=== PATIENT | female | born 1935 | race Caucasian/White ===

== ENCOUNTER 2016-03-01 13:10 | Emergency (ER) | payer OTHER, MEDICARE ==
[~2016-03-01] VITALS: Ht 157.5 cm; Wt 58.0 kg
[~2016-03-01 13:10] MED LIST: ACET-1311 PO; ALBU0.5N2 NEB; APR25 PO; ATOR10TA88 PO; BENZ100C7 PO; CLOP1TAB15 PO; CRG25 PO; ERGO1CAP35 PO; ISOS20TA15 PO; LEVO50TA6 PO; LIDO1CRE24 TOP; NRV5 PO; NTRGSL/4 UT; OXGN; RBTUDL5 PO; SEVE800T7 PO
[2016-03-01 13:17] VITALS: TEMP 36.9; Ht 157.5 cm; Wt 58.0 kg
[2016-03-01] MEDS ORDERED: LSX80 PO (13:43)
[2016-03-01] MEDS ORDERED: B-COCAP21 PO (13:43)
[2016-03-01] MEDS ORDERED: CRG25 PO (13:43)
[2016-03-01] MEDS ORDERED: APR25 PO (13:43)
[2016-03-01] MEDS ORDERED: HYDR-5688 PO (13:43)
[2016-03-01] MEDS ORDERED: VTMD PO (13:43)
[2016-03-01] MEDS ORDERED: LIDO1CRE16 TOP (13:43)
--- NOTE | 2016-03-01 14:35 | EMERGENCY ROOM VISIT NOTE ---
History Report prepared by Dennsi: Huong Cruz Under the Supervision of: Davi BernalO. First contact with patient: 13:40 Chief Complaint: BLEEDING Stated Complaint: LEG OOZING Nursing Triage Summary: pt to the ED via EMS from dialysis where she was sent for uncontrolled bleeding today pt stated she woke up this am with some bleedin from her fistula and pt went to dialysis and they could not get it to stop when they were finished pt did recieve entire dialysis pt has old fistula in left arm and current cath is in the left thigh, pressure dressing applied by EMS and they stated that the bleeding is not squirting pt has no complaints of pain History of Present Illness The patient is an 80 year old female who presents to the Emergency Room with complaints of persistent bleeding from her fistula on her left thigh. The patient states that the bleeding started around 0700 this morning before she had dialysis. She notes that the bleeding was squirting this morning. The patient states that she received her full dialysis this morning prior to arrival. She denies any pain to the area. The patient notes a previous fistula to her left arm for dialysis, but states that fistula no longer works. Source of History: patient Onset: 0700 this morning Position: other (left thigh) Symptom Intensity: no pain Quality: other (bleeding, squirting) Timing: other (persistent) Review of Systems See HPI for pertinent positives & negatives. A total of 10 systems reviewed and were otherwise negative. Past Medical & Surgical Medical Problems: (1) CAD (coronary artery disease) (2) Cat bite (3) Cellulitis of left upper extremity (4) CHF (congestive heart failure) (5) CHF (congestive heart failure), NYHA class II (6) DM2 (diabetes mellitus, type 2) (7) ESRD (end stage renal disease) on dialysis (8) Head injury due to trauma (9) History of atrial fibrillation (10) History of TIA/CVA (11) HLD (hyperlipidemia) (12) HTN (hypertension) (13) Hypothyroidism (14) Ischemic cardiomyopathy (15) LBBB (left bundle branch block) (16) WANDA (obstructive sleep apnea) (17) Pacemaker Surgical Problems: (1) Reduction of SBO (2) S/P cholecystectomy (3) S/p removal of pelvic structures (4) S/P T&A (status post tonsillectomy and adenoidectomy) Family History Heart disease Social History Smoking Status: Unknown if Ever Smoked Alcohol Use: occasionally Drug Use: none Marital Status: Housing Status: lives alone Occupation Status: retired Current/Historical Medications Scheduled Amlodipine Besylate (Amlodipine Besylate), 2.5 MG PO DAILY Atorvastatin (Lipitor), 10 MG PO HS B-Complex W/ C & Folic Acid (Reymundo Caps), 1 CAP PO QPM Carvedilol (Carvedilol), 25 MG PO BID Clopidogrel (Plavix), 75 MG PO DAILY Ergocalciferol (Vitamin D), 50,000 UNITS PO WK Furosemide (Furosemide), 80 MG PO DAILY Hydralazine Hcl (Apresoline), 25 MG PO TID Hydrocodone/Acetaminophen 5MG/325MG ([place] 5MG/325MG), 1 TAB PO Q4 Isosorbide Dinitrate (Isordil), 20 MG PO TID Levothyroxine Sodium (Levothyroxine Sodium), 50 MCG PO DAILY Oxygen (Oxygen), 2 LITERS NA HS Sevelamer Carbonate (Renvela), 2,400 MG PO TIDM Miscellaneous Medications Lidocaine-Prilocaine (Lidocaine/Prilocaine), 1 APPLN TOP Allergies Coded Allergies: BEE STING (Verified Allergy, Severe, ANAPHYLAXIS, 03/01/16) Baclofen (Verified Allergy, Severe, PSYCHOSIS, 03/01/16) MELLO Inhibitors (Verified Allergy, Unknown, UNKNOWN, 03/01/16) Physical Exam Vital Signs Date Time Temp Pulse Resp B/P Pulse Ox O2 Delivery O2 Flow Rate FiO2 03/01/16 13:22 Nasal Cannula 2.0 03/01/16 13:22 78 18 13:17 36.9 79 20 144/73 93 Nasal Cannula 2.0 Physical Exam CONSTITUTIONAL/VITAL SIGNS: Reviewed / noted above. GENERAL: Non-toxic in appearance. INTEGUMENTARY: Warm, dry, and [place]. HEAD: Normocephalic. EYES: without scleral icterus or trauma. ENT/OROPHARYNX: clear and moist. LYMPHADENOPATHY/NECK: Is supple without lymphadenopathy or meningismus. RESPIRATORY: Lungs clear and equal. CARDIOVASCULAR: Regular rate and rhythm. GI/ABDOMEN: Soft and nontender. No organomegaly or pulsatile mass. No rebound or guarding. Normal bowel sounds. EXTREMITIES: There is a dialysis fistula in the left groin area. No active bleeding at this time. Small 1 cm skin wound overlying the fistula that is currently not bleeding. Warm and well perfused. BACK: No CVA tenderness. NEUROLOGICAL: Intact without focal deficits. PSYCHIATRIC: normal affect. MUSCULOSKELETAL: Normally developed with good muscle tone. Medical Decision & Procedures ED Course 1340: Previous medical records were reviewed. The patient was evaluated in room A11B. A complete history and physical examination was performed. 1413: I discussed the patients case with Dr. Shields, Vascular Surgery [facility]. He would like to see the patient in [facility] emergency department today. 1420: I reevaluated the patient and discussed the treatment plan. Her and her family are trying to find transportation to [place] today. 1430: Per the charge nurse, the patient has found transportation to [facility]. They are all in agreement with the treatment plan. She is ready to go. Medical Decision Differential diagnosis include infection, anemia, dialysis fistula dysfunction. This is a 80 year old female who presents with a bleeding dialysis fistula. He bled this morning and during dialysis. She was sent here after full dialysis and had a pressure dressing by EMS and the bleeding is currently stopped. The patient had a dialysis fistula put in by Dr. Barfield in [place]. The fistula is currently not bleeding. I spoke with Dr. Barfield. He asked that the patient could be sent to the ER in [place] so that he can evaluate this. The family is going to take her. She was discharged. [place] [facility] is aware she is coming and called here to let us know Dr. Barfield will be there to see her. Consults Time Called: 1410 Consulting Physician: Dr. Shields, Vascular Surgery [facility] Returned Call: 1413 I discussed the patients case with Dr. Shields, Vascular Surgery [facility]. He would like to see the patient in [facility] emergency department today. Impression Primary Impression: Hemorrhage of arteriovenous fistula Scribe Attestation The scribe's documentation has been prepared under my direction and personally reviewed by me in its entirety. I confirm that the note above accurately reflects all work, treatment, procedures, and medical decision making performed by me. Departure Information Dispostion Home / Self-Care Referrals Gita Tapia D.O. (PCP) Forms HOME CARE DOCUMENTATION FORM, IMPORTANT VISIT INFORMATION Patient Instructions My [facility] Additional Instructions Go to [facility] to see Dr. Shields. He will evaluate your fistula there.
[2016-03-01 14:45] VITALS: BP 162/89; PULSE 75; O2SAT 86
[2016-03-06] MEDS ORDERED: APR25 PO (18:08)
[2016-06-24] MEDS ORDERED: KFLS250100 PO (11:12)
[2016-06-24] MEDS ORDERED: [UNRECOGNIZED DRUG - CODE] PO ×2 (11:12)
[2016-06-24] MEDS ORDERED: ASPEC81 PO (11:12)
[2016-06-24] MEDS ORDERED: LANS30TA3 PO (11:12)
[2016-06-24] MEDS ORDERED: PANT1TAB48 PO (12:59)
[2016-08-01] MEDS ORDERED: SEVE800T7 PO (11:07)
[2016-08-01] MEDS ORDERED: CLOP1TAB15 PO (11:07)
[2016-08-01] MEDS ORDERED: OXGN (11:11)
[2016-08-01] MEDS ORDERED: IPRASOL4 INH (11:11)
[2016-08-01] MEDS ORDERED: NTRGSL/4 UT (11:12)
[2016-08-01] MEDS ORDERED: BENZ100C84 PO (11:13)
[2016-08-01] MEDS ORDERED: ERGO1CAP41 PO (11:13)
[2016-08-31] MEDS ORDERED: PANT40TA PO (11:04)
[2016-08-31] MEDS ORDERED: CZR25 PO (11:04)
== END 2016-03-01 14:45 | disposition short-term general hospital (02) ==
LOC: EDBD 13:10 → C.EDA 13:11
DX: T82.838A Hemorrhage due to vascular prosthetic devices, implants and grafts, initial encounter (principal); Y83.1 Surgical operation with implant of artificial internal device as the cause of abnormal reaction of the patient, or of later complication, without mention of misadventure at the time of the procedure; I25.10 Atherosclerotic heart disease of native coronary artery without angina pectoris; E11.9 Type 2 diabetes mellitus without complications; I48.91 Unspecified atrial fibrillation; N18.6 End stage renal disease; I12.0 Hypertensive chronic kidney disease with stage 5 chronic kidney disease or end stage renal disease; G47.33 Obstructive sleep apnea (adult) (pediatric); E78.5 Hyperlipidemia, unspecified; I25.5 Ischemic cardiomyopathy; E03.9 Hypothyroidism, unspecified; I50.9 Heart failure, unspecified; Z99.81 Dependence on supplemental oxygen; Z86.73 Personal history of transient ischemic attack (TIA), and cerebral infarction without residual deficits; Z91.030 Bee allergy status; Z82.49 Family history of ischemic heart disease and other diseases of the circulatory system

== ENCOUNTER 2016-03-02 07:27 | Inpatient (IN) | payer OTHER, MEDICARE ==
[~2016-03-02] VITALS: Ht 157.5 cm; Wt 58.1 kg
[~2016-03-02 07:27] MED LIST changes: -ACET-1311 PO; -ALBU0.5N2 NEB; +B-COCAP21 PO; -BENZ100C7 PO; -ERGO1CAP35 PO; +HYDR-5688 PO; +LIDO1CRE16 TOP; -LIDO1CRE24 TOP; +LSX80 PO; -NTRGSL/4 UT; -RBTUDL5 PO; +VTMD PO
[2016-03-02] MEDS ORDERED: HYDROmorphone INJ 1 MG/ML SYR IV STA (07:46)
[2016-03-02] MEDS ORDERED: KETOROLAC TROMETHAMINE 30 MG/ML VIAL IV STA (07:46)
[2016-03-02] MEDS ORDERED: ONDANSETRON INJ 2 MG/ML 2 ML VIAL IV STA (07:46)
--- NOTE | 2016-03-02 08:01 | EMERGENCY ROOM VISIT NOTE ---
History Report prepared by Dennis: Alexa Lowry Under the Supervision of: Dr. Noelle Yanes D.O. First contact with patient: 07:42 Chief Complaint: REFERRED BY DOCTOR Stated Complaint: NEEDS BLOOD History of Present Illness The patient is a 80 year old female who presents to the Emergency Room with complaints of worsened weakness this morning. The patient was in the emergency room yesterday for evaluation of a bleeding fistula on her left groin. Dr. Shields of Vascular Surgery in [place] requested that she be discharged from [facility] ED to be seen in [place]. Per patient's family, she had 5 stitches at the fistula site in [place]. She did not have lab work at [facility] or [place]. This morning, the patient was hardly able to sit up on her own due to feeling very weak. She admits that she has not eaten anything since yesterday because "nothing looks good." Her grandson spoke with dialysis this morning who referred her to the ER for possible transfusion. The patient currently denies any pain. She has been drinking water. The patient has type 2 diabetes but does not check her sugar. She is due tomorrow for dialysis. Source of History: patient, family Onset: this morning Position: other (Global) Quality: other (weakness) Timing: worsening Note: Other symptoms: decreased appetite Review of Systems See HPI for pertinent positives & negatives. A total of 10 systems reviewed and were otherwise negative. Past Medical & Surgical Medical Problems: (1) CAD (coronary artery disease) (2) CHF (congestive heart failure), NYHA class II (3) DM2 (diabetes mellitus, type 2) (4) ESRD (end stage renal disease) on dialysis (5) Generalized weakness (6) Head injury due to trauma (7) History of atrial fibrillation (8) History of TIA/CVA (9) HLD (hyperlipidemia) (10) HTN (hypertension) (11) Hypothyroidism (12) Hypoxia (13) Ischemic cardiomyopathy (14) LBBB (left bundle branch block) (15) WANDA (obstructive sleep apnea) (16) Pacemaker Surgical Problems: (1) Reduction of SBO (2) S/P cholecystectomy (3) S/p removal of pelvic structures (4) S/P T&A (status post tonsillectomy and adenoidectomy) Family History Heart disease Social History Smoking Status: Former Smoker Alcohol Use: occasionally Drug Use: none Marital Status: Housing Status: lives alone Occupation Status: retired Current/Historical Medications Scheduled Amlodipine Besylate (Amlodipine Besylate), 2.5 MG PO DAILY Atorvastatin (Lipitor), 10 MG PO HS B-Complex W/ C & Folic Acid (Reymundo Caps), 1 CAP PO QPM Carvedilol (Carvedilol), 25 MG PO BID Clopidogrel (Plavix), 75 MG PO DAILY Ergocalciferol (Vitamin D), 50,000 UNITS PO WK Furosemide (Furosemide), 80 MG PO DAILY Hydralazine Hcl (Apresoline), 25 MG PO TID Isosorbide Dinitrate (Isordil), 20 MG PO TID Levothyroxine Sodium (Levothyroxine Sodium), 50 MCG PO DAILY Oxygen (Oxygen), 2 LITERS NA HS Sevelamer Carbonate (Renvela), 2,400 MG PO TIDM Scheduled PRN Hydrocodone/Acetaminophen 5MG/325MG ([place] 5MG/325MG), 1 TAB PO Q4 PRN for Pain Miscellaneous Medications Lidocaine-Prilocaine (Lidocaine/Prilocaine), 1 APPLN TOP Allergies Coded Allergies: BEE STING (Verified Allergy, Severe, ANAPHYLAXIS, 03/02/16) MELLO Inhibitors (Verified Allergy, Unknown, UNKNOWN, 03/02/16) Baclofen (Verified Adverse Reaction, Severe, PSYCHOSIS, 03/02/16) Physical Exam Vital Signs Date Time Temp Pulse Resp B/P Pulse Ox O2 Delivery O2 Flow Rate FiO2 03/02/16 11:46 99 Nasal Cannula 4.0 03/02/16 10:29 75 16 110/65 03/02/16 08:39 99 Nasal Cannula 4.0 03/02/16 08:38 70 16 115/57 87 Room Air 03/02/16 07:32 37.8 95 18 84/56 87 Room Air Physical Exam HEENT: Head - normocephalic and atraumatic Pupils are equal, round, and reactive to light. Extraocular eye muscles are intact, and sclera are anicteric. Nose - moist nasal mucosa without discharge. Mouth - moist buccal mucosa. Oropharynx is nonerythematous and there is no tonsillar exudate or edema noted. Neck: Supple; no JVD, nuchal rigidity, cervical lymphadenopathy. Heart: Regular rate and rhythm. 4/6 systolic murmur, no clicks or gallops appreciated. Lungs: Clear to auscultation bilaterally with no wheezes, rales, or rhonchi. Abdomen: Soft, completely nontender, nondistended, with good bowel sounds. There are no palpable pulsatile masses or hepatosplenomegaly. There is no guarding, rigidity, or rebound noted. Extremities: No evidence of cyanosis, clubbing, or edema. There are easily palpable peripheral pulses. The fistula site is still covered with the pressure dressings applied by the vascular surgeon yesterday. They are dry. They are to be removed tomorrow at dialysis. Skin: Extremely pale, warm and dry with poor turgor and no rashes. Medical Decision & Procedures Laboratory Results Test 03/02/16 08:11 Immature Granulocyte % (Auto) 0.3 % White Blood Count 7.86 K/uL (4.8-10.8) Red Blood Count 2.94 M/uL (4.2-5.4) Hemoglobin 9.7 g/dL (12.0-16.0) Hematocrit 31.0 % (37-47) Mean Corpuscular Volume 105.4 fL (80-100) Mean Corpuscular Hemoglobin 33.0 pg (25-34) Mean Corpuscular Hemoglobin Concent 31.3 g/dl (32-36) Platelet Count 69 K/uL (130-400) Mean Platelet Volume 9.7 fL (7.4-10.4) Neutrophils (%) (Auto) 90.1 % Lymphocytes (%) (Auto) 4.7 % Monocytes (%) (Auto) 4.7 % Eosinophils (%) (Auto) 0.1 % Basophils (%) (Auto) 0.1 % Neutrophils # (Auto) 7.08 K/uL (1.4-6.5) Lymphocytes # (Auto) 0.37 K/uL (1.2-3.4) Monocytes # (Auto) 0.37 K/uL (0.11-0.59) Eosinophils # (Auto) 0.01 K/uL (0-0.5) Basophils # (Auto) 0.01 K/uL (0-0.2) Immature Granulocyte # (Auto) 0.02 K/uL (0.00-0.02) Platelet Estimate DECREASED Polychromasia 1+ Macrocytosis PRESENT Ovalocytes 1+ Erythrocyte Sedimentation Rate 5 mm/hr (0-21) Prothrombin Time 12.2 SECONDS (9.0-12.0) Prothromb Time International Ratio 1.1 (0.9-1.1) Activated Partial Thromboplast Time 29.4 SECONDS (21.0-31.0) Partial Thromboplastin Ratio 1.1 Total Bilirubin 0.7 mg/dl (0.2-1) Aspartate Amino Transf (AST/SGOT) 22 U/L (15-37) Alanine Aminotransferase (ALT/SGPT) 23 U/L (12-78) Alkaline Phosphatase 126 U/L (45-117) Total Protein 6.0 gm/dl (6.4-8.2) Albumin 3.0 gm/dl (3.4-5.0) Globulin 3.0 gm/dl (2.5-4.0) Albumin/Globulin Ratio 1.0 (0.9-2) Thyroid Stimulating Hormone (TSH) 1.670 uIu/ml (0.300-4.500) Laboratory results per my review. Medications Administered Medications (Trade) Dose Ordered Sig/Claudette Route Start Time Stop Time Status Last Admin Dose Admin Sodium Chloride (Nss 500ml) 500 ml @ 999 mls/hr Q31M STAT IV 03/02/16 08:48 03/02/16 09:18 DC 03/02/16 09:05 999 MLS/HR Procedure Medications: NSS 500 ml @ 999 mls/hr IV ED Course 0748: The patient was evaluated in room B5. A complete history and physical examination were performed. Nursing notes and previous electronic medical records were reviewed. IV lock was established and labs were drawn as above. 0848: Ordered NSS 500 ml @ 999 mls/hr IV. 0903: I reassessed the patient and updated her and her family on results so far. The patient will eat breakfast and get fluids here but she does not want to be hospitalized. I asked the family if they felt that the patient could go home safely and they said that they live close to her and will stay with her. 1050: I reassessed the patient. At this time, the patient's family thinks that she is too weak to go home, but the patient does not want to stay. Nursing staff will walk her. 1055: Per nursing staff, the patient seemed to be walking okay with a walker. 1125: I reassessed the patient. Her family was insistent that she be hospitalized. I offered the option of [facility] to the patient but she declined, as she had a bad experience there in the past. She has had a good experience at [facility], but does not feel that she needs to go there. 1131: I discussed the case with JORGE Spence [facility]. The patient will be evaluated for further management. Medical Decision The patient is a 80 year old female who presents to the ED with weakness. Differential diagnosis includes dehydration, blood loss anemia, hypoglycemia. Labs: No leukocytosis, hemoglobin 9.7, hematocrit 31, platelet count 69, BUN 33 , creatinine 4.6, magnesium 2.6, glucose of 100, LFTs are normal except for mildly elevated alk phos at 126, coagulation studies normal. This is an 80-year-old female patient to is a dialysis patient. She had bleeding from her fistula yesterday. She was seen here and then taken to [facility] where she saw her vascular surgeon. Vascular surgeon placed 5 sutures at that time. The bleeding. Upon awakening this morning, the patient had moderate weakness in the family was concerned that she appeared more pale than usual and may have lost too much blood yesterday. The patient's H&H was stable today. Vital signs were stable. However, the patient does seem weak exam families concern for her safety with ambulation. I discussed the case with the [facility] and they will evaluate for further management. Consults Time Called: 1125 Consulting Physician: JORGE Spence [facility] Returned Call: 1131 I discussed the case with her. The patient will be evaluated for further management. Impression Primary Impression: Generalized weakness Scribe Attestation The scribe's documentation has been prepared under my direction and personally reviewed by me in its entirety. I confirm that the note above accurately reflects all work, treatment, procedures, and medical decision making performed by me. Departure Information Dispostion Being Evaluated By Hospitalist Referrals Gita Tapia D.O. (PCP) Patient Instructions My [facility]
[2016-03-02 08:31] LABS: INR 1.1 (0.9-1.1); PARTIAL THROMBOPLASTIN RATIO 1.1; PROTHROMBIN TIME (PATIENT) 12.2 SECONDS (9.0-12.0)
[2016-03-02 08:35] LABS: MEAN CELL VOLUME 105.4 fL (80-100); MEAN CORPUSCULAR HGB CONC 31.3 g/dl (32-36); RED BLOOD COUNT 2.94 M/uL (4.2-5.4); WHITE BLOOD COUNT 7.86 K/uL (4.8-10.8)
[2016-03-02 08:42] LABS: BASO % 0.1 %; BASO ABS # 0.01 K/uL (0-0.2); COMPLETE YES; EOS % 0.1 %; IG% 0.3 %; LYMPH % 4.7 %; LYMPH ABS # 0.37 K/uL (1.2-3.4); MEAN PLATELET VOLUME 9.7 fL (7.4-10.4); MONO % 4.7 %; NEUT % 90.1 %; OVALOCYTES 1+; PLATELET COUNT 69 K/uL (130-400); PLT ESTIMATE DECREASED; POLYCHROMASIA 1+
[2016-03-02] MEDS ORDERED: SODIUM CHLORIDE 0.9% 500ML 500 ML IV STA (08:48)
[2016-03-02 08:58] LABS: ALKALINE PHOSPHATASE 126 U/L (45-117); ALT/SGPT 23 U/L (12-78); AST/SGOT 22 U/L (15-37); BLOOD UREA NITROGEN 33 mg/dl (7-18); BUN/CREATININE RATIO 7.2 (10-20); CALCIUM 8.6 mg/dl (8.5-10.1); CARBON DIOXIDE 23 mmol/L (21-32); CHLORIDE 103 mmol/L (98-107); GLUCOSE 100 mg/dl (70-99); MAGNESIUM 2.6 mg/dl (1.8-2.4); POTASSIUM 5.1 mmol/L (3.5-5.1); SODIUM 136 mmol/L (136-145)
[2016-03-02 11:46] VITALS: O2SAT 99; Ht 157.5 cm; Wt 58.1 kg
--- NOTE | 2016-03-02 12:27 | DIAGNOSTIC IMAGING REPORT ---
CHEST ONE VIEW PORTABLE CLINICAL HISTORY: hypoxia COMPARISON STUDY: 10/20/2015 FINDINGS: The heart remains enlarged. There is a left subclavian implantable defibrillator present. There is a left-sided central venous catheter. There is a vascular stent present on the left. There is a calcified granuloma within the right upper lung zone. There is mild pulmonary vascular congestion unchanged the prior study. There is no lobar consolidation.[ IMPRESSION: Cardiomegaly and persistent mild pulmonary vascular congestion. No evidence of lobar consolidation Electronically signed by: Clifton Mosher M.D. 03/02/2016 12:25 PM Dictated Date/Time: 03/02/2016 12:24 PM
[2016-03-02] MEDS ORDERED: ACETAMINOPHEN 325 MG TAB PO PRN (12:30)
[2016-03-02] MEDS ORDERED: ONDANSETRON INJ 2 MG/ML 2 ML VIAL IV PRN (12:30)
--- NOTE | 2016-03-02 13:09 | History and Physical ---
History & Physical Date & Time of Service: Mar 02, 2016 at 12:41 Chief Complaint: Needs Blood Primary Care Physician: Gita Tapia D.O. History of Present Illness Source: patient, family, clinic records, hospital records Patient seen and examined. 80 year old female with PMHx of ESRD on dialysis, HTN , nocturnal hypoxia, CAD, DM2, H/o CVA and other problems listed below presents to the ED complaining of generalized weakness x 1 day. Family reports yesterday the patient came to the ED because she was bleeding from her fistula site, bleeding was stopped and , she was discharged from this ED after speaking to her vascular surgeon at [facility] who requested she go to [place]. In [place] 5 sutures were placed around the fistula site and patient was discharged home. Patient lives alone and apparently this morning she felt too weak to get a glass of water and she called her family. Family states that she was too weak to walk without assistance, and hadn't ate anything this morning. They called her dialysis center who thought the patient may have lost blood yesterday and referred her to the ED for workup. The patient reports she is always cold and her family said she "felt warm"" this morning. She denies URI symptoms, chest pain, SOB, nausea, vomiting, diarrhea, calf pain and edema. She does not urinate at baseline. In the ED patient is hypoxic on RA, she has low grade fever 100.04, CXR is negative, CBC, PRP are baseline. She walked the halls with nursing staff and apparently did well. She ate breakfast. Family does not feel she is safe to go home and are requesting admission. Past Medical/Surgical History Medical Problems: (1) CAD (coronary artery disease) Status: Chronic (2) CHF (congestive heart failure), NYHA class II Status: Chronic (3) DM2 (diabetes mellitus, type 2) Status: Chronic (4) ESRD (end stage renal disease) on dialysis Status: Chronic (5) History of atrial fibrillation Status: Chronic (6) History of TIA/CVA Permanent Comment: per records. no residual deficit. Status: Chronic (7) HLD (hyperlipidemia) Status: Chronic (8) HTN (hypertension) Status: Chronic (9) Hypothyroidism Status: Chronic (10) Ischemic cardiomyopathy Status: Chronic (11) LBBB (left bundle branch block) Status: Chronic (12) WANDA (obstructive sleep apnea) Permanent Comment: on nocturnal oxygen Status: Chronic (13) Pacemaker Status: Chronic Surgical Problems: (1) Reduction of SBO Status: Chronic (2) S/P cholecystectomy Status: Chronic (3) S/p removal of pelvic structures Status: Chronic (4) S/P T&A (status post tonsillectomy and adenoidectomy) Status: Chronic Family History Heart disease Social History Smoking Status: Former Smoker Alcohol Use: none Drug Use: none Marital Status: Housing status: lives alone Occupational Status: retired Immunizations History of Influenza Vaccine: No Influenza Vaccine Date: Dec 10, 2008 History of Tetanus Vaccine?: Yes History of Pneumococcal: No Pneumococcal Date: Jul 22, 1999 History of Hepatitis B Vaccine: Yes Multi-Drug Resistant Organisms History of MDRO: No Allergies Coded Allergies: BEE STING (Verified Allergy, Severe, ANAPHYLAXIS, 03/02/16) MELLO Inhibitors (Verified Allergy, Unknown, UNKNOWN, 03/02/16) Baclofen (Verified Adverse Reaction, Severe, PSYCHOSIS, 03/02/16) Home Medications Scheduled Amlodipine Besylate (Amlodipine Besylate), 2.5 MG PO DAILY Atorvastatin (Lipitor), 10 MG PO HS B-Complex W/ C & Folic Acid (Reymundo Caps), 1 CAP PO QPM Carvedilol (Carvedilol), 25 MG PO BID Clopidogrel (Plavix), 75 MG PO DAILY Ergocalciferol (Vitamin D), 50,000 UNITS PO WK Furosemide (Furosemide), 80 MG PO DAILY Hydralazine Hcl (Apresoline), 25 MG PO TID Hydrocodone/Acetaminophen 5MG/325MG ([place] 5MG/325MG), 1 TAB PO Q4 Isosorbide Dinitrate (Isordil), 20 MG PO TID Levothyroxine Sodium (Levothyroxine Sodium), 50 MCG PO DAILY Oxygen (Oxygen), 2 LITERS NA HS Sevelamer Carbonate (Renvela), 2,400 MG PO TIDM Miscellaneous Medications Lidocaine-Prilocaine (Lidocaine/Prilocaine), 1 APPLN TOP Review of Systems See above for pertinent positives & negatives. A total of 10 systems reviewed and were otherwise negative. Physical Exam Vital Signs Date Time Temp Pulse Resp B/P Pulse Ox O2 Delivery O2 Flow Rate FiO2 03/02/16 11:46 99 Nasal Cannula 4.0 1/19/17 10:29 75 16 110/65 03/02/16 08:39 99 Nasal Cannula 4.0 03/02/16 08:38 70 16 115/57 87 Room Air 03/02/16 07:32 37.8 95 18 84/56 87 Room Air General Appearance: no apparent distress, + pertinent finding (Frail elderly 80 year old female lying in bed in NAD with family at bedside ) Head: normocephalic, atraumatic Eyes: PERRL, EOMI, sclerae normal ENT: normal ENT inspection, pharynx normal Neck: supple, no JVD, trachea midline Respiratory/Chest: chest non-tender, lungs clear, normal breath sounds, no respiratory distress, no accessory muscle use Cardiovascular: regular rate, rhythm, no edema, no gallop, no JVD, normal peripheral pulses, + systolic murmur Abdomen/GI: normal bowel sounds, non tender, soft Back: normal inspection, no muscle spasm Extremities/Musculoskelatal: no calf tenderness, normal capillary refill, no pedal edema, + pertinent finding (strength 4/5, equal in all extremities ) Neurologic/Psych: alert, oriented x 3, + pertinent finding (no focal deficits ) Skin: normal color, warm/dry, no rash, + pertinent finding (frail skin, area on right groin surrounding fistula without signs of infection dressing to fistula site I/C/D ) Lymphatic: no adenopathy Diagnostics Laboratory Results Results Past 24 Hours Test 03/02/16 08:07 03/02/16 08:11 Range/Units Bedside Glucose 97 70-90 mg/dl White Blood Count 7.86 4.8-10.8 K/uL Red Blood Count 2.94 4.2-5.4 M/uL Hemoglobin 9.7 12.0-16.0 g/dL Hematocrit 31.0 37-47 % Mean Corpuscular Volume 105.4 80-100 fL Mean Corpuscular Hemoglobin 33.0 25-34 pg Mean Corpuscular Hemoglobin Concent 31.3 32-36 g/dl Platelet Count 69 130-400 K/uL Mean Platelet Volume 9.7 7.4-10.4 fL Neutrophils (%) (Auto) 90.1 % Lymphocytes (%) (Auto) 4.7 % Monocytes (%) (Auto) 4.7 % Eosinophils (%) (Auto) 0.1 % Basophils (%) (Auto) 0.1 % Neutrophils # (Auto) 7.08 1.4-6.5 K/uL Lymphocytes # (Auto) 0.37 1.2-3.4 K/uL Monocytes # (Auto) 0.37 0.11-0.59 K/uL Eosinophils # (Auto) 0.01 0-0.5 K/uL Basophils # (Auto) 0.01 0-0.2 K/uL RDW Standard Deviation 66.3 36.4-46.3 fL RDW Coefficient of Variation 17.3 11.5-14.5 % Immature Granulocyte % (Auto) 0.3 % Immature Granulocyte # (Auto) 0.02 0.00-0.02 K/uL Platelet Estimate DECREASED Polychromasia 1+ Macrocytosis PRESENT Ovalocytes 1+ Prothrombin Time 12.2 9.0-12.0 SECONDS Prothromb Time International Ratio 1.1 0.9-1.1 Activated Partial Thromboplast Time 29.4 21.0-31.0 SECONDS Partial Thromboplastin Ratio 1.1 Sodium Level 136 136-145 mmol/L Potassium Level 5.1 3.5-5.1 mmol/L Chloride Level 103 98-107 mmol/L Carbon Dioxide Level 23 21-32 mmol/L Anion Gap 10.0 3-11 mmol/L Blood Urea Nitrogen 33 7-18 mg/dl Creatinine 4.60 0.60-1.20 mg/dl Estimated GFR () 9.6 Estimated GFR (Non- 8.3 BUN/Creatinine Ratio 7.2 10-20 Random Glucose 100 70-99 mg/dl Calcium Level 8.6 8.5-10.1 mg/dl Magnesium Level 2.6 1.8-2.4 mg/dl Total Bilirubin 0.7 0.2-1 mg/dl Aspartate Amino Transf (AST/SGOT) 22 15-37 U/L Alanine Aminotransferase (ALT/SGPT) 23 12-78 U/L Alkaline Phosphatase 126 45-117 U/L Total Protein 6.0 6.4-8.2 gm/dl Albumin 3.0 3.4-5.0 gm/dl Globulin 3.0 2.5-4.0 gm/dl Albumin/Globulin Ratio 1.0 0.9-2 Microbiology Results 03/02/16 Blood Culture, Bertrand Batch Pending 03/02/16 Blood Culture, Bertrand Batch Pending Diagnostic Radiology CXR Per radiologist read: IMPRESSION: Cardiomegaly and persistent mild pulmonary vascular congestion. No evidence of lobar consolidation Impression Assessment and Plan 80 year old female presents to the ED complaining of generalized weakness was here yesterday and treated for bleeding fistula site at [facility] with suturing. She was discharged home. Returns today with generalized weakness GENERALIZED WEAKNESS -Admit to med/surg -? cause workup reveals low grade fevers, stable, Hgb, CXR without pneumonia -differential diagnosed to include, influenza, bacteremia, deconditioned state, anemia and other causes -Check flu PCR -obtain blood cultures -ESR pending -TSH pending -B12 pending -Empirically treat with Vancomycin for now - pharmacy consulted for dosing -PT/OT eval -CBC, PRP, Mg in AM LOW GRADE FEVER -Had sutures placed to fistula site yesterday,skin looks okay -no leukocytosis -obtain blood cultures -check ESR -empirically cover with vancomycin for now EPISODIC HYPOXIA -patient uses nocturnal oxygen, ? if patient was drowsy/sleeping when readings were acquired -was not hypoxic on RA when speaking with me -CXR: stable -continuous pulse ox ordered -may need 2 step prior to discharge THROMBOCYTOPENIA -platelet count 66 today -no signs of active bleeding -continue Plavix for now -repeat in AM ESRD ON DIALYSIS -Has dialysis MWF -follows with Dr. Estrella -nephrology consulted placed for dialysis -lytes stable SYSTOLIC CHF -Last echo with EF of 40-45% -appears euvolemic -states she does not urinate but is on Lasix, will continue -is on dialysis nephrology consulted ANEMIA OF CHRONIC DISEASE -hg stable -monitor HTN - was low on arrival, has improved -continue BB, Hydralazine, Amlodipine, nitrate, Lasix, with hold parameters -monitor closely NOCTURNAL HYPOXIA -continue Supplemental oxygen -continuous pulse ox ordered, may need continuous supplemental oxygen as outpatient DM2 -diet controlled -consistent carb diet HYPOTHYROIDISM -check TSH -continue Synthroid CAD -stable -continue Plavix, BB, Imdur, Statin HLD -continue Statin H/O CVA -continue aspirin, statin DVT PROPHYLAXIS: SCDs RE: thrombocytopenia CODE STATUS: FULL CODE DISPO:In my clinical judgment this beneficiary meets acute admission criteria, established by [facility], that includes being hospitalized through two midnights. discharge planning eval Patient seen in collaboration with Dr. Campuzano Attending Note: Patient is an 80 Yr old female with PMH of ESRD on HD, HTN, oxygen dependency, CAD, DM II and H/o CVA presents with history of severe generalized weakness, difficulty with ambulation as a result. Has low grade fever. Patient had bleeding from her fistula site yesterday which was sutured yesterday. She denies any history of SOB, chest pain, abd pain, change in bowel/bladder habits. Family concerned and requested to get admitted as they feel her to be unsafe to go home. Physical Exam: Vital signs as noted above General: No distress, moderately built and nourished, very fragile HEENT: NC/AT, EOMI, PERRLA CVS: S1, S2, + systolic murmur Resp: Normal breath sounds, CTA, no accessory muscle use Abd: Soft, non tender, BS present PULP OPERATOR: No focal deficits Ext: No cyanosis, clubbing, edema Skin:Fistula on LE non erythematous, tender, in dressing, no discharge Assessment and Plan: Generalized Weakness: Likely deconditioned secondary to comorbidities Low grade fever, R/O Bacteremia Fistula site sutured yesterday Check blood cultures, TSH, B 12, PCR for flu Empirically start IV Vanco CXR: wnl PT/OT Chronic Oxygen Dependency: Denies any respiratory symptoms On Nocturnal oxygen at baseline May need 2 step eval prior to discharge Agree with assessment and plan of Carole Bhatti PA-C as above Advanced Directives Existing Advance Directive: Yes Existing Living Will: Yes Existing Power of Herbarium Curator: Yes VTE Prophylaxis VTE Risk Assessment Done? Y/N: Yes Risk Level: Moderate
[2016-03-02] MEDS ORDERED: VANCOMYCIN CONSULT ACTIVE PRN (13:45)
[2016-03-02] MEDS ORDERED: VANCOMYCIN INJ 1,250 MG in SODIUM CHLORIDE 0.9% 250ML 250 ML IV SCH (14:00)
[2016-03-02 14:46] VITALS: BP 143/68; PULSE 77; TEMP 37.6; O2SAT 87; O2SAT 93
--- NOTE | 2016-03-02 15:59 | Pharmacy Progress Note ---
Pharmacy Antibiotic Consult Date of Service: Mar 02, 2016. Pharmacy Dosing Scope Pharmacy is consulted to initiate vancomycin IV dosing therapy, order appropriate labs and adjust drug dose/frequency. Subjective The patient is a 80 year old female admitted on Mar 02, 2016 at 12:36 with generalized weakness. Objective Height (Feet): 5 Height (Inches): 2.00 Weight (Kilograms): 62.000 Lab Results (24hrs): Laboratory Tests Test 03/02/16 08:11 BUN/Creatinine Ratio 7.2 Blood Urea Nitrogen 33 mg/dl Creatinine 4.60 mg/dl White Blood Count 7.86 K/uL Red Blood Count 2.94 M/uL Hemoglobin 9.7 g/dL Hematocrit 31.0 % Mean Corpuscular Volume 105.4 fL Mean Corpuscular Hemoglobin 33.0 pg Mean Corpuscular Hemoglobin Concent 31.3 g/dl Platelet Count 69 K/uL Mean Platelet Volume 9.7 fL Neutrophils (%) (Auto) 90.1 % Lymphocytes (%) (Auto) 4.7 % Monocytes (%) (Auto) 4.7 % Eosinophils (%) (Auto) 0.1 % Basophils (%) (Auto) 0.1 % Neutrophils # (Auto) 7.08 K/uL Lymphocytes # (Auto) 0.37 K/uL Monocytes # (Auto) 0.37 K/uL Eosinophils # (Auto) 0.01 K/uL Basophils # (Auto) 0.01 K/uL Micro Results: Item Value Date Time Blood Culture Received 03/02/16 1325 Blood Pending Blood Culture Received 03/02/16 1325 Blood Pending Recent Pertinent Medications n/a Assessment & Plan Assessment: * 80 y/o with ESRD on HD who c/o generalized weakness * usually dialyzes on MWF * Febrile on admission - starting vancomycin empirically * Flu PCR and blood cultures pending Plan: * Continue empiric vancomycin * Loading dose: 1250 mg IV (~20mg/kg) X 1 dose * Random level on 03/03 with AM labs * re-dose according to random level and HD schedule * When able, determine site of infection and update length of therapy Pharmacy will continue to follow and will adjust dose/frequency as necessary. Thank you
[2016-03-02 16:00] VITALS: O2SAT 93
[2016-03-02] MEDS ORDERED: HYDROCODONE/ACETAMOPHEN 5/325MG TAB PO PRN (16:00)
[2016-03-02] MEDS: SEVELAMER HYDROCH 800 MG TAB PO SCH (17:15)
[2016-03-02] MEDS: ISOSORBIDE DINITRATE 20 MG TAB PO SCH (17:15)
--- NOTE | 2016-03-02 18:30 | NEPHROLOGY CONSULTATION ---
DATE OF CONSULTATION: 03/02/2016 ATTENDING OF RECORD: Dr. Mosher. REASON FOR CONSULTATION: ESRD. HISTORY OF PRESENT ILLNESS: This 80-year-old female with significant history of end-stage renal disease who dialyzes at the [facility] on Mondays, Wednesdays, and Fridays. The patient during Sunday's treatment had significant bleeding. Also prior to coming in to dialysis had significant bleeding from access. Dr. Shields of [place] who has worked on her left femoral graft sutured parts of it, to stop the bleeding. The patient was sent home the following day, patient was quite tired and fatigued and patient was admitted to the hospital for generalized weakness. Upon palpating the fistula, there is no bruit or thrill noted, appears access has been clotted. The patient is comfortable. Her main complaint is fatigue. ROS: no chest pain, +tender legs, +sob with exertion, +fatigue, +anorexia, no n/ v, no fevers or chills, no rash, no dysphagia, no blurry vision. no significant weight loss or weight gain. all other review of systems otherwise negative. PAST MEDICAL HISTORY: Coronary artery disease, congestive heart failure, type 2 diabetes, end-stage renal disease on dialysis, atrial fibrillation, history of stroke, hyperlipidemia, hypertension, hypothyroidism, obstructive sleep apnea on oxygen. PAST SURGICAL HISTORY: Of a pacemaker, multiple fistula and tunneled lines, cholecystectomy, small-bowel obstruction surgery and tonsillectomy. FAMILY HISTORY: Significant for heart disease. SOCIAL HISTORY: Former smoker, no alcohol, no drugs. He is and lives alone. CURRENT MEDICATIONS: Norvasc 2.5 mg daily, Plavix 75 mg daily, Lasix 80 mg daily, Procrit for tomorrow on dialysis, Synthroid 50 mcg daily, Lipitor 10 mg at night, Nephrocaps daily, Coreg 25 mg p.o. b.i.d., hydralazine 25 mg p.o. t.i.d., Isordil 20 mg p.o. t.i.d., Renagel 2400 mg p.o. t.i.d. with meals, IV vancomycin. PHYSICAL EXAMINATION: VITAL SIGNS: Temperature 37.6, pulse 77, respiratory rate 18, blood pressure 143/68; satting 87% on room air, 93% with 2 liters. GENERAL: Awake, alert, oriented x3. EYES: No scleral icterus. ENT: Moist mucous membranes. NECK: Supple. PULMONARY: Clear to auscultation. CARDIAC: Positive systolic murmur. ABDOMEN: Bowel sounds positive, soft, nontender, nondistended. EXTREMITIES: No clubbing, cyanosis or edema. NEUROLOGICALLY: Just generalized weakness, otherwise nonfocal. ACCESS: Left groin access with no bruit or thrill. LABORATORIES: White count 7.8, H\T\H 9.7 and 31, platelet count 69. Sed rate is 5. Sodium level is 136, potassium is 5.1, chloride is 103, bicarb is 23, BUN is 33, creatinine is 4.6, glucose is 100. Calcium is 8.6, mag is 2.6, albumin is 3, TSH 1.67. Vitamin B12 682. INR is 1.1. Blood cultures are pending. IMAGING DATA: Chest x-ray shows cardiomegaly and persistent mild pulmonary vascular congestion, no evidence of consolidation. IMPRESSION: 1. End-stage renal disease: The patient had a significant bleeding from her left femoral graft placement and has clotted off. The patient is followed by Dr. Shields for her graft. There are tentative plans to do a declotting of the graft next week as an outpatient. I called and spoke to Dr. Shields's office for recommendations. For now, the patient has agreed to allow Dr. Jacobsen to place a tunneled dialysis catheter. Upper arms and neck are unable to have a tunneled dialysis catheter placed successfully, likely will need a femoral tunneled dialysis catheter. 2. Anemia of renal failure. Hemoglobin levels are below 10 and will go ahead and redose Procrit. 3. Chronic thrombocytopenia. The patient does have an element of chronic thrombocytopenia of unclear etiology, however, chronic and stable. We will monitor levels and defer to primary hospitalist for further evaluation if needed. Overall, the patient is quite fatigued; however, has had an exhaustive 2 days with losing a significant amount of blood and her symptoms of fatigue are appropriate for the clinical history. For now, need a tunneled dialysis catheter for good access and then will arrange for dialysis afterwards. [facility]
[2016-03-02 20:55] VITALS: BP 147/71; PULSE 71
[2016-03-02] MEDS: ATORVASTATIN 10 MG TAB PO SCH (20:56)
[2016-03-02] MEDS: NEPHROCAPS PO SCH (20:56)
[2016-03-02] MEDS: CARVEDILOL 25 MG TAB PO SCH (20:57)
[2016-03-02 22:48] VITALS: BP 131/67; PULSE 81; TEMP 37.4; O2SAT 98
[2016-03-03] VITALS (19 sets, daily range): BP systolic 100–131; BP diastolic 50–74; PULSE 58–80; TEMP 36–37.1; O2SAT 90–100
[2016-03-03] MEDS: LEVOTHYROXINE 50 MCG TAB PO SCH (06:06)
[2016-03-03 06:48] LABS: HEMATOCRIT 30.3 % (37-47); MEAN CELL VOLUME 104.5 fL (80-100); MEAN CORPUSCULAR HEMOGLOBIN 32.8 pg (25-34); MEAN CORPUSCULAR HGB CONC 31.4 g/dl (32-36); WHITE BLOOD COUNT 4.04 K/uL (4.8-10.8)
[2016-03-03 06:49] LABS: MEAN PLATELET VOLUME 9.5 fL (7.4-10.4); PLATELET COUNT 60 K/uL (130-400)
[2016-03-03] MEDS: ISOSORBIDE DINITRATE 20 MG TAB PO SCH ×3 (06:49→17:09)
[2016-03-03 07:35] LABS: BUN/CREATININE RATIO 8.4 (10-20); CALCIUM 8.4 mg/dl (8.5-10.1); CREATININE 6.1 mg/dl (0.60-1.20); MAGNESIUM 2.6 mg/dl (1.8-2.4); POTASSIUM 5.6 mmol/L (3.5-5.1)
[2016-03-03] MEDS ORDERED: EPOETIN ALFA 10,000 UNITS/ML VIAL IV. SCH (08:00)
[2016-03-03] MEDS: SEVELAMER HYDROCH 800 MG TAB PO SCH ×3 (08:17→17:08)
[2016-03-03] MEDS: FUROSEMIDE 80 MG TAB PO SCH (08:18)
[2016-03-03] MEDS: CARVEDILOL 25 MG TAB PO SCH ×2 (08:19→21:37)
--- NOTE | 2016-03-03 08:57 | Progress Note ---
Progress Note Patient for a permcath insertion today. May be femoral. I have discussed the risks options and benefits of the procedure with the patient. The patient understands the risks options and benefits and agrees to the procedure. I have examined the patient, reviewed the History & Physical and in the interval since the performance of the History & Physical I have noted the following changes of clinical significance: No changes noted
--- NOTE | 2016-03-03 08:57 | Procedure Note ---
Pre-Mod Sedation Assessment General Date of Moderate Sedation: Mar 03, 2016. Vital Signs: Vital Signs Past 12 Hours Date Time Temp Pulse Resp B/P Pulse Ox O2 Delivery O2 Flow Rate FiO2 03/03/16 07:59 37.1 64 18 127/67 97 Room Air 03/03/16 07:07 37.1 64 18 127/67 97 Room Air 03/03/16 00:00 Nasal Cannula 2.0 03/02/16 22:48 37.4 81 18 131/67 98 Nasal Cannula 2.0 Pre-Sedation Airway Assessment Oral Cavity: Dentures Short Thick Neck: No Hx of Sleep Apnea: No Smoking Status: Former Smoker Mallampati Classification: Class I ASA Classification: Class II Notes The planned sedation has been discussed with the patient and consent obtained. I have identified the patient, determined the appropriateness of sedation and have assessed the patient immediately prior to the procedure. All medicine(s) and interventions are by my order.
[2016-03-03] MEDS ORDERED: CLOPIDOGREL BISULFATE 75 MG TAB PO SCH (09:00)
[2016-03-03] MEDS ORDERED: AMLODIPINE BESYLATE 5 MG TAB PO SCH (09:00)
--- NOTE | 2016-03-03 09:32 | Surgery Consultation ---
Consultation Date of Service Mar 03, 2016. Chief Complaint thrombosed AV graft LLE History of Present Illness The patient is a 80 year old female with multiple medical problems, including ESRD on HD, seen today d/t thrombosed L thigh AV graft. Pt apparently had uncontrolled bleeding of her graft after HD 2 days ago and had a few stitches placed to stop bleeding. Then noted no thrill or bruit in L thigh graft yesterday and came to [facility]. Pt denies MARTINEZ, fever, chills, chest pain, SOB, abd pain, N/V, rest pain, claudication, other complaints. Vitals Vital Signs Past 12 Hours Date Time Temp Pulse Resp B/P Pulse Ox O2 Delivery O2 Flow Rate FiO2 03/03/16 07:59 37.1 64 18 127/67 97 Room Air 03/03/16 07:07 37.1 64 18 127/67 97 Room Air 03/03/16 00:00 Nasal Cannula 2.0 03/02/16 22:48 37.4 81 18 131/67 98 Nasal Cannula 2.0 Allergies Coded Allergies: BEE STING (Verified Allergy, Severe, ANAPHYLAXIS, 03/02/16) MELLO Inhibitors (Verified Allergy, Unknown, UNKNOWN, 03/02/16) Baclofen (Verified Adverse Reaction, Severe, PSYCHOSIS, 03/02/16) Home Medications Scheduled Amlodipine Besylate (Amlodipine Besylate), 2.5 MG PO DAILY Atorvastatin (Lipitor), 10 MG PO HS B-Complex W/ C & Folic Acid (Reymundo Caps), 1 CAP PO QPM Carvedilol (Carvedilol), 25 MG PO BID Clopidogrel (Plavix), 75 MG PO DAILY Ergocalciferol (Vitamin D), 50,000 UNITS PO WK Furosemide (Furosemide), 80 MG PO DAILY Hydralazine Hcl (Apresoline), 25 MG PO TID Isosorbide Dinitrate (Isordil), 20 MG PO TID Levothyroxine Sodium (Levothyroxine Sodium), 50 MCG PO DAILY Oxygen (Oxygen), 2 LITERS NA HS Sevelamer Carbonate (Renvela), 2,400 MG PO TIDM Scheduled PRN Hydrocodone/Acetaminophen 5MG/325MG ([place] 5MG/325MG), 1 TAB PO Q4 PRN for Pain Miscellaneous Medications Lidocaine-Prilocaine (Lidocaine/Prilocaine), 1 APPLN TOP Problem List Medical Problems: (1) CAD (coronary artery disease) (2) CHF (congestive heart failure), NYHA class II (3) DM2 (diabetes mellitus, type 2) (4) ESRD (end stage renal disease) on dialysis (5) Generalized weakness (6) Head injury due to trauma (7) History of atrial fibrillation (8) History of TIA/CVA (9) HLD (hyperlipidemia) (10) HTN (hypertension) (11) Hypothyroidism (12) Hypoxia (13) Ischemic cardiomyopathy (14) LBBB (left bundle branch block) (15) WANDA (obstructive sleep apnea) (16) Pacemaker Surgical Problems: (1) Reduction of SBO (2) S/P cholecystectomy (3) S/p removal of pelvic structures (4) S/P T&A (status post tonsillectomy and adenoidectomy) Surgical / Medical History Hx Cardiac Surgery: Yes (PACER-DEFIB ) Hx Abdominal Surgery: No Hx Cancer Surgery: No Hx Thoracic Surgery: No Hx Orthopedic: Yes (hip replacement) Hx Urinary Tract Surgery: No HX Other Surgery: Yes Past Medical/Surgical History: Diabetes, Heart Disease, Hypertension, Kidney Disease Family History Heart disease Social History Smoking Status: Former Smoker Hx Tobacco Use In Past Year?: No Hx Alcohol Use - Type & Amnt: No Hx Substance Use -Type & Amnt: No Review of Systems Constitutional: No chills, No fever, No malaise Skin: No change in color Eyes: No visual changes ENMT: No sore throat Respiratory: No cough, No short of breath Cardiovascular: No chest pain, No chest tightness, No edema, No intermittent claudication, No palpitations, No syncope Gastrointestinal: No abdominal pain, No nausea, No vomiting Genitourinary - Female: No dysuria, No hematuria Neurologic: No dizziness, No headache, No lethargy, No numbness Physical Exam Constitutional: General Apperance: well-nourished, well-developed Level of Distress: NAD, chronically ill Psychiatric: Mental Status: active & alert, normal mood, normal affect Orientation: oriented except where noted, to time, to place, to person Memory: recent memory normal, remote memory normal Head: normocephalic, atraumatic Eyes: EOM: EOMI ENMT: normal ENT inspection, hearing grossly normal Neck: supple, trachea midline Lungs: Respiratory effort: no dyspnea Auscultation: no rales/crackles, no rhonchi, decreased breath sounds Cardiovascular: Apical Impulse: not displaced Heart Auscultation: RRR, no rubs, no gallops Peripheral Pulses: Pulses: full and equal, in all extremities except if noted Bruits: none appreciated Carotid Pulse: normal on the left, normal on the right Brachial Pulses: normal on the left, normal on the right Radial Pulse: normal on the left, normal on the right Femoral Pulse: normal on the left, normal on the right, pertinent finding ( L thigh graft no thrill/bruit) Posterior Tibialis Pulse: pertinent finding (nonpalpable) Dorsalis Pedis Pulse: pertinent finding (nonpalpable) Abdomen: Inspection & Palpation: soft, non-distended, no tenderness, guarding & rebound Musculoskeletal: normal strength (5/5 throughout), normal tone Extremities: Upper Right: no cyanosis, no edema, no varicosities Upper Left: no cyanosis, no edema, no varicosities Lower Right: no cyanosis, no edema, no varicosities Lower Left: no cyanosis, no edema, no varicosities Neurologic: Cranial Nerves: grossly intact Sensation: grossly intact Assessment and Plan ASSESSMENT and PLAN: Thrombosed AV graft ESRD on HD Pt for permcath insertion later today. Procedure, risks, benefits, and alternatives discussed with pt, she expresses understanding and agreement. Did attempt to discuss with pt's son, Esa, by phone, but no answer.
--- NOTE | 2016-03-03 10:09 | Progress Note ---
Medicine Progress Note Date & Time of Visit: Mar 03, 2016 at 09:52. (Carole Christian PA-C) Subjective Patient seen and examined in presences of son. Feeling much better this morning. Able to sit up in bed without assistance. States she still feels tired and does not have much of an appetite. Denies any more fevers, chills, Denies URI symptoms, chest pain, SOB, nausea, vomiting, diarrhea, calf pain and edema. Planned for permcath placement today and dialysis. (Carole Christian PA-C) Objective Last 8 Hrs Date Time Temp Pulse Resp B/P Pulse Ox O2 Delivery O2 Flow Rate FiO2 03/03/16 07:59 37.1 64 18 127/67 97 Room Air 03/03/16 07:07 37.1 64 18 127/67 97 Room Air Physical Exam: General-Very pleasant WD/WN elderly 80 year old female lying in bed in NAD with son at bedside Eyes-PERRLA, EOMI, sclera normal ENT-mucosa moist, hearing grossly normal Neck-supple no JVD Lungs-trace crackles BL bases otherwise CTA BL, no accessory muscle use Heart-RRR, +systolic murmur Abdomen-normoactive, soft, NT Extremities-pulses intact, no edema, no calf pain, strength improved +5/5 in all extremities BL Neuro-A&Ox3, no focal deficits Laboratory Results: Last 24 Hours Test 03/02/16 13:25 03/03/16 06:25 03/03/16 07:16 Vitamin B12 Level 682 pg/mL White Blood Count 4.04 K/uL Red Blood Count 2.90 M/uL Hemoglobin 9.5 g/dL Hematocrit 30.3 % Mean Corpuscular Volume 104.5 fL Mean Corpuscular Hemoglobin 32.8 pg Mean Corpuscular Hemoglobin Concent 31.4 g/dl RDW Standard Deviation 65.6 fL RDW Coefficient of Variation 17.1 % Platelet Count 60 K/uL Mean Platelet Volume 9.5 fL Sodium Level 136 mmol/L Potassium Level 5.6 mmol/L Chloride Level 103 mmol/L Carbon Dioxide Level 21 mmol/L Anion Gap 12.0 mmol/L Blood Urea Nitrogen 52 mg/dl Creatinine 6.10 mg/dl Est Creatinine Clear Calc Drug Dose 6.2 ml/min Estimated GFR () 6.8 Estimated GFR (Non- 5.9 BUN/Creatinine Ratio 8.4 Random Glucose 75 mg/dl Calcium Level 8.4 mg/dl Magnesium Level 2.6 mg/dl Random Vancomycin Level 17.2 mcg/ml Bedside Glucose 78 mg/dl Date/Time Source Procedure Growth Status 03/02/16 13:25 Blood Blood Culture Pending Received 03/02/16 13:25 Blood Blood Culture Pending Received (Carole Christian, PAGold) Assessment & Plan GENERALIZED WEAKNESS -Admit to med/surg -symptoms have improved greatly since yesterday -Flu PCR pending -blood cultures pending -ESR, TSH, B12 WNL -Empirically treat with Vancomycin for now - pharmacy consulted for dosing --Awaiting PT/OT eval -CBC, PRP, Mg in AM MALFUNCTIONING DIALYSIS CATH -Dr. Jacobsen consulted -plan for permcath placement today LOW GRADE FEVER -afebrile now -Had sutures placed to fistula site recently,skin looks okay -CXR without consolidation -no leukocytosis -blood cultures pending -ESR WNL -empirically cover with vancomycin for now EPISODIC HYPOXIA -patient uses nocturnal oxygen, ? if patient was drowsy/sleeping when readings were acquired -was not hypoxic on RA when speaking with me -CXR: stable -continuous pulse ox ordered -may need 2 step prior to discharge -oxygen levels stable on RA while inpatient -incentive spirometry ordered THROMBOCYTOPENIA -platelet count 60 today, ? viral illness -no signs of active bleeding -hold Plavix -repeat in AM ESRD ON DIALYSIS -Has dialysis MWF -follows with Dr. Estrella -nephrology consulted placed for dialysis HYPERKALEMIA -5.6 -do for dialysis today -nephrology on board SYSTOLIC CHF -Last echo with EF of 40-45% -appears euvolemic -states she does not urinate but is on Lasix, will continue -is on dialysis nephrology consulted ANEMIA OF CHRONIC DISEASE -hg stable -monitor HTN -stable -continue BB, Hydralazine, Amlodipine, nitrate, Lasix, with hold parameters -monitor closely NOCTURNAL HYPOXIA -continue Supplemental oxygen -continuous pulse ox ordered, - has been stable during daytime on RA DM2 -diet controlled -consistent carb diet HYPOTHYROIDISM -TSH normal -continue Synthroid CAD -stable -continue, BB, Imdur, Statin -hold Plavix for thrombocytopenia HLD -continue Statin H/O CVA -continue statin -hold plavix for thrombocytopenia DVT PROPHYLAXIS: SCDs RE: thrombocytopenia CODE STATUS: FULL CODE DISPO: pending, social contact worker consult placed Patient seen in collaboration with Dr. Mosher Current Inpatient Medications: Current Inpatient Medications Medications (Trade) Dose Ordered Sig/Claudette Route Start Time Stop Time Status Last Admin Dose Admin Acetaminophen (Tylenol Tab) 650 mg Q4H PRN PO 03/02/16 12:30 04/01/16 12:29 Ondansetron HCl (Zofran Inj) 4 mg Q6H PRN IV 03/02/16 12:30 04/01/16 12:29 Vancomycin HCl (Consult) 1 ea UD PRN N/A 03/02/16 13:45 04/01/16 13:44 Amlodipine Besylate (Norvasc Tab) 2.5 mg DAILY PO 03/03/16 09:00 04/02/16 08:59 03/03/16 08:19 2.5 MG Atorvastatin Calcium (Lipitor Tab) 10 mg HS PO 03/02/16 21:00 04/01/16 20:59 03/02/16 20:56 10 MG Vitamin B Complex/ Vit C/Folic Acid (Nephrocaps) 1 cap QPM PO 03/02/16 21:00 04/01/16 20:59 03/02/16 20:56 1 CAP Carvedilol (Coreg Tab) 25 mg BID PO 03/02/16 21:00 04/01/16 20:59 03/03/16 08:19 25 MG Clopidogrel Bisulfate (plAVix TAB) 75 mg DAILY PO 03/03/16 09:00 04/02/16 08:59 Furosemide (Lasix Tab) 80 mg DAILY PO 03/03/16 09:00 04/02/16 08:59 03/03/16 08:18 80 MG Hydralazine HCl (Apresoline Tab) 25 mg TID PO 03/02/16 21:00 04/01/16 20:59 03/03/16 08:18 25 MG Acetaminophen/ Hydrocodone Bitart ([place]ren[place] 5/325 Tab) 1 tab Q4 PRN PO 03/02/16 16:00 03/16/16 15:59 Isosorbide Dinitrate (Isordil Tab) 20 mg TID@0700,1200,1700 PO 03/02/16 17:00 04/01/16 16:59 03/03/16 06:49 20 MG Levothyroxine Sodium (Synthroid Tab) 50 mcg DAILYBB PO 03/03/16 06:30 04/02/16 06:59 03/03/16 06:06 50 MCG Sevelamer HCl (Renagel Tab) 2,400 mg TIDM PO 03/02/16 17:00 04/01/16 17:59 03/02/16 17:15 2,400 MG Epoetin Tevin (Procrit Inj) 10,000 units TODAY@0800 IV. 03/03/16 08:00 03/03/16 18:00 (Carole Christian, JORGE) ATTENDING ADDENDUM care coordinated with DIONNE Christian please refer to her notes for full details, I agree with her notes patient seen and examined, records reviewed by myself as well on exam, patient seen sitting up in bed, conversing with visitors states she feels better today no cough, sputum, abdominal pain ,nausea, diarrhea, fever chills s/p permcath insertion: denies pain no other symptoms VS noted and reviewed orientedx 3 , not in distress, speaks in sentences with no effort nor accessory muscle use normal rate, regular rhythm, (+) grade 3/6murmur clear breath sounds bilaterally Permcath site: no swelling, hematoma non distended, soft, nontender no bipedal edema, erythema, warmth no neuro deficits WBC 4.4 Plt 60 ASSESSMENT/PLAN> WEAKNESS r/o Infection - ff up blood cultures - empiric Vanco - BP marginal, hold Hydralazine and Amlodipine for now monitor THROMBOCYTOPENIA - from consumption secondary to clotting fistula sites? - baseline 80s hold plavix monitor other diagnoses and plan of care as per DIONNE christian's notes Adolfo Mosher MD (Adolfo Mosher MD)
--- NOTE | 2016-03-03 10:41 | Nephrology Progress Note ---
Nephrology Progress Note Date of Service: Mar 03, 2016. Subjective This 80-year-old female with ESRD who presented to ED after significant bleeding from femoral graft that was previously sutured by Dr. Shields of [place] but then developed fatigue and weakness. Today patient is NPO for upcoming procedure to place permcath. Patient states that she feels more energized today but is not eager to have another catheter due to failed accesses in the past. denies any SOB, chest pain, nausea, vomiting, or cramping. Objective Date Time Temp Pulse Resp B/P Pulse Ox O2 Delivery O2 Flow Rate FiO2 03/03/16 08:00 Room Air 03/03/16 07:59 37.1 64 18 127/67 97 Room Air 03/03/16 07:07 37.1 64 18 127/67 97 Room Air 03/03/16 00:00 Nasal Cannula 2.0 03/02/16 22:48 37.4 81 18 131/67 98 Nasal Cannula 2.0 03/02/16 20:55 71 147/71 03/02/16 16:00 93 Nasal Cannula 2.0 03/02/16 14:46 93 Nasal Cannula 2.0 03/02/16 14:46 37.6 77 18 143/68 87 Room Air 03/02/16 12:55 75 16 140/64 94 Room Air 03/02/16 11:46 99 Nasal Cannula 4.0 Physical Exam: GENERAL: Awake, alert, oriented x3. EYES: No scleral icterus. ENT: Moist mucous membranes. NECK: Supple. PULMONARY: Clear to auscultation. CARDIAC: +SM, RRR ABDOMEN: Bowel sounds positive, soft, nontender, nondistended. EXTREMITIES: No clubbing, cyanosis or edema. +sutures and dressing from femoral graft c/d/i NEUROLOGICALLY: Just generalized weakness, otherwise nonfocal. Current Inpatient Medications Medications (Trade) Dose Ordered Sig/Claudette Route Start Time Stop Time Status Last Admin Dose Admin Acetaminophen (Tylenol Tab) 650 mg Q4H PRN PO 03/02/16 12:30 04/01/16 12:29 Ondansetron HCl (Zofran Inj) 4 mg Q6H PRN IV 03/02/16 12:30 04/01/16 12:29 Vancomycin HCl (Consult) 1 ea UD PRN N/A 03/02/16 13:45 04/01/16 13:44 Amlodipine Besylate (Norvasc Tab) 2.5 mg DAILY PO 03/03/16 09:00 04/02/16 08:59 03/03/16 08:19 2.5 MG Atorvastatin Calcium (Lipitor Tab) 10 mg HS PO 03/02/16 21:00 04/01/16 20:59 03/02/16 20:56 10 MG Vitamin B Complex/ Vit C/Folic Acid (Nephrocaps) 1 cap QPM PO 03/02/16 21:00 04/01/16 20:59 03/02/16 20:56 1 CAP Carvedilol (Coreg Tab) 25 mg BID PO 03/02/16 21:00 04/01/16 20:59 03/03/16 08:19 25 MG Furosemide (Lasix Tab) 80 mg DAILY PO 03/03/16 09:00 04/02/16 08:59 03/03/16 08:18 80 MG Hydralazine HCl (Apresoline Tab) 25 mg TID PO 03/02/16 21:00 04/01/16 20:59 03/03/16 08:18 25 MG Acetaminophen/ Hydrocodone Bitart (Rule 5/325 Tab) 1 tab Q4 PRN PO 03/02/16 16:00 03/16/16 15:59 Isosorbide Dinitrate (Isordil Tab) 20 mg TID@0700,1200,1700 PO 03/02/16 17:00 04/01/16 16:59 03/03/16 06:49 20 MG Levothyroxine Sodium (Synthroid Tab) 50 mcg DAILYBB PO 03/03/16 06:30 04/02/16 06:59 03/03/16 06:06 50 MCG Sevelamer HCl (Renagel Tab) 2,400 mg TIDM PO 03/02/16 17:00 04/01/16 17:59 03/02/16 17:15 2,400 MG Epoetin Tevin (Procrit Inj) 10,000 units TODAY@0800 IV. 03/03/16 08:00 03/03/16 18:00 Last 24 Hours Test 03/02/16 13:25 03/03/16 06:25 03/03/16 07:16 Vitamin B12 Level 682 pg/mL White Blood Count 4.04 K/uL Red Blood Count 2.90 M/uL Hemoglobin 9.5 g/dL Hematocrit 30.3 % Mean Corpuscular Volume 104.5 fL Mean Corpuscular Hemoglobin 32.8 pg Mean Corpuscular Hemoglobin Concent 31.4 g/dl RDW Standard Deviation 65.6 fL RDW Coefficient of Variation 17.1 % Platelet Count 60 K/uL Mean Platelet Volume 9.5 fL Sodium Level 136 mmol/L Potassium Level 5.6 mmol/L Chloride Level 103 mmol/L Carbon Dioxide Level 21 mmol/L Anion Gap 12.0 mmol/L Blood Urea Nitrogen 52 mg/dl Creatinine 6.10 mg/dl Est Creatinine Clear Calc Drug Dose 6.2 ml/min Estimated GFR () 6.8 Estimated GFR (Non- 5.9 BUN/Creatinine Ratio 8.4 Random Glucose 75 mg/dl Calcium Level 8.4 mg/dl Magnesium Level 2.6 mg/dl Random Vancomycin Level 17.2 mcg/ml Bedside Glucose 78 mg/dl Date/Time Source Procedure Growth Status 03/02/16 13:25 Blood Blood Culture Pending Received 03/02/16 13:25 Blood Blood Culture Pending Received Other Studies: 03/01/16 03/02/16 03/03/16 07:59 07:59 07:59 Intake Total 360 ml Balance 360 ml Assessment & Plan ESRD: with significant bleeding from left femoral graft placement and has clotted off. The patient is followed by Dr. Shields for her graft. Plan is for placement of Permcath today and dialysis immediately following and then outpt declotting of graft next week by Alyson. Potassium 5.6. will continue to follow M/W/F dialysis schedule or as clinical condition dictates. Anemia of renal failure. Hgb is 9.5 and will administer procrit today with dialysis and prn to keep hgb between 10-12. Chronic thrombocytopenia. The patient does have an element of chronic thrombocytopenia of unclear etiology, however, chronic and stable. We will monitor levels and defer to primary hospitalist for further evaluation if needed. This patient was seen and treated with direct collaboration with Dr. Estrella. Thank you for the opportunity to participate in this patient's care. Appreciate the Consult. ATTENDING NOTE: I performed a history and physical examination of the patient, including specifically on history- pt feels better and has lots of family visiting, on physical exam-cta, and my impression and plan are ESRD-had line placed today but attempted dialysis and not working. trying activase to see if successful. may need new line in groin-will be declotted next week by alyson. I have discussed the patient's management with Sultana Alvarado PA-C, Please refer to above note for the documented findings and plan of care. Lety Oncalejandra DO
[2016-03-03] MEDS ORDERED: CEFAZOLIN SOD 1000MG/55 ML D5W IV ONE (11:01)
[2016-03-03] MEDS ORDERED: MIDAZOLAM HCL 1 MG/ML 2ML VIAL ONE (11:03)
[2016-03-03] MEDS ORDERED: FENTANYL CITRATE INJ 50 MCG/1 ML 2 ML VIAL ONE (11:03)
[2016-03-03] MEDS ORDERED: HEPARIN SOD (PORCINE) 5000 UNIT/ML 1 ML VIAL ONE (11:03)
[2016-03-03] MEDS ORDERED: FENTANYL CITRATE INJ 50 MCG/1 ML 2 ML VIAL IV ONE (11:47)
[2016-03-03] MEDS ORDERED: HEPARIN SOD (PORCINE) 5000 UNIT/ML 1 ML VIAL IV ONE (11:47)
[2016-03-03] MEDS ORDERED: LIDOCAINE HCL 1% 20 ML VIAL INFIL ONE (11:47)
[2016-03-03] MEDS ORDERED: MIDAZOLAM HCL 1 MG/ML 2ML VIAL IV ONE (11:47)
--- NOTE | 2016-03-03 12:09 | [facility] Post Operative Brief Note ---
Immediate Operative Summary Operative Date Mar 03, 2016. Pre-Operative Diagnosis Thrombosed AV graft ESRD on HD Post-Operative Diagnosis Same Procedure(s) Performed Insertion of Perm Catheter, Right internal Jugular Approach Ultrasound Localization of RIght INternal Jugular Vein Flouroscopy for Postioning Modererate Conscious Sedation: [id number]) Surgeon Delmar Brick Burner Surgeon(s) None Estimated Blood Loss 50 Findings tip in distal SVC Specimens None Anesthesia Local with moderate conscious sedation Complication(s) None Disposition
--- NOTE | 2016-03-03 12:17 | Procedure Note ---
Post-Moderate Sedation Plan General Date of Moderate Sedation Mar 03, 2016. Vital Signs: Vital Signs Past 12 Hours Date Time Temp Pulse Resp B/P Pulse Ox O2 Delivery O2 Flow Rate FiO2 03/03/16 08:00 Room Air 03/03/16 07:59 37.1 64 18 127/67 97 Room Air 03/03/16 07:07 37.1 64 18 127/67 97 Room Air Review - Discharge Plan Post Moderate Sedation Plan: On clinical assessment, the patient appears to have tolerated the conscious sedation without complications. Patient is recovering as anticipated. Patient will continue to be monitored by nursing and may be discharged when conscious sedation discharge criteria are met.
--- NOTE | 2016-03-03 13:26 | DIAGNOSTIC IMAGING REPORT ---
DATE OF PROCEDURE: 03/03/2016 PREOPERATIVE DIAGNOSIS: End-stage renal disease, occluded left femoral graft. POSTOPERATIVE DIAGNOSIS: Same. PROCEDURES: Insertion of right internal jugular vein PermCath, ultrasound localization of right internal jugular vein and fluoroscopic imaging for positioning. Moderate conscious sedation. SURGEON: Dr. Jacobsen. ANESTHETIC: Local with moderate conscious sedation. PROCEDURE INDICATIONS: The patient is an 80-year-old female with a clotted left femoral access. She is in need of dialysis. We will try a right internal jugular vein PermCath. The right internal jugular vein was imaged and found to have an occlusion at this junction with the subclavian innominate, however there was a slight channel present. We are hoping to get a wire through that and dilate it up. If this could not be done, then a femoral approach would be used. She understood the risks, options and benefits and agreed to have this procedure. PROCEDURE IN DETAIL: The patient was taken to the angio suite and placed in supine position. After right side of the neck and chest wall were prepped and draped in a sterile manner, local anesthetic was administered. Ultrasound was used to locate the internal jugular vein. It was patent except the proximal portion which appeared to be nearly totally occluded with a small channel going through it. Under direct vision, the distal portion of the internal jugular vein was cannulated. The wire was passed centrally. We had to use an 0.035 Glidewire, which passed on into the inferior vena cava. At that point, a stab wound was made in the chest wall and 19 cm PermCath was inserted from the stab wound in the chest wall and brought out through the puncture site in the neck. We tried to dilate the channel with a small dilator. This dilator was able to be passed through; however, it was fairly difficult over the softer wire. Once dilator was in, we exchanged the wire to an 0.035 stiffened Glidewire. We then dilated the puncture site up to the 14.5 Croatian. The catheter was then inserted through the peel away sheath and the peel away sheath removed. The catheter tip was in the distal superior vena cava. I did not think she would have good runs, so we decided to switch it out to a 23 cm catheter. The stiffened Glidewire was then reinserted and again it was passed down into the inferior vena cava. The 19 cm PermCath was removed and the 20 cm straight PermCath was inserted over the wire and passed to the central position. It sat much better in the distal superior vena cava with a nice curve at the neck. The catheter was sutured to the chest wall. Both ports aspirated and flushed very easily. They were instilled with heparin. The puncture site was then closed with 4-0 subcuticular Vicryl suture. Bernardino was put in the wound prior to tying the suture. Pressure was applied. Adequate hemostasis was obtained. The patient left the angio suite in good condition and tolerated the procedure well.
[2016-03-03 15:03] LABS: INFLUENZA A PCR Neg for Influ A (NEG); INFLUENZA B PCR Neg for Influ B (NEG)
--- NOTE | 2016-03-03 16:00 | Pharmacy Progress Note ---
Pharmacy Antibiotic Prog Note Date of Service: Mar 03, 2016. Subjective: The patient received vancomycin 1250mg IV x 1 dose. The patient is currently on day #2 of vancomycin IV therapy. Objective: Height (Feet): 5 Height (Inches): 2.00 Weight (Kilograms): 62.000 Levels: Item Value Date Time Random Vancomycin Level 17.2 mcg/ml 03/03/16 0625 Lab Results (24hrs): Laboratory Tests Test 03/03/16 06:25 BUN/Creatinine Ratio 8.4 Blood Urea Nitrogen 52 mg/dl Creatinine 6.10 mg/dl White Blood Count 4.04 K/uL Micro Results: Item Value Date Time Blood Culture Received 03/02/16 1325 Blood Pending Blood Culture Received 03/02/16 1325 Blood Pending Assessment & Plan: ASSESSMENT: * Patient is an 80 year-old female admitted with a fever/hypoxia. * Patient had a recent hospital stay and has CKD/receives HD on MWF. * Patient has clinically been doing much better. Will see if patient will continue on vancomycin through the weekend by inquiring with the provider tomorrow. * Pharmacy was consulted to dose the vancomycin IV therapy. * BCx2 and flu PCR are pending in the computer. PLAN: VANCOMYCIN: * Random level before HD today came back at 17.2mcg/ml. * Will make dose 500mg x 1 dose this evening. * Will get a random level tomorrow morning. Pharmacy will continue to follow and will adjust dose/frequency as necessary. Thank you
[2016-03-03] MEDS ORDERED: ALTEPLASE, RECOMBINANT 1 MG/ML 2 ML VIAL IV ONE (19:30)
[2016-03-03] MEDS ORDERED: NURSING VERBAL MED ORDER ONE ×2 (19:30→19:40)
[2016-03-03] MEDS: ALTEPLASE, RECOMBINANT 1 MG/ML 2 ML VIAL IV SCH (20:03)
[2016-03-03] MEDS ORDERED: VANCOMYCIN INJ 500 MG in SODIUM CHLORIDE 0.9% 250ML 250 ML IV ONE (21:00)
[2016-03-03] MEDS ORDERED: SODIUM POLYST. SULF SUSP 15G/60ML PO ONE (21:15)
[2016-03-03] MEDS: ATORVASTATIN 10 MG TAB PO SCH (21:37)
[2016-03-03] MEDS: NEPHROCAPS PO SCH (21:37)
[2016-03-04] VITALS (19 sets, daily range): BP systolic 110–172; BP diastolic 18–80; PULSE 64–80; TEMP 36.3–36.9; O2SAT 90–98
[2016-03-04] MEDS ORDERED: LORAZEPAM 0.5 MG TAB PO ONE
[2016-03-04] MEDS: ISOSORBIDE DINITRATE 20 MG TAB PO SCH ×3 (06:06→17:00)
[2016-03-04] MEDS: LEVOTHYROXINE 50 MCG TAB PO SCH (06:06)
[2016-03-04] MEDS ORDERED: ALTEPLASE, RECOMBINANT 1 MG/ML 2 ML VIAL IV SCH (07:30)
[2016-03-04 07:36] LABS: HEMATOCRIT 25.5 % (37-47); MEAN CELL VOLUME 101.2 fL (80-100); MEAN CORPUSCULAR HEMOGLOBIN 32.1 pg (25-34); MEAN CORPUSCULAR HGB CONC 31.8 g/dl (32-36); RED BLOOD COUNT 2.52 M/uL (4.2-5.4); WHITE BLOOD COUNT 3.34 K/uL (4.8-10.8)
[2016-03-04 07:39] LABS: MEAN PLATELET VOLUME 10.9 fL (7.4-10.4); PLATELET COUNT 61 K/uL (130-400)
[2016-03-04] MEDS: SEVELAMER HYDROCH 800 MG TAB PO SCH ×3 (08:00→17:01)
[2016-03-04 08:12] LABS: BUN/CREATININE RATIO 10.5 (10-20); CALCIUM 7.8 mg/dl (8.5-10.1); MAGNESIUM 2.7 mg/dl (1.8-2.4)
[2016-03-04 08:13] LABS: CREATININE 7.3 mg/dl (0.60-1.20); POTASSIUM 4.7 mmol/L (3.5-5.1)
[2016-03-04] MEDS: FUROSEMIDE 80 MG TAB PO SCH (08:53)
[2016-03-04] MEDS: CARVEDILOL 25 MG TAB PO SCH ×2 (08:54→21:16)
[2016-03-04] MEDS ORDERED: EPOETIN ALFA 10,000 UNITS/ML VIAL IV. SCH (09:00)
--- NOTE | 2016-03-04 10:12 | Progress Note ---
Progress Note Right internal jugular permcath examined. Red port aspirates and flushes easily. Blue port slightly sluggish but does aspirate and flush. May have to run her at a lower flow rate. Ports packed with heparin flush.
--- NOTE | 2016-03-04 17:50 | Progress Note ---
Medicine Progress Note Date & Time of Visit: Mar 04, 2016 at 17:41. Subjective seen sitting up in bed just had dinner alert, in good spirits states she feels improved less weak [facility] no dyspnea, chest pain, abdominal pain, nausea, cough no other symptoms Objective Last 8 Hrs Date Time Temp Pulse Resp B/P Pulse Ox O2 Delivery O2 Flow Rate FiO2 03/04/16 15:45 Nasal Cannula 2.0 03/04/16 15:25 36.3 77 20 171/68 90 Room Air 03/04/16 12:30 69 150/72 03/04/16 12:15 69 147/65 03/04/16 12:00 73 123/65 03/04/16 11:45 71 122/57 03/04/16 11:35 74 152/75 03/04/16 11:28 36.8 75 143/69 03/04/16 11:05 74 152/75 Physical Exam: General- oriented x 3, not in distress, speaks in sentences with no effort Eyes- EOMI, anicteric ENT- oropharynx clear Neck- supple, no JVD, no adenopathy Lungs- clear to auscultation b/l Chest- [facility] site: mild surrounding edema and tenderness, no bleeding Heart- regular rhythm; grade 2-3/6 murmur Abdomen- normal bowel sounds, soft, nontender Extremities- no pretibial edema, no calf tenderness; peripheral pulses intact left arm: fistula- clotted left upper thigh: dressing in place, no hematoma, swelling Neuro- alert, oriented x 3; no gross focal deficits Skin- warm & dry Laboratory Results: Last 24 Hours Test 03/03/16 21:35 03/04/16 07:05 03/04/16 07:35 03/04/16 16:41 Bedside Glucose 85 mg/dl 80 mg/dl 149 mg/dl White Blood Count 3.34 K/uL Red Blood Count 2.52 M/uL Hemoglobin 8.1 g/dL Hematocrit 25.5 % Mean Corpuscular Volume 101.2 fL Mean Corpuscular Hemoglobin 32.1 pg Mean Corpuscular Hemoglobin Concent 31.8 g/dl RDW Standard Deviation 61.5 fL RDW Coefficient of Variation 16.7 % Platelet Count 61 K/uL Mean Platelet Volume 10.9 fL Sodium Level 140 mmol/L Potassium Level 4.7 mmol/L Chloride Level 106 mmol/L Carbon Dioxide Level 19 mmol/L Anion Gap 15.0 mmol/L Blood Urea Nitrogen 78 mg/dl Creatinine 7.30 mg/dl Est Creatinine Clear Calc Drug Dose 5.1 ml/min Estimated GFR () 5.5 Estimated GFR (Non- 4.7 BUN/Creatinine Ratio 10.5 Random Glucose 81 mg/dl Calcium Level 7.8 mg/dl Magnesium Level 2.7 mg/dl Assessment & Plan GENERALIZED WEAKNESS -Flu PCR negative -blood cultures negative so far -ESR, TSH, B12 WNL - d/c Vanco --Awaiting PT/OT eval LOW GRADE FEVER - resolved - no signs of infection -CXR without consolidation -no leukocytosis -blood cultures negative -ESR WNL MALFUNCTIONING DIALYSIS CATH - s/p Permcath placement EPISODIC HYPOXIA - patient uses nocturnal oxygen, ? if patient was drowsy/sleeping when readings were acquired - CXR: stable - may need 2 step prior to discharge - resolved THROMBOCYTOPENIA -platelet count 60 today, viral illness vs. consumption from clotting fistula? -no signs of active bleeding -hold Plavix monitor ANEMIA OF CHRONIC DISEASE Hg 8.1 re-check tomorrow ESRD ON DIALYSIS -Has dialysis MWF -follows with Dr. Estrella -nephrology consulted placed for dialysis SYSTOLIC CHF -Last echo with EF of 40-45% -appears euvolemic -states she does not urinate but is on Lasix, will continue -is on dialysis nephrology consulted HTN - BP marginal yesterday -continue BB, Hydralazine decreased, Amlodipine on hold, continue nitrate, Lasix , with hold parameters -monitor closely NOCTURNAL HYPOXIA -continue Supplemental oxygen DM2 -diet controlled -consistent carb diet HYPOTHYROIDISM -TSH normal -continue Synthroid CAD -stable -continue, BB, Imdur, Statin -hold Plavix for thrombocytopenia HLD -continue Statin H/O CVA -continue statin -hold plavix for thrombocytopenia DVT PROPHYLAXIS: SCDs RE: thrombocytopenia CODE STATUS: FULL CODE DISPOSITION pending Current Inpatient Medications: Current Inpatient Medications Medications (Trade) Dose Ordered Sig/Claudette Route Start Time Stop Time Status Last Admin Dose Admin Acetaminophen (Tylenol Tab) 650 mg Q4H PRN PO 03/02/16 12:30 04/01/16 12:29 Ondansetron HCl (Zofran Inj) 4 mg Q6H PRN IV 03/02/16 12:30 04/01/16 12:29 Vancomycin HCl (Consult) 1 ea UD PRN N/A 03/02/16 13:45 04/01/16 13:44 Atorvastatin Calcium (Lipitor Tab) 10 mg HS PO 03/02/16 21:00 04/01/16 20:59 03/03/16 21:37 10 MG Vitamin B Complex/ Vit C/Folic Acid (Nephrocaps) 1 cap QPM PO 03/02/16 21:00 04/01/16 20:59 03/03/16 21:37 1 CAP Carvedilol (Coreg Tab) 25 mg BID PO 03/02/16 21:00 04/01/16 20:59 03/04/16 08:54 25 MG Furosemide (Lasix Tab) 80 mg DAILY PO 03/03/16 09:00 04/02/16 08:59 03/04/16 08:53 80 MG Acetaminophen/ Hydrocodone Bitart ([place] 5/325 Tab) 1 tab Q4 PRN PO 03/02/16 16:00 03/16/16 15:59 Isosorbide Dinitrate (Isordil Tab) 20 mg TID@0700,1200,1700 PO 03/02/16 17:00 04/01/16 16:59 03/04/16 17:00 20 MG Levothyroxine Sodium (Synthroid Tab) 50 mcg DAILYBB PO 03/03/16 06:30 04/02/16 06:59 03/03/16 06:06 50 MCG Sevelamer HCl (Renagel Tab) 2,400 mg TIDM PO 03/02/16 17:00 04/01/16 17:59 03/04/16 17:01 2,400 MG Alteplase, Recombinant (Activase Cathflo) 4 mg TODAY@1940 IV 03/03/16 19:40 03/04/16 19:41 03/03/16 20:03 4 MG Epoetin Tevin (Procrit Inj) 10,000 units TODAY@0900 IV. 03/04/16 09:00 03/04/16 18:00
[2016-03-04] MEDS: ALTEPLASE, RECOMBINANT 1 MG/ML 2 ML VIAL IV SCH (18:43)
[2016-03-04] MEDS: ATORVASTATIN 10 MG TAB PO SCH (21:15)
[2016-03-04] MEDS: NEPHROCAPS PO SCH (21:15)
[2016-03-05] MEDS ORDERED: LORAZEPAM 0.5 MG TAB ONE (00:39)
[2016-03-05] MEDS: LEVOTHYROXINE 50 MCG TAB PO SCH (06:38)
[2016-03-05] MEDS: ISOSORBIDE DINITRATE 20 MG TAB PO SCH ×3 (06:39→17:09)
[2016-03-05 07:27] VITALS: BP 148/63; PULSE 80; TEMP 36.9; O2SAT 92
[2016-03-05 08:03] LABS: CREATININE 5.2 mg/dl (0.60-1.20)
[2016-03-05] MEDS: SEVELAMER HYDROCH 800 MG TAB PO SCH ×3 (08:13→17:10)
[2016-03-05] MEDS: CARVEDILOL 25 MG TAB PO SCH ×2 (09:19→21:43)
[2016-03-05] MEDS: FUROSEMIDE 80 MG TAB PO SCH (09:19)
[2016-03-05 15:40] VITALS: BP 150/69; PULSE 76; TEMP 36.7; O2SAT 96
--- NOTE | 2016-03-05 15:43 | PROGRESS NOTE ---
DATE: 03/05/2016 HISTORY OF PRESENT ILLNESS: The patient is an 80-year-old female with end-stage renal disease who presented to the Emergency Department after significant bleeding from the femoral graft that was previously sutured by Dr. Shields of [place]. She developed fatigue and weakness. She had attempted dialysis on Sunday with the newly placed catheter did not work even after alteplase. She was seen by Dr. Jacobsen yesterday. After some minor intervention with the catheter, it did work partially. She had dialysis for 3 hours yesterday. The maximum blood flow we got was about 200. At this time, she appears comfortable. Denies any nausea, vomiting, chest pain, shortness of breath. She does not have edema. PHYSICAL EXAMINATION: VITAL SIGNS: Blood pressure is 148/63, 92% on room air, temperature 36.9, pulse rate 80 per minute. HEENT: Mucous membrane is moist. NECK: Supple. No jugular venous distention. CHEST: Decreased breath sounds, poor inspiratory effort. CARDIOVASCULAR: Positive systolic murmur 2/6. Regular rate and rhythm. ABDOMEN: Soft, nontender. EXTREMITIES: Shows no edema. LABORATORY TESTS: From this morning shows hemoglobin of 8.1, hemoglobin has been dropping for the last few days. BUN this morning was for some reason pending. Creatinine was 5.2. ASSESSMENT AND PLAN: End-stage renal disease. She has significant bleeding from femoral graft. The patient is followed by Dr. Shields for the graft. We will plan to do another session of dialysis tomorrow through her tunneled catheter. If there is issue, Dr. Jacobsen has instructed to transfer the patient to [facility] so that she can be managed by Dr. Shields. Anemia of renal failure, hemoglobin is dropping and she will get Procrit with dialysis to keep the hemoglobin at 10+.
--- NOTE | 2016-03-05 18:13 | Progress Note ---
Medicine Progress Note Date & Time of Visit: Mar 05, 2016 at 18:06. Subjective states she feels better overall denies chest pain, dyspnea, dizziness ambulated in the halls today with no problems pain on the permcath site about the same in good spirits denies other symptoms Objective Last 8 Hrs Date Time Temp Pulse Resp B/P Pulse Ox O2 Delivery O2 Flow Rate FiO2 03/05/16 15:45 Room Air 03/05/16 15:40 36.7 76 16 150/69 96 Room Air Physical Exam: General- oriented x 3, not in distress, speaks in sentences with no effort Eyes- anicteric Neck- no JVD Lungs- no rales/wheeze, clear breath sounds bilaterally Chest- permcath site: mild surrounding edema and tenderness, no bleeding Heart- regular rhythm; grade 2-3/6 murmur, normal rate Abdomen- normal bowel sounds, soft, nontender Extremities- no pretibial edema, no calf tenderness; peripheral pulses intact left arm: fistula- clotted left upper thigh: dressing in place, no hematoma, swelling Neuro- alert, oriented x 3; no gross focal deficits Skin- warm & dry Laboratory Results: Last 24 Hours Test 03/04/16 19:54 03/05/16 06:57 03/05/16 07:37 03/05/16 11:32 Bedside Glucose 87 mg/dl 82 mg/dl 91 mg/dl Creatinine 5.20 mg/dl Est Creatinine Clear Calc Drug Dose 6.6 ml/min Estimated GFR () 8.3 Estimated GFR (Non- 7.1 Random Vancomycin Level 17.2 mcg/ml Test 03/05/16 16:30 Bedside Glucose 74 mg/dl Assessment & Plan GENERALIZED WEAKNESS -Flu PCR negative -blood cultures negative so far -ESR, TSH, B12 WNL - d/c Vanco --PT/OT eval LOW GRADE FEVER - resolved - no signs of infection -CXR without consolidation -no leukocytosis -blood cultures negative -ESR WNL - d/c Vanco MALFUNCTIONING DIALYSIS CATH - s/p Permcath placement EPISODIC HYPOXIA - patient uses nocturnal oxygen, ? if patient was drowsy/sleeping when readings were acquired - CXR: stable - may need 2 step prior to discharge - resolved THROMBOCYTOPENIA -platelet count 60, viral illness vs. consumption from clotting fistula? -no signs of active bleeding -hold Plavix monitor ANEMIA OF CHRONIC DISEASE Hg 8.1 monitor on Procrit ESRD ON DIALYSIS -Has dialysis MWF -follows with [facility] -nephrology consulted placed for dialysis SYSTOLIC CHF -Last echo with EF of 40-45% - compensated Lasix HTN - BP marginal yesterday -continue BB, Hydralazine decreased, Amlodipine on hold, continue nitrate, Lasix , with hold parameters improved NOCTURNAL HYPOXIA -continue Supplemental oxygen DM2 -diet controlled -consistent carb diet HYPOTHYROIDISM -TSH normal -continue Synthroid CAD -stable -continue, BB, Imdur, Statin -hold Plavix for thrombocytopenia HLD -continue Statin H/O CVA -continue statin -hold plavix for thrombocytopenia DVT PROPHYLAXIS: SCDs RE: thrombocytopenia CODE STATUS: FULL CODE DISPOSITION pending Current Inpatient Medications: Current Inpatient Medications Medications (Trade) Dose Ordered Sig/Claudette Route Start Time Stop Time Status Last Admin Dose Admin Acetaminophen (Tylenol Tab) 650 mg Q4H PRN PO 03/02/16 12:30 04/01/16 12:29 Ondansetron HCl (Zofran Inj) 4 mg Q6H PRN IV 03/02/16 12:30 04/01/16 12:29 Atorvastatin Calcium (Lipitor Tab) 10 mg HS PO 03/02/16 21:00 04/01/16 20:59 03/04/16 21:15 10 MG Vitamin B Complex/ Vit C/Folic Acid (Nephrocaps) 1 cap QPM PO 03/02/16 21:00 04/01/16 20:59 03/04/16 21:15 1 CAP Carvedilol (Coreg Tab) 25 mg BID PO 03/02/16 21:00 04/01/16 20:59 03/05/16 09:19 25 MG Furosemide (Lasix Tab) 80 mg DAILY PO 03/03/16 09:00 04/02/16 08:59 03/05/16 09:19 80 MG Acetaminophen/ Hydrocodone Bitart ([place] 5/325 Tab) 1 tab Q4 PRN PO 03/02/16 16:00 03/16/16 15:59 Isosorbide Dinitrate (Isordil Tab) 20 mg TID@0700,1200,1700 PO 03/02/16 17:00 04/01/16 16:59 03/05/16 17:09 20 MG Levothyroxine Sodium (Synthroid Tab) 50 mcg DAILYBB PO 03/03/16 06:30 04/02/16 06:59 03/05/16 06:38 50 MCG Sevelamer HCl (Renagel Tab) 2,400 mg TIDM PO 03/02/16 17:00 04/01/16 17:59 03/05/16 17:10 2,400 MG Hydralazine HCl (Apresoline Tab) 25 mg BID PO 03/04/16 21:00 04/03/16 20:59 03/05/16 09:19 25 MG
[2016-03-05] MEDS: NEPHROCAPS PO SCH (21:43)
[2016-03-05] MEDS: ATORVASTATIN 10 MG TAB PO SCH (21:43)
[2016-03-05 21:45] VITALS: BP 177/83; PULSE 76
[2016-03-06] VITALS (10 sets, daily range): BP systolic 139–171; BP diastolic 64–81; PULSE 76–84; TEMP 36.5–37; O2SAT 93–99
[2016-03-06] MEDS ORDERED: LORAZEPAM 0.5 MG TAB PO ONE (02:45)
[2016-03-06] MEDS: LEVOTHYROXINE 50 MCG TAB PO SCH (06:24)
[2016-03-06] MEDS: ISOSORBIDE DINITRATE 20 MG TAB PO SCH ×3 (06:24→17:01)
[2016-03-06 07:12] LABS: HEMATOCRIT 24.9 % (37-47); MEAN CELL VOLUME 98.8 fL (80-100); MEAN CORPUSCULAR HGB CONC 31.3 g/dl (32-36); MEAN PLATELET VOLUME 10.5 fL (7.4-10.4); PLATELET COUNT 75 K/uL (130-400); RED BLOOD COUNT 2.52 M/uL (4.2-5.4); WHITE BLOOD COUNT 3.79 K/uL (4.8-10.8)
[2016-03-06 07:46] LABS: BASO % 0.3 %; BASO ABS # 0.01 K/uL (0-0.2); COMPLETE YES; EOS % 5.3 %; IG% 0.3 %; LYMPH % 26.6 %; LYMPH ABS # 1.01 K/uL (1.2-3.4); MONO % 13.7 %; NEUT % 53.8 %; OVALOCYTES 1+
[2016-03-06 07:50] LABS: CREATININE 6.8 mg/dl (0.60-1.20)
[2016-03-06] MEDS: SEVELAMER HYDROCH 800 MG TAB PO SCH ×3 (07:56→17:02)
[2016-03-06] MEDS ORDERED: EPOETIN ALFA 10,000 UNITS/ML VIAL IV SCH (08:00)
[2016-03-06] MEDS: FUROSEMIDE 80 MG TAB PO SCH (15:22)
[2016-03-06] MEDS: CARVEDILOL 25 MG TAB PO SCH ×2 (15:22→21:10)
--- NOTE | 2016-03-06 15:57 | Dialysis Progress Note ---
Nephrology Dialysis Note Date of Service: Mar 06, 2016. Subjective 80 yo female with esrd who has a clotted femoral graft placed by Dr. Shields of [place] with recent procedure done on it last sunday secondary to bleeding by Dr. Shields. pt presented with fatigue and found to have clotted access. tunneled line was placed right subclavian on sunday, however poor blood flows. attempted activase without benefit. repositioned without relief. attempting dialysis now and low blood flow rates. Objective Date Time Temp Pulse Resp B/P Pulse Ox O2 Delivery O2 Flow Rate FiO2 03/06/16 14:36 36.9 81 20 165/77 93 03/06/16 07:45 Nasal Cannula 2.0 03/06/16 07:06 36.6 76 20 139/64 99 Nasal Cannula 2.0 03/06/16 00:23 36.9 76 18 157/69 94 2.0 03/06/16 00:00 Room Air Nasal Cannula 03/05/16 21:45 76 177/83 03/05/16 20:00 Room Air Nasal Cannula 03/05/16 20:00 Room Air Nasal Cannula Physical Exam: General-[id number] Eyes-no scleral icterus ENT-mmm Neck-supple Lungs-basilar rales Heart-rrr Abdomen-bs+ s/nt/nd Extremities-tender legs, no edema Neuro-nonfocal Current Inpatient Medications Medications (Trade) Dose Ordered Sig/Claudette Route Start Time Stop Time Status Last Admin Dose Admin Acetaminophen (Tylenol Tab) 650 mg Q4H PRN PO 03/02/16 12:30 04/01/16 12:29 Ondansetron HCl (Zofran Inj) 4 mg Q6H PRN IV 03/02/16 12:30 04/01/16 12:29 Atorvastatin Calcium (Lipitor Tab) 10 mg HS PO 03/02/16 21:00 04/01/16 20:59 03/05/16 21:43 10 MG Vitamin B Complex/ Vit C/Folic Acid (Nephrocaps) 1 cap QPM PO 03/02/16 21:00 04/01/16 20:59 03/05/16 21:43 1 CAP Carvedilol (Coreg Tab) 25 mg BID PO 03/02/16 21:00 04/01/16 20:59 03/05/16 21:43 25 MG Furosemide (Lasix Tab) 80 mg DAILY PO 03/03/16 09:00 04/02/16 08:59 03/05/16 09:19 80 MG Acetaminophen/ Hydrocodone Bitart ([place] 5/325 Tab) 1 tab Q4 PRN PO 03/02/16 16:00 03/16/16 15:59 Isosorbide Dinitrate (Isordil Tab) 20 mg TID@0700,1200,1700 PO 03/02/16 17:00 04/01/16 16:59 03/06/16 06:24 20 MG Levothyroxine Sodium (Synthroid Tab) 50 mcg DAILYBB PO 03/03/16 06:30 04/02/16 06:59 03/06/16 06:24 50 MCG Sevelamer HCl (Renagel Tab) 2,400 mg TIDM PO 03/02/16 17:00 04/01/16 17:59 03/06/16 12:15 2,400 MG Hydralazine HCl (Apresoline Tab) 25 mg BID PO 03/04/16 21:00 04/03/16 20:59 03/05/16 21:41 25 MG Epoetin Tevin (Procrit Inj) 10,000 units TODAY@0800 IV 03/06/16 08:00 03/06/16 18:00 Last 24 Hours Test 03/05/16 16:30 03/05/16 20:07 03/06/16 06:17 03/06/16 07:30 Bedside Glucose 74 mg/dl 92 mg/dl 82 mg/dl White Blood Count 3.79 K/uL Red Blood Count 2.52 M/uL Hemoglobin 7.8 g/dL Hematocrit 24.9 % Mean Corpuscular Volume 98.8 fL Mean Corpuscular Hemoglobin 31.0 pg Mean Corpuscular Hemoglobin Concent 31.3 g/dl Platelet Count 75 K/uL Mean Platelet Volume 10.5 fL Neutrophils (%) (Auto) 53.8 % Lymphocytes (%) (Auto) 26.6 % Monocytes (%) (Auto) 13.7 % Eosinophils (%) (Auto) 5.3 % Basophils (%) (Auto) 0.3 % Neutrophils # (Auto) 2.04 K/uL Lymphocytes # (Auto) 1.01 K/uL Monocytes # (Auto) 0.52 K/uL Eosinophils # (Auto) 0.20 K/uL Basophils # (Auto) 0.01 K/uL RDW Standard Deviation 58.8 fL RDW Coefficient of Variation 16.2 % Immature Granulocyte % (Auto) 0.3 % Immature Granulocyte # (Auto) 0.01 K/uL Ovalocytes 1+ Creatinine 6.80 mg/dl Est Creatinine Clear Calc Drug Dose 5.0 ml/min Estimated GFR () 6.0 Estimated GFR (Non- 5.2 Test 03/06/16 11:21 Bedside Glucose 99 mg/dl Assessment & Plan ESRD: seen on dialysis today. low blood flow rates of 125cc/hr which is not sufficient for dialysis and likely to clot. stopped dialysis early today. had about 30 minutes at the low blood flows. given kayexalate to help control potassium levels. Anemia of renal failure-hg under 8, attempting to give procrit on dialysis. was unable to do so. will switch to sq to try to help raise the blood counts. STEVE-will continue patients phosphate binders. \ With overall poor dialysis flows with current tunneled line, recommend transfer to [place] for Dr. Shields to attempt declot of femoral graft vs reposition of tunneled line. spoke to primary hospitalist who is in agreement.
[2016-03-06] MEDS ORDERED: EPOETIN ALFA 10,000 UNITS/ML VIAL SQ SCH (16:00)
--- NOTE | 2016-03-06 16:34 | Discharge Summary ---
Discharge Summary Admission Date: Mar 02, 2016 at 12:36 Discharge Date: Mar 06, 2016 Discharge Disposition: Acute care facility Principal Diagnosis: MALFUNCTIONING DIALYSIS FEMORAL FISTULA Secondary Diagnoses/Problems: PLEASE REFER TO HOSPITAL COURSE BELOW. Procedures: 03/03/16: Insertion of Perm Catheter, Right internal Jugular Approach Ultrasound Localization of RIght INternal Jugular Vein Flouroscopy for Positioning Modererate Conscious Sedation: ([id number]) Consultations: [facility] Molder Dr. Estrella, Vascular Surgeon Dr. Jacobsen Pending Studies/Follow-Up: Please refer to hospital course below. Medication Reconciliation New Medications: Hydralazine Hcl (Apresoline) 25 Mg Tab 25 MG PO BID for 10 Days, #20 TAB Continued Medications: Atorvastatin (Lipitor) 10 Mg Tab 10 MG PO HS, TAB B-Complex W/ C & Folic Acid ([place] Caps) 1 Cap Cap 1 CAP PO QPM, #30 Carvedilol (Carvedilol) 25 Mg Tab 25 MG PO BID, #60 Ergocalciferol (Vitamin D) 50,000 Interunit Cap 58662 UNITS PO WK, #1 Furosemide (Furosemide) 80 Mg Tab 80 MG PO DAILY, #30 Hydrocodone/Acetaminophen 5MG/325MG ([place] 5MG/325MG) Tab 1 TAB PO Q4 PRN for Pain, #90 Isosorbide Dinitrate (Isordil) 20 Mg Tab 20 MG PO TID Levothyroxine Sodium (Levothyroxine Sodium) 50 Mcg Tab 50 MCG PO DAILY Lidocaine-Prilocaine (Lidocaine/Prilocaine) 1 Cre Cre 1 APPLN TOP, #30 Oxygen (Oxygen) Gas 2 LITERS NA HS Sevelamer Carbonate (Renvela) 800 Mg Tab 2400 MG PO TIDM 800 mg tablet. Take 3 tablets (2,400 mg) by mouth with every meal. Discontinued Medications: Amlodipine Besylate (Amlodipine Besylate) 5 Mg Tab 2.5 MG PO DAILY, TAB Clopidogrel (Plavix) 75 Mg Tab 75 MG PO DAILY, TAB Hydralazine Hcl (Apresoline) 25 Mg Tab 25 MG PO TID, #90 Admission Information HPI (per Admitting provider): Patient seen and examined. 80 year old female with PMHx of ESRD on dialysis, HTN , nocturnal hypoxia, CAD, DM2, H/o CVA and other problems listed below presents to the ED complaining of generalized weakness x 1 day. Family reports yesterday the patient came to the ED because she was bleeding from her fistula site, bleeding was stopped and , she was discharged from this ED after speaking to her vascular surgeon at [facility] who requested she go to [place]. In [place] 5 sutures were placed around the fistula site and patient was discharged home. Patient lives alone and apparently this morning she felt too weak to get a glass of water and she called her family. Family states that she was too weak to walk without assistance, and hadn't ate anything this morning. They called her dialysis center who thought the patient may have lost blood yesterday and referred her to the ED for workup. The patient reports she is always cold and her family said she "felt warm"" this morning. She denies URI symptoms, chest pain, SOB, nausea, vomiting, diarrhea, calf pain and edema. She does not urinate at baseline. In the ED patient is hypoxic on RA, she has low grade fever 100.04, CXR is negative, CBC, PRP are baseline. She walked the halls with nursing staff and apparently did well. She ate breakfast. Family does not feel she is safe to go home and are requesting admission. Physical Exam (per Admitting): General Appearance: no apparent distress, + pertinent finding (Frail elderly 80 year old female lying in bed in NAD with family at bedside ) Head: normocephalic, atraumatic Eyes: PERRL, EOMI, sclerae normal ENT: normal ENT inspection, pharynx normal Neck: supple, no JVD, trachea midline Respiratory/Chest: chest non-tender, lungs clear, normal breath sounds, no respiratory distress, no accessory muscle use Cardiovascular: regular rate, rhythm, no edema, no gallop, no JVD, normal peripheral pulses, + systolic murmur Abdomen/GI: normal bowel sounds, non tender, soft Back: normal inspection, no muscle spasm Extremities/Musculoskelatal: no calf tenderness, normal capillary refill, no pedal edema, + pertinent finding (strength 4/5, equal in all extremities ) Neurologic/Psych: alert, oriented x 3, + pertinent finding (no focal deficits ) Skin: normal color, warm/dry, no rash, + pertinent finding (frail skin, area on right groin surrounding fistula without signs of infection dressing to fistula site I/C/D ) Lymphatic: no adenopathy Hospital Course MALFUNCTIONING DIALYSIS FEMORAL GRAFT - clotted femoral graft placed by Dr. Shields of [facility] with recent procedure done on it last Sunday secondary to bleeding by Dr. Shields. - patient presented to [facility] last 03/02/16 for fatigue - s/p Permcath placement Right IJ, 03/03/16 had HD 03/04/16 - at HD today 03/06/16, permcath had poor blood flow activase and repositioning attempted without success K 3.9 - discussed with Dr. Estrella- [facility] patient prefers to be transferred to [facility] - discussed with Dr. Jones- associate of Dr. Shields who kindly accepted the patient as consult plan for possible temporary dialysis cath placement tonight- keep patient NPO - discussed case with Dr. Chavez- Hospitalist- who kindly accepted the patient as well GENERALIZED WEAKNESS, Resolved -Flu PCR negative -blood cultures negative -ESR, TSH, B12 WNL - Vancomycin discontinued LOW GRADE FEVER, Resolved - no signs of infection -CXR without consolidation -no leukocytosis -blood cultures negative -ESR WNL EPISODIC HYPOXIA, Resolved - patient uses nocturnal oxygen, ? if patient was drowsy/sleeping when readings were acquired - CXR: stable THROMBOCYTOPENIA - viral illness vs. consumption from clotting fistula? - Plt 61--> 75 -no signs of active bleeding -hold Plavix monitor ANEMIA OF CHRONIC DISEASE Hg 7.8 today on Procrit monitor ESRD ON DIALYSIS -Has dialysis MWF -follows with Dr. Estrella -nephrology consulted placed for dialysis - last dialysis 03/04/16 SYSTOLIC CHF -Last echo with EF of 40-45% - no signs of overt volume overload on Lasix HYPERTENSION - BP marginal initially - Hydralazine decreased to BID from TID Amlodipine held - continued BB and Imdur - monitor BP NOCTURNAL HYPOXIA -continue Supplemental oxygen DM2 -diet controlled -consistent carb diet HYPOTHYROIDISM -TSH normal -continue Synthroid CAD -stable -continue, BB, Imdur, Statin -hold Plavix for thrombocytopenia HLD -continue Statin H/O CVA -continue statin -hold plavix for thrombocytopenia DVT PROPHYLAXIS: SCDs RE: thrombocytopenia CODE STATUS: FULL CODE Total time spent on discharge = 75 minutes This includes examination of the patient, discharge planning, medication reconciliation, and communication with other providers. Discharge Instructions Discharge Instructions Admission Reason for Admission: Generalized Weakness,Hypoxia Discharge Discharge Diagnosis / Problem: MALFUNCTIONING FEMORAL FISTULA Discharge Goals Goal(s): Diagnostic testing, Therapeutic intervention Activity Recommendations Activity Level: Assistance Required Therapies: Physical Therapy, Occupational Therapy FALL, ASPIRATION PRECAUTIONS . Additional Information Patient informed of condition: Yes Advance Directives: No (UNKNOWN) DNR: No (PATIENT IS FULL CODE) Level of Care: Other ([facility]) Communicable Disease: No Prognosis: Stable Oxygen at (LPM): AT HS Giraldo Catheter: No Instructions / Follow-Up Instructions / Follow-Up PLEASE KEEP NPO IN ANTICIPATION OF POSSIBLE DIALYSIS CATH PLACEMENT TONIGHT 03/06. MONITOR HG AND PLT (RE: ANEMIA, THROMBOCYTOPENIA). PLEASE REFER TO ACCOMPANYING DISCHARGE SUMMARY FOR FURTHER DETAILS. Current Hospital Diet Patient's current hospital diet: AHA Diet (Heart Healthy), Diabetes Type 2 Diet , Renal Diet Discharge Diet Recommended Diet: N/A (NPO ) Procedures Procedures Performed: : Insertion of Perm Catheter, Right internal Jugular Approach Ultrasound Localization of RIght INternal Jugular Vein Flouroscopy for Postioning Modererate Conscious Sedation: ([id number]) Pending Studies Studies pending at discharge: yes List of pending studies: PLEASE REFER TO ACCOMPANYING DISCHARGE SUMMARY. Physician Orders On Transfer Special Precautions: PLEASE KEEP NPO IN ANTICIPATION OF POSSIBLE DIALYSIS CATH PLACEMENT TONIGHT 03/06. MONITOR HG AND PLT (RE: ANEMIA, THROMBOCYTOPENIA). PLEASE REFER TO ACCOMPANYING DISCHARGE SUMMARY FOR FURTHER DETAILS. Medical Emergencies . Who to Call and When: Medical Emergencies: If at any time you feel your situation is an emergency, please call 911 immediately. . Non-Emergent Contact Non-Emergency issues call your: Primary Care Provider . Past History Medical & Surgical History: (1) Pacemaker (2) Ischemic cardiomyopathy (3) HTN (hypertension) (4) ESRD (end stage renal disease) on dialysis (5) CHF (congestive heart failure), NYHA class II (6) DM2 (diabetes mellitus, type 2) (7) WANDA (obstructive sleep apnea) (8) LBBB (left bundle branch block) (9) Hypothyroidism (10) HLD (hyperlipidemia) (11) CAD (coronary artery disease) (12) History of TIA/CVA (13) History of atrial fibrillation (14) Hypoxia (15) Head injury due to trauma (16) Generalized weakness (17) S/P cholecystectomy (18) S/P T&A (status post tonsillectomy and adenoidectomy) (19) S/p removal of pelvic structures (20) Reduction of SBO . "Provider Documentation" section prepared by Adolfo Mosher. Core Measure Problem Core Measures: None
--- NOTE | 2016-03-06 17:06 | Progress Note ---
Medicine Progress Note Date & Time of Visit: Mar 06, 2016 at 16:52. Subjective patient states she feels fine overall denies chest pain, dyspnea, palpitations, dizziness, headache, nausea, abdominal pain mild-mod tenderness on the permcath site no other symptoms Objective Last 8 Hrs Date Time Temp Pulse Resp B/P Pulse Ox O2 Delivery O2 Flow Rate FiO2 03/06/16 14:36 36.9 81 20 165/77 93 Physical Exam: General- oriented x 3, not in distress, speaks in sentences with no effort Eyes- anicteric Neck- no JVD Lungs- clear breath sounds bilaterally, no crackles/wheeze Chest- permcath site: mild surrounding edema and tenderness, no bleeding Heart- regular rhythm; grade 2-3/6 murmur, normal rate Abdomen- normal bowel sounds, soft, nontender Extremities- no pretibial edema, no calf tenderness; peripheral pulses intact left arm: fistula- clotted left upper thigh: dressing in place, no hematoma, swelling Neuro- alert, oriented x 3; no gross focal deficits Skin- warm & dry Laboratory Results: Last 24 Hours Test 03/05/16 20:07 03/06/16 06:17 03/06/16 07:30 03/06/16 11:21 Bedside Glucose 92 mg/dl 82 mg/dl 99 mg/dl White Blood Count 3.79 K/uL Red Blood Count 2.52 M/uL Hemoglobin 7.8 g/dL Hematocrit 24.9 % Mean Corpuscular Volume 98.8 fL Mean Corpuscular Hemoglobin 31.0 pg Mean Corpuscular Hemoglobin Concent 31.3 g/dl Platelet Count 75 K/uL Mean Platelet Volume 10.5 fL Neutrophils (%) (Auto) 53.8 % Lymphocytes (%) (Auto) 26.6 % Monocytes (%) (Auto) 13.7 % Eosinophils (%) (Auto) 5.3 % Basophils (%) (Auto) 0.3 % Neutrophils # (Auto) 2.04 K/uL Lymphocytes # (Auto) 1.01 K/uL Monocytes # (Auto) 0.52 K/uL Eosinophils # (Auto) 0.20 K/uL Basophils # (Auto) 0.01 K/uL RDW Standard Deviation 58.8 fL RDW Coefficient of Variation 16.2 % Immature Granulocyte % (Auto) 0.3 % Immature Granulocyte # (Auto) 0.01 K/uL Ovalocytes 1+ Creatinine 6.80 mg/dl Est Creatinine Clear Calc Drug Dose 5.0 ml/min Estimated GFR () 6.0 Estimated GFR (Non- 5.2 Assessment & Plan 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 Estrella patient prefers to be transferred to [facility] awaiting call back from [facility] transfer service GENERALIZED WEAKNESS -Flu PCR negative -blood cultures negative so far -ESR, TSH, B12 WNL - d/c Vanco LOW GRADE FEVER - resolved - no signs of infection -CXR without consolidation -no leukocytosis -blood cultures negative -ESR WNL - d/c Vanco EPISODIC HYPOXIA - patient uses nocturnal oxygen, ? if patient was drowsy/sleeping when readings were acquired - CXR: stable - resolved THROMBOCYTOPENIA - viral illness vs. consumption from clotting fistula? - Plt 61--> 75 -no signs of active bleeding -hold Plavix monitor ANEMIA OF CHRONIC DISEASE Hg 7.8 today monitor on Procrit ESRD ON DIALYSIS -Has dialysis MWF -follows with Dr. Estrella -nephrology consulted placed for dialysis - last dialysis 03/04/16 SYSTOLIC CHF -Last echo with EF of 40-45% - compensated Lasix HTN - BP marginal initially - continue BB, Hydralazine decreased, Amlodipine on hold, continue nitrate, Lasix, with hold parameters improved NOCTURNAL HYPOXIA -continue Supplemental oxygen DM2 -diet controlled -consistent carb diet HYPOTHYROIDISM -TSH normal -continue Synthroid CAD -stable -continue, BB, Imdur, Statin -hold Plavix for thrombocytopenia HLD -continue Statin H/O CVA -continue statin -hold plavix for thrombocytopenia DVT PROPHYLAXIS: SCDs RE: thrombocytopenia CODE STATUS: FULL CODE DISPOSITION pending Current Inpatient Medications: Current Inpatient Medications Medications (Trade) Dose Ordered Sig/Claudette Route Start Time Stop Time Status Last Admin Dose Admin Acetaminophen (Tylenol Tab) 650 mg Q4H PRN PO 03/02/16 12:30 04/01/16 12:29 Ondansetron HCl (Zofran Inj) 4 mg Q6H PRN IV 03/02/16 12:30 04/01/16 12:29 Atorvastatin Calcium (Lipitor Tab) 10 mg HS PO 03/02/16 21:00 04/01/16 20:59 1/22/17 21:43 10 MG Vitamin B Complex/ Vit C/Folic Acid (Nephrocaps) 1 cap QPM PO 03/02/16 21:00 04/01/16 20:59 03/05/16 21:43 1 CAP Carvedilol (Coreg Tab) 25 mg BID PO 03/02/16 21:00 04/01/16 20:59 03/05/16 21:43 25 MG Furosemide (Lasix Tab) 80 mg DAILY PO 03/03/16 09:00 04/02/16 08:59 03/05/16 09:19 80 MG Acetaminophen/ Hydrocodone Bitart ([place] 5/325 Tab) 1 tab Q4 PRN PO 03/02/16 16:00 03/16/16 15:59 Isosorbide Dinitrate (Isordil Tab) 20 mg TID@0700,1200,1700 PO 03/02/16 17:00 04/01/16 16:59 03/06/16 06:24 20 MG Levothyroxine Sodium (Synthroid Tab) 50 mcg DAILYBB PO 03/03/16 06:30 04/02/16 06:59 03/06/16 06:24 50 MCG Sevelamer HCl (Renagel Tab) 2,400 mg TIDM PO 03/02/16 17:00 04/01/16 17:59 03/06/16 12:15 2,400 MG Hydralazine HCl (Apresoline Tab) 25 mg BID PO 03/04/16 21:00 04/03/16 20:59 03/05/16 21:41 25 MG Epoetin Tevin (Procrit Inj) 10,000 units TODAY@1600 SQ 03/06/16 16:00 03/06/16 19:00
[2016-03-06] MEDS ORDERED: APR25 PO (18:08)
--- NOTE | 2016-03-06 18:13 | Discharge Instructions ---
Discharge Instructions Admission Reason for Admission: Generalized Weakness,Hypoxia Discharge Discharge Diagnosis / Problem: MALFUNCTIONING FEMORAL FISTULA Discharge Goals Goal(s): Diagnostic testing, Therapeutic intervention Activity Recommendations Activity Level: Assistance Required Therapies: Physical Therapy, Occupational Therapy FALL, ASPIRATION PRECAUTIONS . Additional Information Patient informed of condition: Yes Advance Directives: No (UNKNOWN) DNR: No (PATIENT IS FULL CODE) Level of Care: Other ([facility]) Communicable Disease: No Prognosis: Stable Oxygen at (LPM): AT HS Giraldo Catheter: No Instructions / Follow-Up Instructions / Follow-Up PLEASE KEEP NPO IN ANTICIPATION OF POSSIBLE DIALYSIS CATH PLACEMENT TONIGHT 03/06. MONITOR HG AND PLT (RE: ANEMIA, THROMBOCYTOPENIA). PLEASE REFER TO ACCOMPANYING DISCHARGE SUMMARY FOR FURTHER DETAILS. Current Hospital Diet Patient's current hospital diet: AHA Diet (Heart Healthy), Diabetes Type 2 Diet , Renal Diet Discharge Diet Recommended Diet: N/A (NPO ) Procedures Procedures Performed: : Insertion of Perm Catheter, Right internal Jugular Approach Ultrasound Localization of RIght INternal Jugular Vein Flouroscopy for Postioning Modererate Conscious Sedation: ([id number]) Pending Studies Studies pending at discharge: yes List of pending studies: PLEASE REFER TO ACCOMPANYING DISCHARGE SUMMARY. Physician Orders On Transfer Special Precautions: PLEASE KEEP NPO IN ANTICIPATION OF POSSIBLE DIALYSIS CATH PLACEMENT TONIGHT 03/06. MONITOR HG AND PLT (RE: ANEMIA, THROMBOCYTOPENIA). PLEASE REFER TO ACCOMPANYING DISCHARGE SUMMARY FOR FURTHER DETAILS. Medical Emergencies . Who to Call and When: Medical Emergencies: If at any time you feel your situation is an emergency, please call 911 immediately. . Non-Emergent Contact Non-Emergency issues call your: Primary Care Provider . Past History Medical & Surgical History: (1) Pacemaker (2) Ischemic cardiomyopathy (3) HTN (hypertension) (4) ESRD (end stage renal disease) on dialysis (5) CHF (congestive heart failure), NYHA class II (6) DM2 (diabetes mellitus, type 2) (7) WANDA (obstructive sleep apnea) (8) LBBB (left bundle branch block) (9) Hypothyroidism (10) HLD (hyperlipidemia) (11) CAD (coronary artery disease) (12) History of TIA/CVA (13) History of atrial fibrillation (14) Hypoxia (15) Head injury due to trauma (16) Generalized weakness (17) S/P cholecystectomy (18) S/P T&A (status post tonsillectomy and adenoidectomy) (19) S/p removal of pelvic structures (20) Reduction of SBO . "Provider Documentation" section prepared by Adolfo Mosher. Core Measure Problem Core Measures: None
[2016-03-06 18:35] LABS: BUN/CREATININE RATIO 8.3 (10-20); CREATININE 6.9 mg/dl (0.60-1.20); POTASSIUM 3.9 mmol/L (3.5-5.1)
[2016-03-06] MEDS: NEPHROCAPS PO SCH (21:09)
[2016-03-06] MEDS: ATORVASTATIN 10 MG TAB PO SCH (21:09)
[2016-08-01] MEDS ORDERED: CLOP1TAB15 PO (11:07)
[2016-08-01] MEDS ORDERED: SEVE800T7 PO (11:07)
[2016-08-01] MEDS ORDERED: IPRASOL4 INH (11:11)
[2016-08-01] MEDS ORDERED: OXGN (11:11)
[2016-08-01] MEDS ORDERED: NTRGSL/4 UT (11:12)
[2016-08-01] MEDS ORDERED: ERGO1CAP41 PO (11:13)
[2016-08-01] MEDS ORDERED: BENZ100C84 PO (11:13)
[2016-08-31] MEDS ORDERED: PANT40TA PO (11:04)
[2016-08-31] MEDS ORDERED: CZR25 PO (11:04)
== END 2016-03-07 00:05 | disposition short-term general hospital (02) | DRG 314 ==
LOC: ENRESERVDT → ENRESERVTM → C.EDB 07:28 → C.MS2W 12:36
PROVIDERS: ADMIT Internal Medicine; ATTEND Internal Medicine
PROC: 02HV33Z Insertion of Infusion Device into Superior Vena Cava, Percutaneous Approach (ICD-10-PCS; principal; 2016-03-03 14:00)
DX: T82.868A Thrombosis due to vascular prosthetic devices, implants and grafts, initial encounter (principal); N18.6 End stage renal disease; I12.0 Hypertensive chronic kidney disease with stage 5 chronic kidney disease or end stage renal disease; I50.20 Unspecified systolic (congestive) heart failure; E11.21 Type 2 diabetes mellitus with diabetic nephropathy; E78.5 Hyperlipidemia, unspecified; E03.9 Hypothyroidism, unspecified; I25.5 Ischemic cardiomyopathy; G47.33 Obstructive sleep apnea (adult) (pediatric); Z95.0 Presence of cardiac pacemaker; D69.6 Thrombocytopenia, unspecified; Z99.81 Dependence on supplemental oxygen; Y83.2 Surgical operation with anastomosis, bypass or graft as the cause of abnormal reaction of the patient, or of later complication, without mention of misadventure at the time of the procedure; Y92.009 Unspecified place in unspecified non-institutional (private) residence as the place of occurrence of the external cause; R09.02 Hypoxemia; D63.8 Anemia in other chronic diseases classified elsewhere; E87.5 Hyperkalemia; I48.2 Chronic atrial fibrillation; I25.10 Atherosclerotic heart disease of native coronary artery without angina pectoris; Z86.73 Personal history of transient ischemic attack (TIA), and cerebral infarction without residual deficits; T82.838A Hemorrhage due to vascular prosthetic devices, implants and grafts, initial encounter; Y83.1 Surgical operation with implant of artificial internal device as the cause of abnormal reaction of the patient, or of later complication, without mention of misadventure at the time of the procedure; E11.9 Type 2 diabetes mellitus without complications; I48.91 Unspecified atrial fibrillation; I50.9 Heart failure, unspecified; Z91.030 Bee allergy status; Z82.49 Family history of ischemic heart disease and other diseases of the circulatory system

== ENCOUNTER 2016-06-19 16:59 | Inpatient (IN) | payer OTHER, MEDICARE ==
[~2016-06-19] VITALS: Ht 157.5 cm; Wt 55.2 kg
[~2016-06-19 16:59] MED LIST changes: +ATOR10TA82 PO; -ATOR10TA88 PO
[2016-06-19] MEDS ORDERED: NITROGLYCERIN 0.4 MG SL PER TAB CHARGE SL STA (17:35)
[2016-06-19] MEDS ORDERED: LORAZEPAM 2 MG/ML 1 ML VIAL IV STA (17:35)
[2016-06-19] MEDS ORDERED: SEVE800T7 PO (17:37)
[2016-06-19] MEDS ORDERED: LISI-461 PO (17:37)
[2016-06-19] MEDS ORDERED: CRG625 PO (17:37)
[2016-06-19] MEDS ORDERED: CZR25 PO (17:37)
[2016-06-19] MEDS ORDERED: ISR10 PO (17:37)
[2016-06-19] MEDS ORDERED: HYDR-5688 PO (17:37)
--- NOTE | 2016-06-19 17:54 | DIAGNOSTIC IMAGING REPORT ---
CHEST ONE VIEW PORTABLE CLINICAL HISTORY: sob dyspnea COMPARISON STUDY: 03/02/2016 FINDINGS: Moderate stable primary megaly. Tortuous thoracic aorta. Left-sided axillary subclavian stent in position. Interval removal of the patient's cardiac pacemaker. Moderate prominence of pulmonary vasculature. Unchanging calcified granuloma right upper lobe. IMPRESSION: Mild congestive heart failure. Electronically signed by: Bharathi Anderson M.D. 06/19/2016 5:53 PM Dictated Date/Time: 06/19/2016 5:52 PM
--- NOTE | 2016-06-19 19:19 | EMERGENCY ROOM VISIT NOTE ---
History Report prepared by Dennis: Tory Yang Under the Supervision of: Dr. Uzair Ferreira M.D. First contact with patient: 17:30 Chief Complaint: FOOD BOLUS Stated Complaint: FOOD STUCK IN THROAT,VOMITING Nursing Triage Summary: see note. piece of ham stuck since 10 am while in dialysis History of Present Illness The patient is a 81 year old female who presents to the Emergency Room with complaints of persistent food bolus starting about 8 hours ago. She believes a piece of ham is stuck in her throat. She is unable to swallow saliva. She has a history of food bolus occurring in 2012 followed by an endoscopy. The patient denies any changes in her breathing. She wears 2 L oxygen at home. She has a history of dialysis, myocardial infarction, and diabetes. She had sepsis occurring about 3-4 months ago. The patient denies fevers, chills, chest pain, abdominal pain, or any other complaints. Source of History: patient Onset: about 8 hours ago Position: other (global) Quality: other (food bolus) Timing: other (persistent) Associated Symptoms: No abdominal pain, No chest pain, No chills, No fevers Review of Systems See HPI for pertinent positives & negatives. A total of 10 systems reviewed and were otherwise negative. Past Medical & Surgical Medical Problems: (1) CAD (coronary artery disease) (2) CHF (congestive heart failure), NYHA class II (3) DM2 (diabetes mellitus, type 2) (4) ESRD (end stage renal disease) on dialysis (5) Generalized weakness (6) Head injury due to trauma (7) History of atrial fibrillation (8) History of TIA/CVA (9) HLD (hyperlipidemia) (10) HTN (hypertension) (11) Hypothyroidism (12) Hypoxia (13) Ischemic cardiomyopathy (14) LBBB (left bundle branch block) (15) WANDA (obstructive sleep apnea) (16) Pacemaker Surgical Problems: (1) Reduction of SBO (2) S/P cholecystectomy (3) S/p removal of pelvic structures (4) S/P T&A (status post tonsillectomy and adenoidectomy) Family History Heart disease Social History Smoking Status: Never Smoker Alcohol Use: occasionally Drug Use: none Marital Status: Housing Status: lives alone Occupation Status: retired Current/Historical Medications Scheduled Amlodipine Besylate (Amlodipine Besylate), 2.5 MG PO DAILY Atorvastatin (Lipitor), 10 MG PO HS B-Complex W/ C & Folic Acid ([place] Caps), 1 CAP PO QPM Carvedilol (Carvedilol), 6.25 MG PO BID Furosemide (Furosemide), 80 MG PO DAILY Hydralazine Hcl (Apresoline), 25 MG PO TID Isosorbide Dinitrate (Isosorbide Dinitrate), 20 MG PO TID Levothyroxine Sodium (Levothyroxine Sodium), 50 MCG PO DAILY Lisinopril (Lisinopril), 10 MG PO BID Losartan Potassium (Losartan Potassium), 25 MG PO DAILY Sevelamer Carbonate (Renvela), 2,400 MG PO TIDM Scheduled PRN Hydrocodone/Acetaminophen 5MG/325MG ([place] 5MG/325MG), 1 TAB PO Q4H PRN for Pain Allergies Coded Allergies: BEE STING (Verified Allergy, Severe, ANAPHYLAXIS, 03/02/16) MELLO Inhibitors (Verified Allergy, Unknown, UNKNOWN, 03/02/16) Baclofen (Verified Adverse Reaction, Severe, PSYCHOSIS, 03/02/16) Physical Exam Vital Signs Date Time Temp Pulse Resp B/P Pulse Ox O2 Delivery O2 Flow Rate FiO2 06/19/16 19:42 94 19 140/77 98 06/19/16 18:59 94 19 140/77 98 Nasal Cannula 2.0 06/19/16 18:35 89 Room Air 06/19/16 18:34 95 Nasal Cannula 2.0 06/19/16 18:29 93 23 98 Nasal Cannula 2.0 06/19/16 18:29 87 Room Air 06/19/16 17:59 93 25 06/19/16 17:52 96 06/19/16 17:23 98 Room Air 06/19/16 17:09 89 18 141/69 95 Room Air Physical Exam GENERAL: Patient is in no acute distress. Spitting up her saliva. HEENT: No acute trauma, normocephalic atraumatic, mucous membranes moist, no nasal congestion, no scleral icterus. NECK: No stridor, no adenopathy, no meningismus, trachea is midline. LUNGS: Crackles at the bases especially at the right. No wheezing. HEART: 2/6 systolic murmur with a regular rate and rhythm. ABDOMEN: Soft, nontender, bowel sounds positive, no hernias, no peritonitis. EXTREMITIES: No cyanosis or edema, full range of motion of all the joints without pain or difficulty, no signs for acute trauma. NEUROLOGIC: Oriented x 3, no acute motor or sensory deficits, no focal weakness. SKIN: No rash, no jaundice, no diaphoresis. Medical Decision & Procedures ER Provider Diagnostic Interpretation: X-ray results as stated below per interpretation by me and the radiologist: CHEST ONE VIEW PORTABLE CLINICAL HISTORY: sob dyspnea COMPARISON STUDY: 03/02/2016 FINDINGS: Moderate stable primary megaly. Tortuous thoracic aorta. Left-sided axillary subclavian stent in position. Interval removal of the patient's cardiac pacemaker. Moderate prominence of pulmonary vasculature. Unchanging calcified granuloma right upper lobe. IMPRESSION: Mild congestive heart failure. Electronically signed by: Bharathi Andreson M.D. 06/19/2016 5:53 PM Dictated Date/Time: 06/19/2016 5:52 PM Laboratory Results Test 06/19/16 19:57 Medications Administered Medications (Trade) Dose Ordered Sig/Claudette Route Start Time Stop Time Status Last Admin Dose Admin Lorazepam (Ativan Inj) 0.5 mg NOW STAT IV 06/19/16 17:35 06/19/16 17:37 DC 06/19/16 17:45 0.5 MG Nitroglycerin (Nitrostat Tab) 0.4 mg 1735 STAT SL 06/19/16 17:35 06/19/16 17:37 DC 06/19/16 17:46 0.4 MG ED Course 1730: The patient was evaluated in room B07. A complete history and physical exam was performed. 1735: Nitrostat Tab 0.4 mg SL, Ativan Inj 0.5 mg IV 1817: I reevaluated the patient. She did not have any change in her symptoms. 1823: I discussed the patient's case with Dr. Wang, mental health tech with [facility]. He will evaluate the patient in the Emergency Room. 0: Upon reexamination the patient is resting comfortably. I discussed results and treatment plan with the patient. She verbalizes agreement and understanding. The patient will be evaluated for further management. Medical Decision Differential diagnosis includes but is not limited to esophageal food bolus, aspiration, esophageal stricture, esophageal narrowing. The patient presents with an esophageal food bolus. She has had a similar issue years ago. She is spitting out all of her saliva. There has been no difficulty breathing. Chest x-ray does show some chronic CHF, there was no pneumothorax or pneumonia. The patient did receive IV Ativan and some sublingual nitroglycerin, she did not have any relief and continued to have the obstruction. I spoke to Dr. Wang of GI. The patient is going to be taken to the endoscopy suite for extraction of the esophageal obstruction. Consults Time Called: 1819 Consulting Physician: Dr. Wang, mental health tech with [facility] Returned Call: 1823 I discussed the patient's case with Dr. Wang, mental health tech with [facility]. He will evaluate the patient in the Emergency Room. Impression Primary Impression: Esophageal obstruction due to food impaction Scribe Attestation The scribe's documentation has been prepared under my direction and personally reviewed by me in its entirety. I confirm that the note above accurately reflects all work, treatment, procedures, and medical decision making performed by me. Departure Information Dispostion Being Evaluated By Surgeon Gita Perry D.O. (PCP) Patient Instructions My [facility]
--- NOTE | 2016-06-19 19:29 | Endo History and Physical ---
History & Physical Date of Service: June 19, 2016. Chief Complaint: Ham stuck in throat Referring Physician: Ivana History of Present Illness 81 yo ill female with a pmhx of CKD on HD, CAD, Chronic O2 requiring oxygen who presented to the ER this irvin with c/o of food stuck in bottom of esophagus. She denies any chronic dysphagia, although she presented to the ER in 2012 and had an EGD for similar complaints, at that time, no food was identified. This morning around 930-10Am she was eating a ham sandwich, after one of the bites she stated she could not get it all the way down and it since has been stuck. C/O intense burning at the bottom of her esophagus but no pain. No dyspnea, no emesis. She is having a tough time controlling her secretions. Recent hx is significant for recent infected pacer with sepsis removed and not replaced in [place]. Past Medical & Surgical Medical Problems: (1) CAD (coronary artery disease) (2) CHF (congestive heart failure), NYHA class II (3) DM2 (diabetes mellitus, type 2) (4) ESRD (end stage renal disease) on dialysis (5) Generalized weakness (6) Head injury due to trauma (7) History of atrial fibrillation (8) History of TIA/CVA (9) HLD (hyperlipidemia) (10) HTN (hypertension) (11) Hypothyroidism (12) Hypoxia (13) Ischemic cardiomyopathy (14) LBBB (left bundle branch block) (15) WANDA (obstructive sleep apnea) (16) Pacemaker Surgical Problems: (1) Reduction of SBO (2) S/P cholecystectomy (3) S/p removal of pelvic structures (4) S/P T&A (status post tonsillectomy and adenoidectomy) Family History Heart disease Social History Smoking Status: Never Smoker Alcohol Use: occasionally Drug Use: none Marital Status: Housing Status: lives alone Occupation Status: retired Current/Historical Medications Scheduled Amlodipine Besylate (Amlodipine Besylate), 2.5 MG PO DAILY Atorvastatin (Lipitor), 10 MG PO HS B-Complex W/ C & Folic Acid ([place] Caps), 1 CAP PO QPM Carvedilol (Carvedilol), 6.25 MG PO BID Furosemide (Furosemide), 80 MG PO DAILY Hydralazine Hcl (Apresoline), 25 MG PO TID Isosorbide Dinitrate (Isosorbide Dinitrate), 20 MG PO TID Levothyroxine Sodium (Levothyroxine Sodium), 50 MCG PO DAILY Lisinopril (Lisinopril), 10 MG PO BID Losartan Potassium (Losartan Potassium), 25 MG PO DAILY Sevelamer Carbonate (Renvela), 2,400 MG PO TIDM Scheduled PRN Hydrocodone/Acetaminophen 5MG/325MG ([place] 5MG/325MG), 1 TAB PO Q4H PRN for Pain Allergies Coded Allergies: BEE STING (Verified Allergy, Severe, ANAPHYLAXIS, 03/02/16) MELLO Inhibitors (Verified Allergy, Unknown, UNKNOWN, 03/02/16) Baclofen (Verified Adverse Reaction, Severe, PSYCHOSIS, 03/02/16) Past Medical History Diabetes, Arthritis, Pacemaker, Reflux, High Cholesterol, Heart Disease, CHF, Hypertension, Implantable Defibrillator, Kidney Disease, [place] Past Surgical History Hx Cardiac Surgery: Yes (PACER-DEFIB ) Hx Internal Defibrillator: Yes Hx Pacemaker: Yes Hx Abdominal Surgery: No Hx Post-Op Nausea and Vomiting: No Hx Cancer Surgery: No Hx Thoracic Surgery: No Hx Orthopedic: Yes (hip replacement) Hx Urinary Tract Surgery: No Social History Smoking Status: Never Smoker Hx Substance Use: No Hx Alcohol Use: No Allergies Coded Allergies: BEE STING (Verified Allergy, Severe, ANAPHYLAXIS, 03/02/16) MELLO Inhibitors (Verified Allergy, Unknown, UNKNOWN, 03/02/16) Baclofen (Verified Adverse Reaction, Severe, PSYCHOSIS, 03/02/16) Current Medications Reported Home Medications Medications Dose Route/Sig Max Daily Dose Days Date Category [place] 5MG/325MG (Acetaminophen/Hydrocodone Bitart) Tab 1 Tab PO Q4H PRN 06/19/16 Reported Lisinopril 10 Mg Tab 10 Mg PO BID 06/19/16 Reported Renvela (Sevelamer Carbonate) 800 Mg Tab 2,400 Mg PO TIDM 90 06/19/16 Reported Losartan Potassium 25 Mg Tab 25 Mg PO DAILY 06/19/16 Reported Isosorbide Dinitrate 10 Mg Tab 20 Mg PO TID 06/19/16 Reported Carvedilol 6.25 Mg Tab 6.25 Mg PO BID 06/19/16 Reported [place] Caps (B-Complex W/ C & Folic Acid) 1 Cap Cap 1 Cap PO QPM 03/01/16 Reported Apresoline (Hydralazine Hcl) 25 Mg Tab 25 Mg PO TID 03/01/16 Reported Furosemide 80 Mg Tab 80 Mg PO DAILY 03/01/16 Reported Amlodipine Besylate 5 Mg Tab 2.5 Mg PO DAILY 10/17/15 Reported Lipitor (Atorvastatin Calcium) 10 Mg Tab 10 Mg PO HS 08/08/13 Reported Levothyroxine Sodium 50 Mcg Tab 50 Mcg PO DAILY 09/02/12 Reported Vital Signs Height (Feet): 5 Height (Inches): 2.00 Date Time Temp Pulse Resp B/P Pulse Ox O2 Delivery O2 Flow Rate FiO2 06/19/16 18:59 94 19 140/77 98 Nasal Cannula 2.0 06/19/16 18:35 89 Room Air 06/19/16 18:34 95 Nasal Cannula 2.0 06/19/16 18:29 93 23 98 Nasal Cannula 2.0 06/19/16 18:29 87 Room Air 06/19/16 17:59 93 25 06/19/16 17:52 96 06/19/16 17:23 98 Room Air 06/19/16 17:09 89 18 141/69 95 Room Air Physical Exam General Appearance: no apparent distress, + thin Respiratory/Chest: Auscultation: deminished air movement, decreased breath sounds Cardiovascular: Heart Auscultation: RRR, normal S1, normal S2 Abdomen: Bowel Sounds: normal Inspection & Palpation: soft, non-distended Assessment and Plan 81 yo with apparent esophageal food bolus presenting for evaluation. I have discussed with Ms. Noonan and family that she is very high anesthesia risk but should have bolus removed if possible. Will require anesthesia-not sure if anesthesia plan will be to use GETA vs non- intubated MAC. Plan for EGD Family and patient understood the risks including aspiration, perforation, as well as bleeding.
[2016-06-19 20:06] LABS: BASO % 0.2 %; BASO ABS # 0.01 K/uL (0-0.2); COMPLETE YES; EOS % 2.9 %; HEMATOCRIT 42.8 % (37-47); IG% 0.2 %; LYMPH % 7.4 %; LYMPH ABS # 0.49 K/uL (1.2-3.4); MEAN CORPUSCULAR HEMOGLOBIN 30.4 pg (25-34); MEAN CORPUSCULAR HGB CONC 30.4 g/dl (32-36); MEAN PLATELET VOLUME 10.8 fL (7.4-10.4); MONO % 7.9 %; NEUT % 81.4 %; PLATELET COUNT 179 K/uL (130-400); RED BLOOD COUNT 4.28 M/uL (4.2-5.4); WHITE BLOOD COUNT 6.61 K/uL (4.8-10.8)
[2016-06-19 20:13] LABS: BLOOD UREA NITROGEN 26 mg/dl (7-18); BUN/CREATININE RATIO 7.6 (10-20); CALCIUM 8.7 mg/dl (8.5-10.1); CARBON DIOXIDE 27 mmol/L (21-32); CHLORIDE 104 mmol/L (98-107); GLUCOSE 102 mg/dl (70-99); POTASSIUM 4.2 mmol/L (3.5-5.1); SODIUM 138 mmol/L (136-145)
[2016-06-19] MEDS ORDERED: FENTANYL CITRATE INJ 50 MCG/1 ML 2 ML VIAL ONE (20:44)
[2016-06-19] MEDS ORDERED: PROPOFOL IV EMULSION 10 MG/ML 20 ML VIAL IV ONE (21:19)
[2016-06-19] MEDS ORDERED: LIDOCAINE HCL 2% 2 ML VIAL (20MG/ML) ONE (21:19)
[2016-06-19] MEDS ORDERED: METOPROLOL TARTRATE 1 MG/ML VIAL ONE ×2 (21:19→21:59)
[2016-06-19] MEDS ORDERED: ONDANSETRON INJ 2 MG/ML 2 ML VIAL ONE (21:46)
--- NOTE | 2016-06-19 21:55 | GI REPORT ---
Procedure Date: 06/19/2016 7:23 PM Procedure: Upper GI endoscopy Indications: Foreign body in the esophagus Medicines: General Anesthesia Complications: No immediate complications. Estimated blood loss: None. Estimated Blood Loss: Estimated blood loss: none. Procedure: Pre-Anesthesia Assessment: - Pre-Anesthesia Assessment: - Prior to the procedure, a History and Physical was performed, and patient medications, allergies and sensitivities were reviewed. The patient's tolerance of previous anesthesia was reviewed. Please see [employer] for complete details. - The risks and benefits of the procedure and the sedation options and risks were discussed with the patient. All questions were answered and informed consent was obtained. - Patient identification and proposed procedure were verified prior to the procedure by the physician and the nurse. The procedure was verified in the pre-procedure area in the procedure room. After obtaining informed consent, the endoscope was passed carefully and meticuously under direct vision and only advanced when the lumen was clearly identified, C02 insuflation was utilized throughout the entirity of the procedure. Throughout the procedure, the patient's blood pressure, pulse, and oxygen saturations were monitored continuously. After obtaining informed consent, the endoscope was passed under direct vision. Throughout the procedure, the patient's blood pressure, pulse, and oxygen saturations were monitored continuously. The Scope was introduced through the mouth, and advanced to the duodenal bulb. The upper GI endoscopy was accomplished without difficulty. The patient tolerated the procedure well. Findings: Food was identified in the oropharynx immediately upon entry. Food was found in the upper third of the esophagus, in the middle third of the esophagus and in the lower third of the esophagus. Removal of food was accomplished with the villagomez net. LA Grade C (one or more mucosal breaks continuous between tops of 2 or more mucosal folds, less than 75% circumference) esophagitis with no bleeding was found. A severe stenosis measuring 9 mm (inner diameter) was found and was traversed only with the GIF XP 190 scope (outer diameter of 5.9 mm). Severe inflammation was found in the gastric antrum. Localized inflammation was found in the duodenal bulb. Esophagus and oraopharynx was completely cleared prior to cessation of the procedure. Impression: - Food in the upper third of the esophagus, in the middle third of the esophagus and in the lower third of the esophagus. Removal was successful. - LA Grade C reflux esophagitis. - Esophageal stenosis. - Gastritis. - Duodenitis. Recommendation: - Discharge patient to home (with escort). - Full liquid diet for 2 weeks. No meat, no vegetables. Only pureed and foods that can be eaten with a spoon. - Use Prilosec (omeprazole) 40 mg PO BID. - Repeat procedure in 3-4 weeks for dilation, full inspection to eliminate possibility of mass that was masked by food particles and inflammation. Shreyas Wang MD 06/19/2016 9:54:37 PM This report has been signed electronically. Note Initiated On: 06/19/2016 7:23 PM I attest to the content of the Intraoperative Record and orders documented therein, exceptions below
--- NOTE | 2016-06-19 22:10 | Progress Note ---
Progress Note Date of Service June 19, 2016. Progress Note Full EGD note in chart In brief Esophagus was full of food Case nearly 1 hr in duration with general anesthesia Food bolus entirely removed Benign appearing, but tight stricture Recs: -observation on tele -liquid only this irvin -BID PPI -Nutrition consult for full liquid diet teaching -Repeat EGD in 3-4 weeks
[2016-06-19] MEDS ORDERED: PANTOprazole SOD 40 MG TAB PO ONE ×2 (22:11→23:45)
[2016-06-19] MEDS ORDERED: IV FLUIDS COMPLETED PRN (22:45)
[2016-06-19] MEDS ORDERED: ONDANSETRON INJ 2 MG/ML 2 ML VIAL IV PRN ×2 (22:45→23:15)
[2016-06-19] MEDS ORDERED: EpHEDrine SULFATE INJ 50 MG/ML AMP IV PRN (22:45)
[2016-06-19] MEDS ORDERED: ATROPINE SULFATE 0.1 MG/ML 5ML SYR IV PRN (22:45)
[2016-06-19] MEDS ORDERED: FENTANYL CITRATE INJ 50 MCG/1 ML 2 ML VIAL IV PRN (22:45)
[2016-06-19 22:55] LABS: INR 1.1 (0.9-1.1); PROTHROMBIN TIME (PATIENT) 11.6 SECONDS (9.0-12.0)
[2016-06-19 23:02] LABS: ALKALINE PHOSPHATASE 157 U/L (45-117); ALT/SGPT 18 U/L (12-78); AST/SGOT 17 U/L (15-37); MAGNESIUM 2.6 mg/dl (1.8-2.4)
[2016-06-19] MEDS ORDERED: GLUCOSE 40% GEL 15 GM TUBE PO PRN (23:15)
[2016-06-19] MEDS ORDERED: GLUCAGON FOR INJ 1 MG VIAL SQ PRN (23:15)
[2016-06-19] MEDS ORDERED: HYDROmorphone INJ 1 MG/ML SYR IV PRN (23:15)
[2016-06-19] MEDS ORDERED: DEXTROSE 50% 50 ML SYR IV PRN (23:15)
[2016-06-19] MEDS ORDERED: NITROGLYCERIN 0.4 MG SL PER TAB CHARGE SL PRN (23:15)
[2016-06-19] MEDS ORDERED: LEVALBUTEROL/IPRATROPIUM NEB INH PRN (23:15)
[2016-06-19] MEDS ORDERED: ACETAMINOPHEN 325 MG TAB PO PRN (23:15)
[2016-06-19] MEDS ORDERED: GLUCOSE 10 TABS/TUBE PO PRN (23:15)
[2016-06-19 23:20] VITALS: BP 118/68; PULSE 88; TEMP 36.9; O2SAT 94; O2SAT 97; Ht 157.5 cm; Wt 55.2 kg
--- NOTE | 2016-06-19 23:29 | Anesthesiology Progress Note ---
Anesthesia Post Op Note Date & Time June 19, 2016 at 23:30 Vital Signs Pain Intensity: 0 Vital Signs Past 12 Hours Date Time Temp Pulse Resp B/P Pulse Ox O2 Delivery O2 Flow Rate FiO2 06/19/16 23:00 85 14 122/61 99 Nasal Cannula 2 06/19/16 22:45 36.7 83 18 119/56 97 Nasal Cannula 2 06/19/16 22:35 84 19 126/60 97 Nasal Cannula 2 06/19/16 22:25 86 12 135/61 100 Mask 6 06/19/16 22:15 88 23 138/67 97 Mask 6 06/19/16 22:09 36.4 88 20 142/67 97 Mask 8 06/19/16 19:42 94 19 140/77 98 06/19/16 18:59 94 19 140/77 98 Nasal Cannula 2.0 06/19/16 18:35 89 Room Air 06/19/16 18:34 95 Nasal Cannula 2.0 06/19/16 18:29 93 23 98 Nasal Cannula 2.0 06/19/16 18:29 87 Room Air 06/19/16 17:59 93 25 06/19/16 17:52 96 06/19/16 17:23 98 Room Air 06/19/16 17:09 89 18 141/69 95 Room Air Notes Mental Status: alert / awake / arousable, participated in evaluation Pt Amnestic to Procedure: Yes Nausea / Vomiting: adequately controlled Pain: adequately controlled Airway Patency, RR, SpO2: stable & adequate BP & HR: stable & adequate Hydration State: stable & adequate Anesthetic Complications: no major complications apparent
[2016-06-19 23:45] VITALS: BP 120/72; PULSE 83; O2SAT 97
[2016-06-19] MEDS ORDERED: IPRATROPIUM BROMIDE NEB SOLN 0.02% 2.5 ML VIAL INH PRN (23:45)
[2016-06-19] MEDS ORDERED: CARVEDILOL 6.25 MG TAB PO ONE (23:45)
[2016-06-19] MEDS ORDERED: LEVALBUTEROL 1.25MG/0.5ML NEB INH PRN (23:45)
[2016-06-20] VITALS (11 sets, daily range): BP systolic 95–143; BP diastolic 47–83; PULSE 76–83; TEMP 36.6–36.9; O2SAT 94–100
[2016-06-20] MEDS ORDERED: HYDROmorphone INJ 1 MG/ML SYR IV PRN
--- NOTE | 2016-06-20 03:40 | HISTORY & PHYSICAL EXAMINATION ---
DATE OF ADMISSION: 06/19/2016 PRIMARY CARE DOCTOR: Dr. Willie Oliver obtained from px and records. CHIEF COMPLAINT: Ham stuck in the throat. HISTORY OF PRESENT ILLNESS: Medical history is significant for chronic respiratory failure secondary to COPD on home O2, chronic systolic heart failure secondary to ischemic cardiomyopathy (improved recent EF of 45%, TTE 2015) sp ICD, chronic left bundle branch block, hx PAF/PE off anticoagulation because of occult GI bleed/patient preference as per records, HTN, DM2, diet controlled. ESRD on HD, WANDA as per records, past tobacco abuse, hx MSSA endocarditis sp ICD/dialysis catheter removal ([facility], 03/2016) sp antibiotic rx, Recent confinement last February 2016 for malfunctioning, dialysis femoral fistula. Px transferred to [facility]. Recent confinement at [facility] for MSSA endocarditis. Large vegetation found on atrial lead of biventricular ICD. ICD and dialysis catheter removed. Px completed outpx antibiotic regimen under [facility] (Dr. Kinsey) supervision. Tonight, the patient was eating when she noted food getting stuck in the middle of her chest. Some achy chest discomfort. No unusual shortness of breath. She has trouble swallowing. She was brought to the Emergency Room. She had an EGD which disclosed food impaction in the upper third of the esophagus. Reflux esophagitis, esophageal stenosis and gastroduodenitis noted. Food bolus was removed. As per anesthesiologist, atrial/ventricular ectopy noted on the monitor. Overnight observation recommended. MEDICAL HISTORY: As above. Hemodialysis MWF 2D echo from October 2015 showed EF of 45%, moderate size wall motion abnormality involving the mid apical septum, apical inferior wall segments, moderate valvular stenosis, aortic stenosis, mild MR, PASP was 60 mmHg, severe TR, dilated IVC. SURGERIES: She has had ICD placement, AV fistula, cholecystectomy and bowel obstruction surgery HOME MEDICATIONS: Include; hydralazine, Vicodin, Imdur, levothyroxine, losartan, amlodipine, Lipitor, B complex, carvedilol, furosemide and aspirin. ALLERGIES: TO BEE STING, BACLOFEN AND MELLO INHIBITOR. FAMILY HISTORY: Heart disease. PERSONAL AND SOCIAL HISTORY: Past tobacco abuse, no chronic intake of alcoholic beverages. Retired cafeteria employee. Lives w/ son. REVIEW OF SYSTEMS: As per HPI, all other ROS negative. PHYSICAL EXAMINATION: VITAL SIGNS: Blood pressure was noted to be 126/60, pulse rate 84, RR 19, temperature 36.8 and sats 97 on two liters. GENERAL: Noted to be comfortable. Occasionally coughing; hoarse. no respiratory distress, chronically ill. SKIN: Pallor. HEENT: Pale palpebral conjunctivae. Dry mucosa. NECK: No JVD , supple CHEST: Decreased breath sounds. HEART: Systolic murmur. ABDOMEN: Soft. NT EXTREMITIES: No edema, no tenderness. NEUROLOGIC: No gross focality except for mild hearing impairment. LABORATORIES: Hemoglobin was noted to be 13, white cell count 6.6 and platelets 179. Sodium 138, potassium 4.2, chloride 104, CO2 27, BUN 26, creatinine 2.4, glucose 102, alkaline phosphatase 107 magnesium was noted to be 2.6. trop 0.01 Chest x-ray; minimal congestion, cardiomegaly. EKG as per my interpretation : NSR, LBBB, PVCs ASSESSMENT: 1. Kimberley-procedural ectopy asymptomatic 2. Food bolus impaction status post remova esophageal stenosis, gastritis, duodenitis on EGD 3. chronic systolic heart failure secondary to ischemic cardiomyopathy sp ICD EF 45-50% mild congestion on x-ray no unusual sob sx 4. hx CAD/CVA as per records 5. chronic resp failure to COPD on home O2 past tobacco abuse pulmo status at baseline 6. HTN, stable 7. PAF, px NSR off coumadin since 2010 due to occult GI bleed/px preference as per records chronic left bundle branch block 8. hx PE off coumadin 9. WANDA as per records 10. ESRD on hemodialysis 11. DM2, diet well-controlled as of recent outpx HgA1c (4.6 in December 2015) 12. recent hx MSSA endocarditis sp ICD/dialysis catheter removal (03/2016, [facility]) sp completion of antibiotic rx PLAN: Observation in PCU as per Anesthesiology recommendations. facilitate home BB to suppress ectopy Full liquid diet the next 2 weeks, Nutrition consult (RE full liquid diet education); PPI BID - as per GI recommendation. ISS BG goal 140-180 PT/OT evaluation. DVT prophylaxis, SCDs re hx occult GI bleed Full code. MTDD
[2016-06-20] MEDS ORDERED: HEPARIN SOD 5000 UNIT/0.5 ML CARP SQ SCH (06:00)
[2016-06-20] MEDS: LEVOTHYROXINE 50 MCG TAB PO SCH (06:03)
[2016-06-20 06:22] LABS: BASO % 0.4 %; BASO ABS # 0.02 K/uL (0-0.2); COMPLETE YES; EOS % 4.4 %; HEMATOCRIT 39.1 % (37-47); IG% 0.2 %; LYMPH % 15.3 %; LYMPH ABS # 0.73 K/uL (1.2-3.4); MEAN CORPUSCULAR HEMOGLOBIN 29.5 pg (25-34); MEAN CORPUSCULAR HGB CONC 29.2 g/dl (32-36); MEAN PLATELET VOLUME 9.7 fL (7.4-10.4); MONO % 13.6 %; NEUT % 66.1 %; PLATELET COUNT 157 K/uL (130-400); RED BLOOD COUNT 3.87 M/uL (4.2-5.4); WHITE BLOOD COUNT 4.78 K/uL (4.8-10.8)
[2016-06-20 07:01] LABS: BUN/CREATININE RATIO 8.3 (10-20); CALCIUM 8.2 mg/dl (8.5-10.1); CREATININE 4.1 mg/dl (0.60-1.20); POTASSIUM 4.7 mmol/L (3.5-5.1)
[2016-06-20] MEDS: INSULIN ASPART 100 UNITS/ML 3 ML PEN SC SCH ×4 (07:35→20:32)
[2016-06-20] MEDS: CARVEDILOL 6.25 MG TAB PO SCH ×2 (07:36→20:32)
[2016-06-20] MEDS: AMLODIPINE BESYLATE 5 MG TAB PO SCH (07:37)
[2016-06-20] MEDS: FUROSEMIDE 80 MG TAB PO SCH (07:37)
[2016-06-20] MEDS: ISOSORBIDE DINITRATE 20 MG TAB PO SCH ×3 (07:38→16:30)
[2016-06-20] MEDS: SEVELAMER HYDROCH 800 MG TAB PO SCH ×3 (07:38→16:29)
[2016-06-20] MEDS: LOSARTAN POTASSIUM 25 MG TAB PO SCH (07:38)
[2016-06-20] MEDS: ASPIRIN 81 MG ECTAB PO SCH (07:40)
[2016-06-20] MEDS ORDERED: PANTOprazole SOD 40 MG TAB PO SCH (09:00)
--- NOTE | 2016-06-20 09:57 | Progress Note ---
Medicine Progress Note Date & Time of Visit: June 20, 2016 at 09:48. Subjective seen sitting up in bedside chair alert, comfortable states she feels well overall denies chest pain, dyspnea, dizziness, palpitations tolerating full liquid diet, no nausea denies other symptoms states she is ready and would like to go home today Objective Last 8 Hrs Date Time Temp Pulse Resp B/P Pulse Ox O2 Delivery O2 Flow Rate FiO2 06/20/16 08:00 Nasal Cannula 2.0 06/20/16 07:35 36.9 82 18 123/56 98 Nasal Cannula 2.0 06/20/16 04:05 94 Nasal Cannula 2.0 06/20/16 04:00 36.9 80 20 108/57 98 Nasal Cannula 2.0 Physical Exam: General- oriented x 3, not in distress, speaks in sentences with no effort Head- atraumatic Eyes- EOMI, anicteric ENT- oropharynx clear Neck- supple, no JVD, no adenopathy, no thyromegaly; carotids no bruits appreciated Lungs- clear breath sounds bilaterally Heart- normal rate, regular rhythm; no murmurs Abdomen- normal bowel sounds, soft, nontender, no masses o Extremities- no pretibial edema, no calf tenderness; peripheral pulses intact Neuro- alert, oriented x 3; no gross focal neuro deficits Skin- warm & dry Laboratory Results: Last 24 Hours Test 06/19/16 17:50 06/19/16 22:37 06/20/16 05:50 06/20/16 06:29 White Blood Count 6.61 K/uL 4.78 K/uL Red Blood Count 4.28 M/uL 3.87 M/uL Hemoglobin 13.0 g/dL 11.4 g/dL Hematocrit 42.8 % 39.1 % Mean Corpuscular Volume 100.0 fL 101.0 fL Mean Corpuscular Hemoglobin 30.4 pg 29.5 pg Mean Corpuscular Hemoglobin Concent 30.4 g/dl 29.2 g/dl Platelet Count 179 K/uL 157 K/uL Mean Platelet Volume 10.8 fL 9.7 fL Neutrophils (%) (Auto) 81.4 % 66.1 % Lymphocytes (%) (Auto) 7.4 % 15.3 % Monocytes (%) (Auto) 7.9 % 13.6 % Eosinophils (%) (Auto) 2.9 % 4.4 % Basophils (%) (Auto) 0.2 % 0.4 % Neutrophils # (Auto) 5.39 K/uL 3.16 K/uL Lymphocytes # (Auto) 0.49 K/uL 0.73 K/uL Monocytes # (Auto) 0.52 K/uL 0.65 K/uL Eosinophils # (Auto) 0.19 K/uL 0.21 K/uL Basophils # (Auto) 0.01 K/uL 0.02 K/uL RDW Standard Deviation 63.5 fL 65.2 fL RDW Coefficient of Variation 17.5 % 17.6 % Immature Granulocyte % (Auto) 0.2 % 0.2 % Immature Granulocyte # (Auto) 0.01 K/uL 0.01 K/uL Nucleated RBC Absolute Count (auto) 0.02 K/uL 0.02 K/uL Nucleated Red Blood Cells % 0.3 % 0.4 % Prothrombin Time 11.6 SECONDS Prothromb Time International Ratio 1.1 Sodium Level 138 mmol/L 139 mmol/L Potassium Level 4.2 mmol/L 4.7 mmol/L Chloride Level 104 mmol/L 106 mmol/L Carbon Dioxide Level 27 mmol/L 25 mmol/L Anion Gap 7.0 mmol/L 8.0 mmol/L Blood Urea Nitrogen 26 mg/dl 34 mg/dl Creatinine 3.40 mg/dl 4.10 mg/dl Estimated GFR () 13.7 11.0 Estimated GFR (Non- 11.9 9.5 BUN/Creatinine Ratio 7.6 8.3 Random Glucose 102 mg/dl 74 mg/dl Calcium Level 8.7 mg/dl 8.2 mg/dl Magnesium Level 2.6 mg/dl Total Bilirubin 0.5 mg/dl Direct Bilirubin 0.2 mg/dl Aspartate Amino Transf (AST/SGOT) 17 U/L Alanine Aminotransferase (ALT/SGPT) 18 U/L Alkaline Phosphatase 157 U/L Troponin I 0.024 ng/ml Total Protein 8.2 gm/dl Albumin 3.1 gm/dl Thyroid Stimulating Hormone (TSH) 3.270 uIu/ml Bedside Glucose 105 mg/dl 74 mg/dl Est Creatinine Clear Calc Drug Dose 8.2 ml/min Assessment & Plan 81 year old female with history of ESRD, CAD, CHF, DM, HTN, Chronic Respiratory Failure on Oxygen, COPD, presenting with PVCs. PVC seen on initial EKG asymptomatic EKG this AM, improved electrolytes ok remains asymptomatic Food bolus impaction s/p EGD: esophageal stenosis, gastritis, duodenitis on EGD - evaluated by Dr. Wang -Impression: - Food in the upper third of the esophagus, in the middle third of the esophagus and in the lower third of the esophagus. Removal was successful. - LA Grade C reflux esophagitis. - Esophageal stenosis. - Gastritis. - Duodenitis. Recommendation: - Discharge patient to home (with escort). - Full liquid diet for 2 weeks. No meat, no vegetables. Only pureed and foods that can be eaten with a spoon. - Use Prilosec (omeprazole) 40 mg PO BID. - Repeat procedure in 3-4 weeks for dilation, full inspection to eliminate possibility of mass that was masked by food particles and inflammation. Chronic systolic heart failure secondary to ischemic cardiomyopathy sp ICD EF 45-50% -- no signs of overt overload appears euvolemic -- continue usual medications HD per Nephrop CAD/CVA -- no cardiac symptoms chronic resp failure to COPD on home O2 past tobacco abuse -- no signs of exacerbation HTN stable PAF, px NSR off coumadin since 2010 due to occult GI bleed/px preference as per records Chronic left bundle branch block PE off coumadin ESRD on hemodialysis due for tomorrow DM2, diet well-controlled as of recent outpx HgA1c (4.6 in December 2015) Recent hx MSSA endocarditis sp ICD/dialysis catheter removal (03/2016, [facility]) s/p completion of antibiotic rx Disposition awaiting PT/OT eval anticipate return home today Current Inpatient Medications: Current Inpatient Medications Medications (Trade) Dose Ordered Sig/Claudette Route Start Time Stop Time Status Last Admin Dose Admin Pantoprazole Sodium (Protonix Tab) 40 mg BID PO 06/20/16 09:00 07/20/16 08:59 06/20/16 07:40 40 MG Ondansetron HCl (Zofran Inj) 4 mg ONE PRN IV 06/19/16 22:45 Miscellaneous (Iv Fluids Completed) 1 ea PRN PRN N/A 06/19/16 22:45 06/19/17 22:44 Acetaminophen (Tylenol Tab) 650 mg Q4H PRN PO 06/19/16 23:15 07/19/16 23:14 Nitroglycerin (Nitrostat Tab) 0.4 mg UD PRN SL 06/19/16 23:15 07/19/16 23:14 Insulin Aspart (novoLOG ASPART) SLIDING SCALE If C... ACHS SC 06/20/16 07:00 07/20/16 06:59 Glucose (Glucose 40% Gel) 15-30 GRAMS 15 GRAMS... UD PRN PO 06/19/16 23:15 07/19/16 23:14 Glucose (Glucose Chew Tab) 4-8 Tablets 4 Tabl... UD PRN PO 06/19/16 23:15 07/19/16 23:14 Dextrose (Dextrose 50% 50ML Syringe) 25-50ML OF 50% DW IV FOR... UD PRN IV 06/19/16 23:15 07/19/16 23:14 Glucagon (Glucagon Inj) 1 mg UD PRN SQ 06/19/16 23:15 07/19/16 23:14 Ondansetron HCl (Zofran Inj) 4 mg Q6H PRN IV 06/19/16 23:15 07/19/16 23:14 Amlodipine Besylate (Norvasc Tab) 2.5 mg DAILY PO 06/20/16 09:00 07/20/16 08:59 06/20/16 07:37 2.5 MG Atorvastatin Calcium (Lipitor Tab) 10 mg HS PO 06/20/16 21:00 07/20/16 20:59 Vitamin B Complex/ Vit C/Folic Acid (Nephrocaps) 1 cap QPM PO 06/20/16 21:00 07/20/16 20:59 Carvedilol (Coreg Tab) 6.25 mg BID PO 06/20/16 09:00 07/20/16 08:59 06/20/16 07:36 6.25 MG Furosemide (Lasix Tab) 80 mg DAILY PO 06/20/16 09:00 07/20/16 08:59 06/20/16 07:37 80 MG Hydralazine HCl (Apresoline Tab) 25 mg TID PO 06/20/16 09:00 07/20/16 08:59 06/20/16 07:37 25 MG Acetaminophen/ Hydrocodone Bitart ([place] 5/325 Tab) 1 tab Q4H PRN PO 06/19/16 23:15 07/03/16 23:14 Isosorbide Dinitrate (Isordil Tab) 20 mg TID@0700,1200,1700 PO 06/20/16 07:00 07/20/16 06:59 06/20/16 07:38 20 MG Levothyroxine Sodium (Synthroid Tab) 50 mcg DAILYBB PO 06/20/16 06:00 07/20/16 05:59 06/20/16 06:03 50 MCG Losartan Potassium (coZAAR TAB) 25 mg DAILY PO 06/20/16 09:00 07/20/16 08:59 06/20/16 07:38 25 MG Sevelamer HCl (Renagel Tab) 2,400 mg TIDM PO 06/20/16 07:30 07/20/16 07:59 06/20/16 07:38 2,400 MG Aspirin (Ecotrin Tab) 81 mg QAM PO 06/20/16 09:00 07/20/16 08:59 06/20/16 07:40 81 MG Ipratropium [place] (Atrovent 0.02% 0.5MG/2.5ML Neb) 0.5 mg Q4H PRN INH 06/19/16 23:45 07/19/16 23:44 Levalbuterol (Xopenex 1.25MG/ 0.5ML Neb) 1.25 mg Q4H PRN INH 06/19/16 23:45 07/19/16 23:44 Hydromorphone HCl (Dilaudid Inj) 0.5 mg Q4H PRN IV 06/20/16 00:00 07/04/16 00:00
--- NOTE | 2016-06-20 10:10 | Gastroenterology Progress Note ---
Progress Note Date of Service: June 20, 2016 Subjective Pt evaluation today including: conversation w/ patient, physical exam, chart review, lab review, review of studies, review of inpatient medication list Ms. Noonan is an 81 yr old female with CKD on HD, CAD, requiring chronic O2 who presented to the ED yesterday with c/o food bolus since 9:30Am and underwent EGD for removal of food bolus last night, with removal of the food and findings of Grade C esophagitis, a very tight (9mm) esophageal stricture and gastritis. This morning she is feeling well. She ate cream of wheat cereal w/o any dysphagia or odynophagia. Review of Systems Constitutional: No fever ENT: No hearing loss, No nasal symptoms, No unusual epistaxis Respiratory: No cough Cardiac: No chest pain Abdomen: + see HPI, No diarrhea, No nausea, No pain, No vomiting Female : No dysuria Neuro: No memory loss Psych: No depression symptoms Endo: No fatigue Skin: No rash Medications Current Inpatient Medications Medications (Trade) Dose Ordered Sig/Claudette Route Start Time Stop Time Status Last Admin Dose Admin Pantoprazole Sodium (Protonix Tab) 40 mg BID PO 06/20/16 09:00 07/20/16 08:59 06/20/16 07:40 40 MG Ondansetron HCl (Zofran Inj) 4 mg ONE PRN IV 06/19/16 22:45 Miscellaneous (Iv Fluids Completed) 1 ea PRN PRN N/A 06/19/16 22:45 06/19/17 22:44 Acetaminophen (Tylenol Tab) 650 mg Q4H PRN PO 06/19/16 23:15 07/19/16 23:14 Nitroglycerin (Nitrostat Tab) 0.4 mg UD PRN SL 06/19/16 23:15 07/19/16 23:14 Insulin Aspart (novoLOG ASPART) SLIDING SCALE If C... ACHS SC 06/20/16 07:00 07/20/16 06:59 Glucose (Glucose 40% Gel) 15-30 GRAMS 15 GRAMS... UD PRN PO 06/19/16 23:15 07/19/16 23:14 Glucose (Glucose Chew Tab) 4-8 Tablets 4 Tabl... UD PRN PO 06/19/16 23:15 07/19/16 23:14 Dextrose (Dextrose 50% 50ML Syringe) 25-50ML OF 50% DW IV FOR... UD PRN IV 06/19/16 23:15 07/19/16 23:14 Glucagon (Glucagon Inj) 1 mg UD PRN SQ 06/19/16 23:15 07/19/16 23:14 Ondansetron HCl (Zofran Inj) 4 mg Q6H PRN IV 06/19/16 23:15 07/19/16 23:14 Amlodipine Besylate (Norvasc Tab) 2.5 mg DAILY PO 06/20/16 09:00 07/20/16 08:59 06/20/16 07:37 2.5 MG Atorvastatin Calcium (Lipitor Tab) 10 mg HS PO 06/20/16 21:00 07/20/16 20:59 Vitamin B Complex/ Vit C/Folic Acid (Nephrocaps) 1 cap QPM PO 06/20/16 21:00 07/20/16 20:59 Carvedilol (Coreg Tab) 6.25 mg BID PO 06/20/16 09:00 07/20/16 08:59 06/20/16 07:36 6.25 MG Furosemide (Lasix Tab) 80 mg DAILY PO 06/20/16 09:00 07/20/16 08:59 06/20/16 07:37 80 MG Hydralazine HCl (Apresoline Tab) 25 mg TID PO 06/20/16 09:00 07/20/16 08:59 06/20/16 07:37 25 MG Acetaminophen/ Hydrocodone Bitart ([place] 5/325 Tab) 1 tab Q4H PRN PO 06/19/16 23:15 07/03/16 23:14 Isosorbide Dinitrate (Isordil Tab) 20 mg TID@0700,1200,1700 PO 06/20/16 07:00 07/20/16 06:59 06/20/16 07:38 20 MG Levothyroxine Sodium (Synthroid Tab) 50 mcg DAILYBB PO 06/20/16 06:00 07/20/16 05:59 06/20/16 06:03 50 MCG Losartan Potassium (coZAAR TAB) 25 mg DAILY PO 06/20/16 09:00 07/20/16 08:59 06/20/16 07:38 25 MG Sevelamer HCl (Renagel Tab) 2,400 mg TIDM PO 06/20/16 07:30 07/20/16 07:59 06/20/16 07:38 2,400 MG Aspirin (Ecotrin Tab) 81 mg QAM PO 06/20/16 09:00 07/20/16 08:59 06/20/16 07:40 81 MG Ipratropium [place] (Atrovent 0.02% 0.5MG/2.5ML Neb) 0.5 mg Q4H PRN INH 06/19/16 23:45 07/19/16 23:44 Levalbuterol (Xopenex 1.25MG/ 0.5ML Neb) 1.25 mg Q4H PRN INH 06/19/16 23:45 07/19/16 23:44 Hydromorphone HCl (Dilaudid Inj) 0.5 mg Q4H PRN IV 06/20/16 00:00 07/04/16 00:00 Objective Vital Signs Date Time Temp Pulse Resp B/P Pulse Ox O2 Delivery O2 Flow Rate FiO2 06/20/16 08:00 Nasal Cannula 2.0 06/20/16 07:35 36.9 82 18 123/56 98 Nasal Cannula 2.0 06/20/16 04:05 94 Nasal Cannula 2.0 06/20/16 04:00 36.9 80 20 108/57 98 Nasal Cannula 2.0 06/20/16 01:30 77 14 136/68 100 Nasal Cannula 2.0 06/20/16 00:15 82 16 143/83 98 Nasal Cannula 2.0 06/20/16 00:00 97 2.0 06/19/16 23:45 83 18 120/72 97 Nasal Cannula 2.0 06/19/16 23:20 36.9 88 21 118/68 97 4.0 06/19/16 23:20 36.9 88 21 118/68 94 Nasal Cannula 2.0 06/19/16 23:00 85 14 122/61 99 Nasal Cannula 2 06/19/16 22:45 36.7 83 18 119/56 97 Nasal Cannula 2 06/19/16 22:35 84 19 126/60 97 Nasal Cannula 2 06/19/16 22:25 86 12 135/61 100 Mask 6 06/19/16 22:15 88 23 138/67 97 Mask 6 06/19/16 22:09 36.4 88 20 142/67 97 Mask 8 06/19/16 19:42 94 19 140/77 98 06/19/16 18:59 94 19 140/77 98 Nasal Cannula 2.0 06/19/16 18:35 89 Room Air 06/19/16 18:34 95 Nasal Cannula 2.0 06/19/16 18:29 93 23 98 Nasal Cannula 2.0 06/19/16 18:29 87 Room Air 06/19/16 17:59 93 25 06/19/16 17:52 96 06/19/16 17:23 98 Room Air 06/19/16 17:09 89 18 141/69 95 Room Air Physical Exam General Appearance: no apparent distress, + thin ENT: pharynx normal Neck: no JVD Respiratory/Chest: lungs clear Cardiovascular: regular rate, rhythm, no JVD, no murmur Abdomen: non tender, soft Neurologic/Psych: alert, normal mood/affect, oriented x 3 Skin: no jaundice Laboratory Results Last 24 Hours Test 06/19/16 17:50 06/19/16 22:37 06/20/16 05:50 06/20/16 06:29 White Blood Count 6.61 K/uL 4.78 K/uL Red Blood Count 4.28 M/uL 3.87 M/uL Hemoglobin 13.0 g/dL 11.4 g/dL Hematocrit 42.8 % 39.1 % Mean Corpuscular Volume 100.0 fL 101.0 fL Mean Corpuscular Hemoglobin 30.4 pg 29.5 pg Mean Corpuscular Hemoglobin Concent 30.4 g/dl 29.2 g/dl Platelet Count 179 K/uL 157 K/uL Mean Platelet Volume 10.8 fL 9.7 fL Neutrophils (%) (Auto) 81.4 % 66.1 % Lymphocytes (%) (Auto) 7.4 % 15.3 % Monocytes (%) (Auto) 7.9 % 13.6 % Eosinophils (%) (Auto) 2.9 % 4.4 % Basophils (%) (Auto) 0.2 % 0.4 % Neutrophils # (Auto) 5.39 K/uL 3.16 K/uL Lymphocytes # (Auto) 0.49 K/uL 0.73 K/uL Monocytes # (Auto) 0.52 K/uL 0.65 K/uL Eosinophils # (Auto) 0.19 K/uL 0.21 K/uL Basophils # (Auto) 0.01 K/uL 0.02 K/uL RDW Standard Deviation 63.5 fL 65.2 fL RDW Coefficient of Variation 17.5 % 17.6 % Immature Granulocyte % (Auto) 0.2 % 0.2 % Immature Granulocyte # (Auto) 0.01 K/uL 0.01 K/uL Nucleated RBC Absolute Count (auto) 0.02 K/uL 0.02 K/uL Nucleated Red Blood Cells % 0.3 % 0.4 % Prothrombin Time 11.6 SECONDS Prothromb Time International Ratio 1.1 Sodium Level 138 mmol/L 139 mmol/L Potassium Level 4.2 mmol/L 4.7 mmol/L Chloride Level 104 mmol/L 106 mmol/L Carbon Dioxide Level 27 mmol/L 25 mmol/L Anion Gap 7.0 mmol/L 8.0 mmol/L Blood Urea Nitrogen 26 mg/dl 34 mg/dl Creatinine 3.40 mg/dl 4.10 mg/dl Estimated GFR () 13.7 11.0 Estimated GFR (Non- 11.9 9.5 BUN/Creatinine Ratio 7.6 8.3 Random Glucose 102 mg/dl 74 mg/dl Calcium Level 8.7 mg/dl 8.2 mg/dl Magnesium Level 2.6 mg/dl Total Bilirubin 0.5 mg/dl Direct Bilirubin 0.2 mg/dl Aspartate Amino Transf (AST/SGOT) 17 U/L Alanine Aminotransferase (ALT/SGPT) 18 U/L Alkaline Phosphatase 157 U/L Troponin I 0.024 ng/ml Total Protein 8.2 gm/dl Albumin 3.1 gm/dl Thyroid Stimulating Hormone (TSH) 3.270 uIu/ml Bedside Glucose 105 mg/dl 74 mg/dl Est Creatinine Clear Calc Drug Dose 8.2 ml/min Assessment and Plan Ms Noonan is an 81 yr old female with esophagitis, post procedure day #1 from EGD for food bolus with complete removal of the food/debris. Plan: 1. For esophagitis: BID PPI. 2. Recommend pills in applesauce or pudding as likely to have pill dysphagia. 3. Recommend mechanical soft, slippery diet (until at least the next EGD). 4. Plan for repeat EGD in 4-6 weeks. Our office will contact her to arrange. I saw and evaluated the paient with cheryl, she is s/p EGD last evening for a food impaction. Recomendations BID PPI Full liquid diet Repeat EGD with Dr. Wang in 3 to 4 weeks
--- NOTE | 2016-06-20 16:42 | Progress Note ---
Progress Note Date of Service June 20, 2016. Progress Note patient re- evaluated having nausea, "burning" in the epigastric region not sure if this started after lunch or after taking pills no other symptoms discussed with GI SVC JACQUELINE Oliver, recommend EGD tomorrow with HD prior discussed with Dr. Estrella- early HD in anticipation of EGD tomorrow to be arranged NPO for now Protonix IV BID discussed with patient and her daughter, they are agreeable with plan of care Adolfo Mosher MD
[2016-06-20] MEDS ORDERED: PANTOprazole INJ 40 MG in SYRINGE 0 ML IV ONE (17:30)
--- NOTE | 2016-06-20 18:52 | Progress Note ---
Progress Note Date of Service June 20, 2016. Progress Note checked with RN patient's nausea resolved, more comfortable patient was sleeping when I attempted to examine her Adolfo Mosher MD
[2016-06-20] MEDS ORDERED: D5W AND NSS 1,000 ML IV SCH (19:45)
[2016-06-20] MEDS: ATORVASTATIN 10 MG TAB PO SCH (20:32)
[2016-06-20] MEDS: NEPHROCAPS PO SCH (20:32)
[2016-06-21] VITALS (28 sets, daily range): BP systolic 107–136; BP diastolic 54–77; PULSE 74–110; TEMP 36.4–37.2; O2SAT 18–100
[2016-06-21] MEDS: LEVOTHYROXINE 50 MCG TAB PO SCH (05:53)
[2016-06-21] MEDS ORDERED: BISACODYL 10 MG SUPP PR PRN (06:15)
[2016-06-21] MEDS: INSULIN ASPART 100 UNITS/ML 3 ML PEN SC SCH ×4 (07:00→22:07)
[2016-06-21] MEDS: ISOSORBIDE DINITRATE 20 MG TAB PO SCH ×3 (07:00→17:18)
[2016-06-21] MEDS: SEVELAMER HYDROCH 800 MG TAB PO SCH ×3 (07:30→16:45)
[2016-06-21] MEDS: LOSARTAN POTASSIUM 25 MG TAB PO SCH (07:37)
[2016-06-21] MEDS: CARVEDILOL 6.25 MG TAB PO SCH ×2 (07:37→22:05)
[2016-06-21] MEDS: FUROSEMIDE 80 MG TAB PO SCH (07:38)
[2016-06-21] MEDS: ASPIRIN 81 MG ECTAB PO SCH (07:38)
[2016-06-21] MEDS: AMLODIPINE BESYLATE 5 MG TAB PO SCH (07:39)
[2016-06-21] MEDS: PANTOprazole INJ 40 MG in SYRINGE 0 ML IV SCH ×2 (07:53→22:04)
[2016-06-21] MEDS: HYDROCODONE/ACETAMOPHEN 5/325MG TAB PO PRN ×2 (07:54→23:50)
[2016-06-21] MEDS ORDERED: HEPARIN SOD (PORCINE) 1000 UNIT/ML 10 ML VIAL IV SCH (08:00)
[2016-06-21 08:28] LABS: BUN/CREATININE RATIO 8.8 (10-20); CALCIUM 8.4 mg/dl (8.5-10.1); CREATININE 5.7 mg/dl (0.60-1.20); POTASSIUM 5.4 mmol/L (3.5-5.1)
--- NOTE | 2016-06-21 09:02 | Progress Note ---
Progress Note Date of Service June 21, 2016. Progress Note Pt seen this morning - no acute events overnight. Will plan for repeat EGD today for dilation.
--- NOTE | 2016-06-21 09:30 | Progress Note ---
Medicine Progress Note Date & Time of Visit: June 21, 2016 at 09:24. Subjective seen resting in bed, comfortable, alert states she feels fine overall, just sleepy nausea, burning sensation on the epigastric region resolved denies GI symptoms no chest pain, dyspnea, palpitations, dizziness no other symptoms Objective Last 8 Hrs Date Time Temp Pulse Resp B/P Pulse Ox O2 Delivery O2 Flow Rate FiO2 06/21/16 07:54 36.5 110 20 125/77 98 Room Air 06/21/16 04:30 Nasal Cannula 2.0 06/21/16 03:48 36.8 82 17 131/64 97 Nasal Cannula 2.0 Physical Exam: General- oriented x 3, not in distress, speaks in sentences with no effort Eyes-anicteric ENT- oropharynx clear Neck- no JVD Lungs- clear breath sounds bilaterally, no rales/wheezes Heart- normal rate, regular rhythm; no murmurs Abdomen- normal bowel sounds, non distended, soft, nontender Extremities- no pretibial edema, no calf tenderness; peripheral pulses intact Neuro- alert, oriented x 3; no gross focal neuro deficits Skin- warm & dry Laboratory Results: Last 24 Hours Test 06/20/16 11:54 06/20/16 15:59 06/20/16 17:58 06/20/16 20:26 Bedside Glucose 111 mg/dl 89 mg/dl 85 mg/dl 74 mg/dl Test 06/21/16 00:49 06/21/16 03:50 06/21/16 07:30 Bedside Glucose 78 mg/dl 82 mg/dl Sodium Level 136 mmol/L Potassium Level 5.4 mmol/L Chloride Level 103 mmol/L Carbon Dioxide Level 23 mmol/L Anion Gap 10.0 mmol/L Blood Urea Nitrogen 50 mg/dl Creatinine 5.70 mg/dl Est Creatinine Clear Calc Drug Dose 5.9 ml/min Estimated GFR () 7.4 Estimated GFR (Non- 6.3 BUN/Creatinine Ratio 8.8 Random Glucose 79 mg/dl Calcium Level 8.4 mg/dl Assessment & Plan 81 year old female with history of ESRD, CAD, CHF, DM, HTN, Chronic Respiratory Failure on Oxygen, COPD, presenting with PVCs. PVC seen on initial EKG asymptomatic repeat EKG improved electrolytes ok -- continues to be asymptomatic FOOD BOLUS IMPACTION, ESOPHAGEAL STENOSIS WITH GASTRITIS, DUODENITIS s/p EGD 5/8/17 - evaluated by Dr. Wang -Impression: - Food in the upper third of the esophagus, in the middle third of the esophagus and in the lower third of the esophagus. Removal was successful. - LA Grade C reflux esophagitis. - Esophageal stenosis. - Gastritis. - Duodenitis. Recommendation: - Discharge patient to home (with escort). - Full liquid diet for 2 weeks. No meat, no vegetables. Only pureed and foods that can be eaten with a spoon. - Use Prilosec (omeprazole) 40 mg PO BID. - Repeat procedure in 3-4 weeks for dilation, full inspection to eliminate possibility of mass that was masked by food particles and inflammation. -- had recurrence of symptoms 06/20/16 for repeat EGD today with dilation NPO for now -- will need to crush medications Chronic systolic heart failure secondary to ischemic cardiomyopathy sp ICD EF 45-50% -- no signs of overt overload appears euvolemic -- continue usual medications HD per Nephrology today CAD/CVA -- no cardiac symptoms Chronic resp failure to COPD on home O2 past tobacco abuse -- no signs of exacerbation HTN stable PAF, px NSR off coumadin since 2010 due to occult GI bleed/px preference as per records Chronic left bundle branch block PE off coumadin ESRD HD per Nephrology DM2 diet well-controlled as of recent outpatient HgA1c (4.6 in December 2015) Recent hx MSSA endocarditis sp ICD/dialysis catheter removal (03/2016, [facility]) s/p completion of antibiotic rx Disposition pending PT/OT eval Current Inpatient Medications: Current Inpatient Medications Medications (Trade) Dose Ordered Sig/Claudette Route Start Time Stop Time Status Last Admin Dose Admin Ondansetron HCl (Zofran Inj) 4 mg ONE PRN IV 06/19/16 22:45 Miscellaneous (Iv Fluids Completed) 1 ea PRN PRN N/A 06/19/16 22:45 06/19/17 22:44 Acetaminophen (Tylenol Tab) 650 mg Q4H PRN PO 06/19/16 23:15 07/19/16 23:14 Nitroglycerin (Nitrostat Tab) 0.4 mg UD PRN SL 06/19/16 23:15 07/19/16 23:14 Insulin Aspart (novoLOG ASPART) SLIDING SCALE If C... ACHS SC 06/20/16 07:00 07/20/16 06:59 Glucose (Glucose 40% Gel) 15-30 GRAMS 15 GRAMS... UD PRN PO 06/19/16 23:15 07/19/16 23:14 Glucose (Glucose Chew Tab) 4-8 Tablets 4 Tabl... UD PRN PO 06/19/16 23:15 07/19/16 23:14 Dextrose (Dextrose 50% 50ML Syringe) 25-50ML OF 50% DW IV FOR... UD PRN IV 06/19/16 23:15 07/19/16 23:14 Glucagon (Glucagon Inj) 1 mg UD PRN SQ 06/19/16 23:15 07/19/16 23:14 Ondansetron HCl (Zofran Inj) 4 mg Q6H PRN IV 06/19/16 23:15 07/19/16 23:14 06/20/16 16:34 4 MG Amlodipine Besylate (Norvasc Tab) 2.5 mg DAILY PO 06/20/16 09:00 07/20/16 08:59 06/20/16 07:37 2.5 MG Atorvastatin Calcium (Lipitor Tab) 10 mg HS PO 06/20/16 21:00 07/20/16 20:59 Vitamin B Complex/ Vit C/Folic Acid (Nephrocaps) 1 cap QPM PO 06/20/16 21:00 07/20/16 20:59 Carvedilol (Coreg Tab) 6.25 mg BID PO 06/20/16 09:00 07/20/16 08:59 06/20/16 07:36 6.25 MG Furosemide (Lasix Tab) 80 mg DAILY PO 06/20/16 09:00 07/20/16 08:59 06/20/16 07:37 80 MG Hydralazine HCl (Apresoline Tab) 25 mg TID PO 06/20/16 09:00 07/20/16 08:59 06/20/16 07:37 25 MG Acetaminophen/ Hydrocodone Bitart ([place] 5/325 Tab) 1 tab Q4H PRN PO 06/19/16 23:15 07/03/16 23:14 06/21/16 07:54 1 TAB Isosorbide Dinitrate (Isordil Tab) 20 mg TID@0700,1200,1700 PO 06/20/16 07:00 07/20/16 06:59 06/20/16 07:38 20 MG Levothyroxine Sodium (Synthroid Tab) 50 mcg DAILYBB PO 06/20/16 06:00 07/20/16 05:59 06/20/16 06:03 50 MCG Losartan Potassium (coZAAR TAB) 25 mg DAILY PO 06/20/16 09:00 07/20/16 08:59 06/20/16 07:38 25 MG Sevelamer HCl (Renagel Tab) 2,400 mg TIDM PO 06/20/16 07:30 07/20/16 07:59 06/20/16 11:54 2,400 MG Aspirin (Ecotrin Tab) 81 mg QAM PO 06/20/16 09:00 07/20/16 08:59 06/20/16 07:40 81 MG Ipratropium [place] (Atrovent 0.02% 0.5MG/2.5ML Neb) 0.5 mg Q4H PRN INH 06/19/16 23:45 07/19/16 23:44 Levalbuterol (Xopenex 1.25MG/ 0.5ML Neb) 1.25 mg Q4H PRN INH 06/19/16 23:45 07/19/16 23:44 Hydromorphone HCl 0.5 mg 0.5 mg Q4H PRN IV 06/20/16 00:00 07/04/16 00:00 Pantoprazole Sodium 40 mg/ Syringe 10 ml @ 5 mls/min BID@0900,2100 IV 06/21/16 09:00 07/21/16 08:59 06/21/16 07:53 5 MLS/MIN Dextrose/Sodium Chloride (D5W And Nss) 1,000 ml @ 20 mls/hr Q24H IV 06/20/16 19:45 07/20/16 19:44 06/20/16 20:30 20 MLS/HR Bisacodyl (Dulcolax Supp) 10 mg DAILY PRN NC 06/21/16 06:15 07/21/16 06:14 06/21/16 06:41 10 MG Heparin Sodium (Porcine) (Heparin Iv Bolus) 1,000 unit TODAY@0800 IV 06/21/16 08:00 06/21/16 23:59
--- NOTE | 2016-06-21 17:08 | Nephrology Consultation ---
Nephrology Consultation Date of Consultation: June 21, 2016. Attending Physician: Dr Mosher Requesting Physician: Dr Mosher Reason for Consultation: ESRD History of Present Illness 81 year old female w/ ESRD on MWF HD via AVG, 03/2016 Critical access hospital admission for MSSA endocarditis requiring pacer wire exchange/TDC removal/AVG placement admitted 06/19 after presenting with sudden chest discomfort/inability to swallow and s/p emergent EGD to remove food bolus. She is still recovering from endocarditis admission earlier this year. EGD showed esophageal stenosis, gastritis, duodenitis, in addition to food bolus which was removed. GI plan is BID PPI, mechanical soft/slippery diet and special measures for pill dysphagia and plan had been then to repeat EGD in 3-4 wks. However pt had recurrent dysphagia yesterday evening and d/c was deferred; she is for repeat EGD today after HD. Pt had followed w/ [facility] inf dzs for abtx after hospital d/c > states she thought she was to take more po abtx but has not received. Past Medical/Surgical History Medical Problems: -early 2016 prolonged Critical access hospital admission for MSSA endocarditis from dialysis catheter and pacemaker wire requiring pacer wire exchange and new HD vascular access -coronary artery disease -chronic LBBB -chronic systilic heart failure last EF 45% (improved) 2016 s/p pacemaker/ICD -type 2 diabetes -end-stage renal disease on dialysis under care of Dr. Estrella at [facility]; complex vascular access hx, currently w/ groin AVG and s/p multiple failed AVF/ TDC -atrial fibrillation/PE/past stroke no longer on anticoagulation per pt preference and d/t GI bleeding -history of stroke -hyperlipidemia -hypertension -hypothyroidism -COPD on oxygen -s/p surgery to relieve SBO -s/p cholecystectomy -s/p tonsillectomy Family History Heart disease Social History Smoking Status: Former Smoker Alcohol Use: occasionally Drug Use: none Marital Status: Housing Status: lives alone Occupation Status: retired Allergies Coded Allergies: BEE STING (Verified Allergy, Severe, ANAPHYLAXIS, 03/02/16) MELLO Inhibitors (Verified Allergy, Unknown, UNKNOWN, 03/02/16) Baclofen (Verified Adverse Reaction, Severe, PSYCHOSIS, 03/02/16) Medications Current Inpatient Medications Medications (Trade) Dose Ordered Sig/Claudette Route Start Time Stop Time Status Last Admin Dose Admin Ondansetron HCl (Zofran Inj) 4 mg ONE PRN IV 06/19/16 22:45 Miscellaneous (Iv Fluids Completed) 1 ea PRN PRN N/A 06/19/16 22:45 06/19/17 22:44 Acetaminophen (Tylenol Tab) 650 mg Q4H PRN PO 06/19/16 23:15 07/19/16 23:14 Nitroglycerin (Nitrostat Tab) 0.4 mg UD PRN SL 06/19/16 23:15 07/19/16 23:14 Insulin Aspart (novoLOG ASPART) SLIDING SCALE If C... ACHS SC 06/20/16 07:00 07/20/16 06:59 Glucose (Glucose 40% Gel) 15-30 GRAMS 15 GRAMS... UD PRN PO 06/19/16 23:15 07/19/16 23:14 Glucose (Glucose Chew Tab) 4-8 Tablets 4 Tabl... UD PRN PO 06/19/16 23:15 07/19/16 23:14 Dextrose (Dextrose 50% 50ML Syringe) 25-50ML OF 50% DW IV FOR... UD PRN IV 06/19/16 23:15 07/19/16 23:14 Glucagon (Glucagon Inj) 1 mg UD PRN SQ 06/19/16 23:15 07/19/16 23:14 Ondansetron HCl (Zofran Inj) 4 mg Q6H PRN IV 06/19/16 23:15 07/19/16 23:14 06/20/16 16:34 4 MG Amlodipine Besylate (Norvasc Tab) 2.5 mg DAILY PO 06/20/16 09:00 07/20/16 08:59 06/20/16 07:37 2.5 MG Atorvastatin Calcium (Lipitor Tab) 10 mg HS PO 06/20/16 21:00 07/20/16 20:59 Vitamin B Complex/ Vit C/Folic Acid (Nephrocaps) 1 cap QPM PO 06/20/16 21:00 07/20/16 20:59 Carvedilol (Coreg Tab) 6.25 mg BID PO 06/20/16 09:00 07/20/16 08:59 06/20/16 07:36 6.25 MG Furosemide (Lasix Tab) 80 mg DAILY PO 06/20/16 09:00 07/20/16 08:59 06/20/16 07:37 80 MG Hydralazine HCl (Apresoline Tab) 25 mg TID PO 06/20/16 09:00 07/20/16 08:59 06/20/16 07:37 25 MG Acetaminophen/ Hydrocodone Bitart ([place] 5/325 Tab) 1 tab Q4H PRN PO 06/19/16 23:15 07/03/16 23:14 06/21/16 07:54 1 TAB Isosorbide Dinitrate (Isordil Tab) 20 mg TID@0700,1200,1700 PO 06/20/16 07:00 07/20/16 06:59 06/20/16 07:38 20 MG Levothyroxine Sodium (Synthroid Tab) 50 mcg DAILYBB PO 06/20/16 06:00 07/20/16 05:59 06/20/16 06:03 50 MCG Losartan Potassium (coZAAR TAB) 25 mg DAILY PO 06/20/16 09:00 07/20/16 08:59 06/20/16 07:38 25 MG Sevelamer HCl (Renagel Tab) 2,400 mg TIDM PO 06/20/16 07:30 07/20/16 07:59 06/20/16 11:54 2,400 MG Aspirin (Ecotrin Tab) 81 mg QAM PO 06/20/16 09:00 07/20/16 08:59 06/20/16 07:40 81 MG Ipratropium [place] (Atrovent 0.02% 0.5MG/2.5ML Neb) 0.5 mg Q4H PRN INH 06/19/16 23:45 07/19/16 23:44 Levalbuterol (Xopenex 1.25MG/ 0.5ML Neb) 1.25 mg Q4H PRN INH 06/19/16 23:45 07/19/16 23:44 Hydromorphone HCl 0.5 mg 0.5 mg Q4H PRN IV 06/20/16 00:00 07/04/16 00:00 Pantoprazole Sodium 40 mg/ Syringe 10 ml @ 5 mls/min BID@0900,2100 IV 06/21/16 09:00 6/9/17 08:59 06/21/16 07:53 5 MLS/MIN Dextrose/Sodium Chloride (D5W And Nss) 1,000 ml @ 20 mls/hr Q24H IV 06/20/16 19:45 07/20/16 19:44 06/20/16 20:30 20 MLS/HR Bisacodyl (Dulcolax Supp) 10 mg DAILY PRN [place] 06/21/16 06:15 07/21/16 06:14 06/21/16 06:41 10 MG Heparin Sodium (Porcine) (Heparin Iv Bolus) 1,000 unit TODAY@0800 IV 06/21/16 08:00 06/21/16 23:59 Home Meds and Scripts Medications Dose Route/Sig Max Daily Dose Days Date Category Cope 5MG/325MG (Acetaminophen/Hydrocodone Bitart) Tab 1 Tab PO Q4H PRN 06/19/16 Reported Lisinopril 10 Mg Tab 10 Mg PO BID 06/19/16 Reported Renvela (Sevelamer Carbonate) 800 Mg Tab 2,400 Mg PO TIDM 90 06/19/16 Reported Losartan Potassium 25 Mg Tab 25 Mg PO DAILY 06/19/16 Reported Isosorbide Dinitrate 10 Mg Tab 20 Mg PO TID 06/19/16 Reported Carvedilol 6.25 Mg Tab 6.25 Mg PO BID 06/19/16 Reported [place] Caps (B-Complex W/ C & Folic Acid) 1 Cap Cap 1 Cap PO QPM 03/01/16 Reported Apresoline (Hydralazine Hcl) 25 Mg Tab 25 Mg PO TID 03/01/16 Reported Furosemide 80 Mg Tab 80 Mg PO DAILY 03/01/16 Reported Amlodipine Besylate 5 Mg Tab 2.5 Mg PO DAILY 10/17/15 Reported Lipitor (Atorvastatin Calcium) 10 Mg Tab 10 Mg PO HS 08/08/13 Reported Levothyroxine Sodium 50 Mcg Tab 50 Mcg PO DAILY 09/02/12 Reported Review of Systems Constitutional: + fatigue, + weakness, No fever Eyes: No worsening of vision ENT: No hearing loss Respiratory: No shortness of breath Cardiac: No chest pain, No edema Abdomen: + dysphagia, No diarrhea Musculoskeletal: No joint pain, No muscle pain Female : + problem reported Neuro: + weakness Psych: No depression symptoms Heme: No abnormal bleeding/bruising Endo: + fatigue Skin: No rash Physical Exam Date Time Temp Pulse Resp B/P Pulse Ox O2 Delivery O2 Flow Rate FiO2 06/21/16 07:54 36.5 110 20 125/77 98 Room Air 06/21/16 04:30 Nasal Cannula 2.0 06/21/16 03:48 36.8 82 17 131/64 97 Nasal Cannula 2.0 06/21/16 00:30 97 2.0 06/21/16 00:30 97 Nasal Cannula 2.0 06/21/16 00:10 36.8 80 18 115/61 97 Nasal Cannula 2.0 06/20/16 20:20 95 Nasal Cannula 2.0 06/20/16 19:48 36.7 83 18 118/60 95 Nasal Cannula 2.0 06/20/16 16:00 Nasal Cannula 2.0 06/20/16 15:54 36.6 81 18 113/59 100 Nasal Cannula 2.0 06/20/16 12:34 36.6 76 16 95/47 100 Nasal Cannula 2.0 06/20/16 12:00 Nasal Cannula 2.0 06/20/16 10:00 96 24-Hour Column 06/21/16 07:59 Intake Total 520 ml Balance 520 ml General Appearance: WD/WN, no apparent distress (on chronic 02NC 2L) Eyes: EOMI ENT: hearing grossly normal Neck: supple Respiratory/Chest: no respiratory distress, + decreased breath sounds Cardiovascular: regular rate, rhythm, no edema Abdomen: normal bowel sounds, non tender, soft Extremities: no pedal edema, + pertinent finding (avf LUE) Neurologic/Psych: alert, normal mood/affect, oriented x 3 Skin: no jaundice, warm/dry, no rash Diagnostics Last 24 Hours Test 06/20/16 11:54 06/20/16 15:59 06/20/16 17:58 06/20/16 20:26 Bedside Glucose 111 mg/dl 89 mg/dl 85 mg/dl 74 mg/dl Test 06/21/16 00:49 06/21/16 03:50 06/21/16 07:30 Bedside Glucose 78 mg/dl 82 mg/dl Diagnostic Radiology: CXR > mild HF TTE 2016 EF 45%; moderate wall motion abnormality involving mid apical septum, apical inferior wall segments; moderate aortic stenosis; PASP 60 mmHg, severe TR, dilated IVC. EGD as above Assessment & Plan 81 y/o F w/ chronic systolic HF, recent endocarditis, COPD on 2L 02NC, ESRD recovering after emergent EGD to remove esophageal food bolus. ESRD -routine tx today w/ goal 1-1.5L uf -STEVE meds, renal vitamin appropriately continued Anemia of chronic disease -no maintenance heparin w/ tx given recent procedure; hgb above criteria for epo but will monitor closely HTN -agree w/ stopping norvasc and hydralazine at d/c; cont other bp meds from admission and monitor bp at HD Esophageal stenosis/esophagitis -repeat EGD today w/ further recs per GI Recent endocarditis -primary service to ensure inf dzs has input on this Appreciate consult; will follow with you. Care coordinated w/ Dr Mosehr.
--- NOTE | 2016-06-21 17:10 | Dialysis Progress Note ---
Nephrology Dialysis Note Date of Service: June 21, 2016. Subjective seen on HD 1030 AM today; no complaints; tolerating tx. for EGD later today. Objective Date Time Temp Pulse Resp B/P Pulse Ox O2 Delivery O2 Flow Rate FiO2 06/21/16 15:40 37.1 80 20 113/54 99 2.0 06/21/16 13:46 36.4 77 133/64 06/21/16 13:35 36.6 84 124/66 18 Room Air 06/21/16 13:30 Nasal Cannula 2.0 06/21/16 12:40 77 133/66 06/21/16 12:30 75 123/58 06/21/16 12:15 76 122/57 06/21/16 12:00 78 136/64 06/21/16 11:45 78 132/62 06/21/16 11:30 74 128/61 06/21/16 11:15 77 127/63 06/21/16 11:00 79 126/61 06/21/16 10:45 76 120/58 06/21/16 10:30 77 126/65 06/21/16 10:15 78 134/59 06/21/16 10:00 76 129/59 06/21/16 09:45 75 125/61 06/21/16 09:30 103 107/61 06/21/16 09:15 99 119/68 06/21/16 09:07 102 119/67 06/21/16 09:05 36.8 104 121/72 06/21/16 08:00 Nasal Cannula 2.0 06/21/16 07:54 36.5 110 20 125/77 98 Room Air 06/21/16 04:30 Nasal Cannula 2.0 06/21/16 03:48 36.8 82 17 131/64 97 Nasal Cannula 2.0 06/21/16 00:30 97 2.0 06/21/16 00:30 97 Nasal Cannula 2.0 06/21/16 00:10 36.8 80 18 115/61 97 Nasal Cannula 2.0 06/20/16 20:20 95 Nasal Cannula 2.0 06/20/16 19:48 36.7 83 18 118/60 95 Nasal Cannula 2.0 Physical Exam: General-on 02nc, nad, oriented x 3 Eyes-eomi ENT-dry mm Neck-supple Lungs-diminished Heart-RRR; no edema Abdomen-soft nt no regan +BS Extremities-AVF LUE prox + t/b; no edema Neuro-ludwig, fluent speech Current Inpatient Medications Medications (Trade) Dose Ordered Sig/Claudette Route Start Time Stop Time Status Last Admin Dose Admin Ondansetron HCl (Zofran Inj) 4 mg ONE PRN IV 06/19/16 22:45 Miscellaneous (Iv Fluids Completed) 1 ea PRN PRN N/A 06/19/16 22:45 06/19/17 22:44 Acetaminophen (Tylenol Tab) 650 mg Q4H PRN PO 06/19/16 23:15 07/19/16 23:14 Nitroglycerin (Nitrostat Tab) 0.4 mg UD PRN SL 06/19/16 23:15 07/19/16 23:14 Insulin Aspart (novoLOG ASPART) SLIDING SCALE If C... ACHS SC 06/20/16 07:00 07/20/16 06:59 Glucose (Glucose 40% Gel) 15-30 GRAMS 15 GRAMS... UD PRN PO 06/19/16 23:15 07/19/16 23:14 Glucose (Glucose Chew Tab) 4-8 Tablets 4 Tabl... UD PRN PO 06/19/16 23:15 07/19/16 23:14 Dextrose (Dextrose 50% 50ML Syringe) 25-50ML OF 50% DW IV FOR... UD PRN IV 06/19/16 23:15 07/19/16 23:14 06/21/16 13:43 50 ML Glucagon (Glucagon Inj) 1 mg UD PRN SQ 06/19/16 23:15 07/19/16 23:14 Ondansetron HCl (Zofran Inj) 4 mg Q6H PRN IV 06/19/16 23:15 07/19/16 23:14 06/20/16 16:34 4 MG Amlodipine Besylate (Norvasc Tab) 2.5 mg DAILY PO 06/20/16 09:00 07/20/16 08:59 06/20/16 07:37 2.5 MG Atorvastatin Calcium (Lipitor Tab) 10 mg HS PO 06/20/16 21:00 07/20/16 20:59 Vitamin B Complex/ Vit C/Folic Acid (Nephrocaps) 1 cap QPM PO 06/20/16 21:00 07/20/16 20:59 Carvedilol (Coreg Tab) 6.25 mg BID PO 06/20/16 09:00 07/20/16 08:59 06/20/16 07:36 6.25 MG Furosemide (Lasix Tab) 80 mg DAILY PO 06/20/16 09:00 07/20/16 08:59 06/20/16 07:37 80 MG Hydralazine HCl (Apresoline Tab) 25 mg TID PO 06/20/16 09:00 07/20/16 08:59 06/21/16 13:50 25 MG Acetaminophen/ Hydrocodone Bitart ([place] 5/325 Tab) 1 tab Q4H PRN PO 06/19/16 23:15 07/03/16 23:14 06/21/16 07:54 1 TAB Isosorbide Dinitrate (Isordil Tab) 20 mg TID@0700,1200,1700 PO 06/20/16 07:00 07/20/16 06:59 06/21/16 12:00 20 MG Levothyroxine Sodium (Synthroid Tab) 50 mcg DAILYBB PO 06/20/16 06:00 07/20/16 05:59 06/20/16 06:03 50 MCG Losartan Potassium (coZAAR TAB) 25 mg DAILY PO 06/20/16 09:00 07/20/16 08:59 06/20/16 07:38 25 MG Sevelamer HCl (Renagel Tab) 2,400 mg TIDM PO 06/20/16 07:30 07/20/16 07:59 06/20/16 11:54 2,400 MG Aspirin (Ecotrin Tab) 81 mg QAM PO 06/20/16 09:00 07/20/16 08:59 06/20/16 07:40 81 MG Ipratropium [place] (Atrovent 0.02% 0.5MG/2.5ML Neb) 0.5 mg Q4H PRN INH 06/19/16 23:45 07/19/16 23:44 Levalbuterol (Xopenex 1.25MG/ 0.5ML Neb) 1.25 mg Q4H PRN INH 06/19/16 23:45 07/19/16 23:44 Hydromorphone HCl 0.5 mg 0.5 mg Q4H PRN IV 06/20/16 00:00 07/04/16 00:00 Pantoprazole Sodium 40 mg/ Syringe 10 ml @ 5 mls/min BID@0900,2100 IV 06/21/16 09:00 07/21/16 08:59 06/21/16 07:53 5 MLS/MIN Dextrose/Sodium Chloride (D5W And Nss) 1,000 ml @ 20 mls/hr Q24H IV 06/20/16 19:45 07/20/16 19:44 06/20/16 20:30 20 MLS/HR Bisacodyl (Dulcolax Supp) 10 mg DAILY PRN [place] 06/21/16 06:15 07/21/16 06:14 06/21/16 06:41 10 MG Heparin Sodium (Porcine) (Heparin Iv Bolus) 1,000 unit TODAY@0800 IV 06/21/16 08:00 06/21/16 23:59 Last 24 Hours Test 06/20/16 17:58 06/20/16 20:26 06/21/16 00:49 06/21/16 03:50 Bedside Glucose 85 mg/dl 74 mg/dl 78 mg/dl 82 mg/dl Test 06/21/16 07:30 06/21/16 13:36 06/21/16 14:38 06/21/16 15:41 Sodium Level 136 mmol/L Potassium Level 5.4 mmol/L Chloride Level 103 mmol/L Carbon Dioxide Level 23 mmol/L Anion Gap 10.0 mmol/L Blood Urea Nitrogen 50 mg/dl Creatinine 5.70 mg/dl Est Creatinine Clear Calc Drug Dose 5.9 ml/min Estimated GFR () 7.4 Estimated GFR (Non- 6.3 BUN/Creatinine Ratio 8.8 Random Glucose 79 mg/dl Calcium Level 8.4 mg/dl Bedside Glucose 67 mg/dl 118 mg/dl 92 mg/dl Assessment & Plan 81 y/o F w/ chronic systolic HF, recent endocarditis, COPD on 2L 02NC, ESRD recovering after emergent EGD to remove esophageal food bolus. ESRD -routine tx today w/ goal 1-1.5L uf -STEVE meds, renal vitamin appropriately continued -next HD tentatively for 06/23 or as clinical situation dictates Anemia of chronic disease -no maintenance heparin w/ tx given recent procedure; hgb above criteria for epo but will monitor closely HTN -agree w/ stopping norvasc and hydralazine for now; cont other bp meds from admission and monitor bp at HD Esophageal stenosis/esophagitis -repeat EGD today w/ further recs per GI Recent endocarditis -primary service to ensure inf dzs has input on this Appreciate consult; will follow with you. Care coordinated w/ Dr Mosher.
[2016-06-21] MEDS ORDERED: CEPHALEXIN MONOHYDRATE 250 MG CAP PO SCH (20:00)
[2016-06-21] MEDS ORDERED: CEPHALEXIN SUSP 250 MG/5 ML UDP PO SCH (21:00)
[2016-06-21] MEDS: CEPHALEXIN SUSP 250 MG/5 ML UDP PO SCH ×2 (22:05→22:29)
[2016-06-21] MEDS: NEPHROCAPS PO SCH ×2 (22:06→22:18)
[2016-06-21] MEDS: ATORVASTATIN 10 MG TAB PO SCH (22:06)
[2016-06-22] VITALS (7 sets, daily range): BP systolic 111–139; BP diastolic 57–69; PULSE 28–80; TEMP 36.5–37.1; O2SAT 98–100
[2016-06-22] MEDS: LEVOTHYROXINE 50 MCG TAB PO SCH (06:00)
[2016-06-22] MEDS: INSULIN ASPART 100 UNITS/ML 3 ML PEN SC SCH ×4 (07:00→21:00)
[2016-06-22] MEDS: HYDROCODONE/ACETAMOPHEN 5/325MG TAB PO PRN ×2 (07:30→13:21)
[2016-06-22] MEDS: SEVELAMER HYDROCH 800 MG TAB PO SCH ×2 (07:30→11:17)
[2016-06-22] MEDS ORDERED: D5W AND NSS 1,000 ML IV SCH (08:00)
[2016-06-22 08:45] LABS: BUN/CREATININE RATIO 5.8 (10-20); CALCIUM 8.3 mg/dl (8.5-10.1); CREATININE 3.7 mg/dl (0.60-1.20); POTASSIUM 4.1 mmol/L (3.5-5.1)
[2016-06-22] MEDS: LOSARTAN POTASSIUM 25 MG TAB PO SCH (09:00)
--- NOTE | 2016-06-22 09:16 | Progress Note ---
Medicine Progress Note Date & Time of Visit: June 22, 2016 at 09:13. Subjective patient seen resting in bedside chair watching tv states she feels fine overall feels "full" but no nausea, vomiting, chest pain, abdominal pain no dizziness, dyspnea, palpitations no other symptoms Objective Last 8 Hrs Date Time Temp Pulse Resp B/P Pulse Ox O2 Delivery O2 Flow Rate FiO2 06/22/16 08:59 36.8 82 20 126/76 100 Nasal Cannula 2 06/22/16 07:31 36.6 80 18 139/68 99 Nasal Cannula 2.0 06/22/16 06:12 36.5 76 15 125/65 99 Room Air 2.0 06/22/16 04:02 36.5 76 15 125/65 99 Room Air 2.0 06/22/16 04:00 Nasal Cannula 2.0 Physical Exam: General- oriented x 3, not in distress, speaks in sentences with no effort/acc muscles Neck- no JVD Lungs- clear BS bilaterally Heart- normal rate, regular rhythm; no murmurs Abdomen- normal bowel sounds, non distended, soft, nontender Extremities- no pretibial edema, no calf tenderness Neuro- alert, oriented x 3; no gross focal neuro deficits Skin- warm & dry Laboratory Results: Last 24 Hours Test 06/21/16 13:36 06/21/16 14:38 06/21/16 15:41 06/21/16 19:52 Bedside Glucose 67 mg/dl 118 mg/dl 92 mg/dl 162 mg/dl Test 06/22/16 00:08 06/22/16 04:03 06/22/16 07:20 06/22/16 08:38 Bedside Glucose 79 mg/dl 78 mg/dl 79 mg/dl Sodium Level 137 mmol/L Potassium Level 4.1 mmol/L Chloride Level 101 mmol/L Carbon Dioxide Level 27 mmol/L Anion Gap 9.0 mmol/L Blood Urea Nitrogen 22 mg/dl Creatinine 3.70 mg/dl Est Creatinine Clear Calc Drug Dose 9.1 ml/min Estimated GFR () 12.4 Estimated GFR (Non- 10.7 BUN/Creatinine Ratio 5.8 Random Glucose 78 mg/dl Calcium Level 8.3 mg/dl Assessment & Plan 81 year old female with history of ESRD, CAD, CHF, DM, HTN, Chronic Respiratory Failure on Oxygen, COPD, presenting with PVCs. FOOD BOLUS IMPACTION, ESOPHAGEAL STENOSIS WITH GASTRITIS, DUODENITIS s/p EGD 06/19/16 - evaluated by Dr. Wang -Impression: - Food in the upper third of the esophagus, in the middle third of the esophagus and in the lower third of the esophagus. Removal was successful. - LA Grade C reflux esophagitis. - Esophageal stenosis. - Gastritis. - Duodenitis. Recommendation: - Discharge patient to home (with escort). - Full liquid diet for 2 weeks. No meat, no vegetables. Only pureed and foods that can be eaten with a spoon. - Use Prilosec (omeprazole) 40 mg PO BID. - Repeat procedure in 3-4 weeks for dilation, full inspection to eliminate possibility of mass that was masked by food particles and inflammation. -- had recurrence of symptoms 06/20/16 for repeat EGD with dilation NPO for now -- will need to crush all medications PVC seen on initial EKG asymptomatic repeat EKG improved electrolytes ok -- continues to be asymptomatic Chronic systolic heart failure secondary to ischemic cardiomyopathy sp ICD EF 45-50% -- no signs of overt overload appears euvolemic -- continue usual medications HD per Nephrology today CAD/CVA -- no cardiac symptoms Chronic resp failure to COPD on home O2 past tobacco abuse -- no signs of exacerbation HTN stable PAF, px NSR off coumadin since 2010 due to occult GI bleed/px preference as per records Chronic left bundle branch block PE off coumadin ESRD HD per Nephrology DM2 diet well-controlled as of recent outpatient HgA1c (4.6 in December 2015) Recent hx MSSA endocarditis sp ICD/dialysis catheter removal (03/2016, [facility]) s/p completion of antibiotic rx - discussed with ID - recommend Cephalexin PO for suppressive therapy Disposition pending PT/OT eval Current Inpatient Medications: Current Inpatient Medications Medications (Trade) Dose Ordered Sig/Claudette Route Start Time Stop Time Status Last Admin Dose Admin Ondansetron HCl (Zofran Inj) 4 mg ONE PRN IV 06/19/16 22:45 Miscellaneous (Iv Fluids Completed) 1 ea PRN PRN N/A 06/19/16 22:45 06/19/17 22:44 Acetaminophen (Tylenol Tab) 650 mg Q4H PRN PO 06/19/16 23:15 07/19/16 23:14 Nitroglycerin (Nitrostat Tab) 0.4 mg UD PRN SL 06/19/16 23:15 07/19/16 23:14 Insulin Aspart (novoLOG ASPART) SLIDING SCALE If C... ACHS SC 06/20/16 07:00 07/20/16 06:59 Glucose (Glucose 40% Gel) 15-30 GRAMS 15 GRAMS... UD PRN PO 06/19/16 23:15 07/19/16 23:14 Glucose (Glucose Chew Tab) 4-8 Tablets 4 Tabl... UD PRN PO 06/19/16 23:15 07/19/16 23:14 Dextrose (Dextrose 50% 50ML Syringe) 25-50ML OF 50% DW IV FOR... UD PRN IV 06/19/16 23:15 07/19/16 23:14 06/21/16 13:43 50 ML Glucagon (Glucagon Inj) 1 mg UD PRN SQ 06/19/16 23:15 07/19/16 23:14 Ondansetron HCl (Zofran Inj) 4 mg Q6H PRN IV 06/19/16 23:15 07/19/16 23:14 06/20/16 16:34 4 MG Amlodipine Besylate (Norvasc Tab) 2.5 mg DAILY PO 06/20/16 09:00 07/20/16 08:59 06/20/16 07:37 2.5 MG Atorvastatin Calcium (Lipitor Tab) 10 mg HS PO 06/20/16 21:00 07/20/16 20:59 06/21/16 22:06 10 MG Vitamin B Complex/ Vit C/Folic Acid (Nephrocaps) 1 cap QPM PO 06/20/16 21:00 07/20/16 20:59 Carvedilol (Coreg Tab) 6.25 mg BID PO 06/20/16 09:00 07/20/16 08:59 06/21/16 22:05 6.25 MG Furosemide (Lasix Tab) 80 mg DAILY PO 06/20/16 09:00 07/20/16 08:59 06/20/16 07:37 80 MG Hydralazine HCl (Apresoline Tab) 25 mg TID PO 06/20/16 09:00 07/20/16 08:59 06/21/16 22:04 25 MG Acetaminophen/ Hydrocodone Bitart ([place] 5/325 Tab) 1 tab Q4H PRN PO 06/19/16 23:15 07/03/16 23:14 06/21/16 23:50 1 TAB Isosorbide Dinitrate (Isordil Tab) 20 mg TID@0700,1200,1700 PO 06/20/16 07:00 07/20/16 06:59 06/21/16 17:18 20 MG Levothyroxine Sodium (Synthroid Tab) 50 mcg DAILYBB PO 06/20/16 06:00 07/20/16 05:59 06/20/16 06:03 50 MCG Losartan Potassium (coZAAR TAB) 25 mg DAILY PO 06/20/16 09:00 07/20/16 08:59 06/20/16 07:38 25 MG Sevelamer HCl (Renagel Tab) 2,400 mg TIDM PO 06/20/16 07:30 07/20/16 07:59 06/20/16 11:54 2,400 MG Aspirin (Ecotrin Tab) 81 mg QAM PO 06/20/16 09:00 07/20/16 08:59 06/20/16 07:40 81 MG Ipratropium [place] (Atrovent 0.02% 0.5MG/2.5ML Neb) 0.5 mg Q4H PRN INH 06/19/16 23:45 07/19/16 23:44 Levalbuterol (Xopenex 1.25MG/ 0.5ML Neb) 1.25 mg Q4H PRN INH 06/19/16 23:45 07/19/16 23:44 Hydromorphone HCl 0.5 mg 0.5 mg Q4H PRN IV 06/20/16 00:00 07/04/16 00:00 Pantoprazole Sodium/Syringe (Protonix Inj/ Syringe) 10 ml @ 5 mls/min BID@0900,2100 IV 06/21/16 09:00 07/21/16 08:59 06/21/16 22:04 5 MLS/MIN Bisacodyl (Dulcolax Supp) 10 mg DAILY PRN [place] 06/21/16 06:15 07/21/16 06:14 06/21/16 06:41 10 MG Cephalexin Monohydrate 250 mg 250 mg MoWeFr@2000 PO 06/21/16 21:00 07/05/16 20:59 06/21/16 22:29 250 MG Dextrose/Sodium Chloride (D5W And Nss) 1,000 ml @ 20 mls/hr Q24H IV 06/22/16 08:00 07/22/16 07:59 06/22/16 08:31 20 MLS/HR
[2016-06-22] MEDS ORDERED: LIDOCAINE HCL 2% 2 ML VIAL (20MG/ML) ONE ×2 (09:18→13:02)
[2016-06-22] MEDS ORDERED: ETOMIDATE 2 MG/ML 20 ML VIAL IV ONE (09:18)
[2016-06-22] MEDS ORDERED: PROPOFOL IV EMULSION 10 MG/ML 20 ML VIAL IV ONE ×2 (09:18→13:02)
--- NOTE | 2016-06-22 10:30 | Anesthesiology Progress Note ---
Anesthesia Post Op Note Date & Time June 22, 2016 at 10:29 Vital Signs Pain Intensity: 0.0 Vital Signs Past 12 Hours Date Time Temp Pulse Resp B/P Pulse Ox O2 Delivery O2 Flow Rate FiO2 06/22/16 10:20 77 20 145/70 99 Nasal Cannula 2 06/22/16 10:12 80 20 142/80 95 Nasal Cannula 2 06/22/16 10:00 77 20 120/49 99 Nasal Cannula 2 06/22/16 08:59 36.8 82 20 126/76 100 Nasal Cannula 2 06/22/16 07:31 36.6 80 18 139/68 99 Nasal Cannula 2.0 06/22/16 06:12 36.5 76 15 125/65 99 Room Air 2.0 06/22/16 04:02 36.5 76 15 125/65 99 Room Air 2.0 06/22/16 04:00 Nasal Cannula 2.0 06/21/16 23:59 Nasal Cannula 2.0 06/21/16 23:39 36.9 76 18 114/60 100 Nasal Cannula 2.0 Notes Mental Status: alert / awake / arousable, participated in evaluation Pt Amnestic to Procedure: Yes Nausea / Vomiting: adequately controlled Pain: adequately controlled Airway Patency, RR, SpO2: stable & adequate BP & HR: stable & adequate Hydration State: stable & adequate Anesthetic Complications: no major complications apparent Pt doing well.
[2016-06-22] MEDS: ISOSORBIDE DINITRATE 20 MG TAB PO SCH ×3 (11:11→17:38)
[2016-06-22] MEDS: PANTOprazole INJ 40 MG in SYRINGE 0 ML IV SCH ×2 (11:11→20:31)
[2016-06-22] MEDS: AMLODIPINE BESYLATE 5 MG TAB PO SCH (11:12)
[2016-06-22] MEDS: FUROSEMIDE 80 MG TAB PO SCH (11:13)
[2016-06-22] MEDS: ASPIRIN 81 MG ECTAB PO SCH (11:13)
[2016-06-22] MEDS: CARVEDILOL 6.25 MG TAB PO SCH ×2 (11:14→20:30)
[2016-06-22] MEDS ORDERED: CALCIUM ACETATE 667 MG/5 ML PO PRN (17:30)
[2016-06-22] MEDS: NEPHROCAPS PO SCH (20:31)
[2016-06-22] MEDS: ATORVASTATIN 10 MG TAB PO SCH (20:32)
[2016-06-23] VITALS (12 sets, daily range): BP systolic 107–131; BP diastolic 53–73; PULSE 73–88; TEMP 36.4–37.3; O2SAT 94–99
[2016-06-23 06:34] LABS: BASO % 0.2 %; BASO ABS # 0.01 K/uL (0-0.2); COMPLETE YES; EOS % 5.7 %; HEMATOCRIT 36.9 % (37-47); IG% 0.2 %; LYMPH % 13.2 %; LYMPH ABS # 0.67 K/uL (1.2-3.4); MEAN CELL VOLUME 98.1 fL (80-100); MEAN CORPUSCULAR HEMOGLOBIN 28.5 pg (25-34); MEAN PLATELET VOLUME 9.5 fL (7.4-10.4); MONO % 12.5 %; NEUT % 68.2 %; PLATELET COUNT 148 K/uL (130-400); RED BLOOD COUNT 3.76 M/uL (4.2-5.4); WHITE BLOOD COUNT 5.06 K/uL (4.8-10.8)
[2016-06-23] MEDS: CALCIUM ACETATE 667 MG/5 ML PO SCH ×3 (06:36→16:15)
[2016-06-23] MEDS: ISOSORBIDE DINITRATE 20 MG TAB PO SCH ×3 (06:39→21:31)
[2016-06-23] MEDS: LEVOTHYROXINE 50 MCG TAB PO SCH (06:39)
[2016-06-23] MEDS: INSULIN ASPART 100 UNITS/ML 3 ML PEN SC SCH ×4 (07:00→21:00)
[2016-06-23 07:29] LABS: BUN/CREATININE RATIO 6.6 (10-20); CALCIUM 8.1 mg/dl (8.5-10.1); CREATININE 5.7 mg/dl (0.60-1.20); POTASSIUM 4.8 mmol/L (3.5-5.1)
[2016-06-23] MEDS ORDERED: HEPARIN SOD (PORCINE) 1000 UNIT/ML 10 ML VIAL IV SCH (08:00)
[2016-06-23] MEDS: LOSARTAN POTASSIUM 25 MG TAB PO SCH (08:11)
[2016-06-23] MEDS: PANTOprazole INJ 40 MG in SYRINGE 0 ML IV SCH ×2 (08:12→21:26)
[2016-06-23] MEDS: AMLODIPINE BESYLATE 5 MG TAB PO SCH (08:13)
[2016-06-23] MEDS: ASPIRIN 81 MG ECTAB PO SCH (08:13)
[2016-06-23] MEDS: CARVEDILOL 6.25 MG TAB PO SCH ×2 (08:14→21:28)
[2016-06-23] MEDS ORDERED: LIDOCAINE/PRILOCAINE 2.5% EA CRM EXT PRN (09:45)
--- NOTE | 2016-06-23 10:21 | Nephrology Progress Note ---
Nephrology Progress Note Date of Service: June 23, 2016. Subjective no complaints; sitting up in chair; trying out slippery diet; not sob; no N; asking about emla cream for leg; no n/v; anuric x mos/years Objective Date Time Temp Pulse Resp B/P Pulse Ox O2 Delivery O2 Flow Rate FiO2 06/23/16 07:34 36.7 88 20 131/65 94 Nasal Cannula 3.0 06/23/16 04:18 37.0 82 16 126/73 95 2.0 06/23/16 04:00 Nasal Cannula 2.0 06/23/16 00:01 36.7 78 20 118/67 96 2.0 06/22/16 23:59 Nasal Cannula 2.0 06/22/16 20:00 Nasal Cannula 2.0 06/22/16 19:30 37.0 78 18 118/67 100 Nasal Cannula 2.0 06/22/16 16:00 77 06/22/16 16:00 Nasal Cannula 2.0 06/22/16 15:50 37.1 78 20 121/69 98 Nasal Cannula 2.0 06/22/16 12:00 Nasal Cannula 2.0 06/22/16 11:06 36.7 76 28 111/57 98 Nasal Cannula 2.0 06/22/16 10:20 77 20 145/70 99 Nasal Cannula 2 Physical Exam: General-on 02nc, nad, oriented x 3, dosing in chair/wakens fully Eyes-eomi ENT-dry mm Neck-supple Lungs-diminished, w/ bibasilar crackles and kyphotic spine Heart-RRR; no edema Abdomen-soft nt no regan +BS Extremities-AVG LE; trace dependent edema Neuro-ludwig, fluent speech Current Inpatient Medications Medications (Trade) Dose Ordered Sig/Claudette Route Start Time Stop Time Status Last Admin Dose Admin Ondansetron HCl (Zofran Inj) 4 mg ONE PRN IV 06/19/16 22:45 Miscellaneous (Iv Fluids Completed) 1 ea PRN PRN N/A 06/19/16 22:45 06/19/17 22:44 Acetaminophen (Tylenol Tab) 650 mg Q4H PRN PO 06/19/16 23:15 07/19/16 23:14 Nitroglycerin (Nitrostat Tab) 0.4 mg UD PRN SL 06/19/16 23:15 07/19/16 23:14 Insulin Aspart (novoLOG ASPART) SLIDING SCALE If C... ACHS SC 06/20/16 07:00 07/20/16 06:59 Glucose (Glucose 40% Gel) 15-30 GRAMS 15 GRAMS... UD PRN PO 06/19/16 23:15 07/19/16 23:14 Glucose (Glucose Chew Tab) 4-8 Tablets 4 Tabl... UD PRN PO 06/19/16 23:15 07/19/16 23:14 Dextrose (Dextrose 50% 50ML Syringe) 25-50ML OF 50% DW IV FOR... UD PRN IV 06/19/16 23:15 07/19/16 23:14 06/21/16 13:43 50 ML Glucagon (Glucagon Inj) 1 mg UD PRN SQ 06/19/16 23:15 07/19/16 23:14 Ondansetron HCl (Zofran Inj) 4 mg Q6H PRN IV 06/19/16 23:15 07/19/16 23:14 06/20/16 16:34 4 MG Amlodipine Besylate (Norvasc Tab) 2.5 mg DAILY PO 06/20/16 09:00 07/20/16 08:59 06/23/16 08:13 2.5 MG Atorvastatin Calcium (Lipitor Tab) 10 mg HS PO 06/20/16 21:00 07/20/16 20:59 06/22/16 20:32 10 MG Vitamin B Complex/ Vit C/Folic Acid (Nephrocaps) 1 cap QPM PO 06/20/16 21:00 07/20/16 20:59 06/22/16 20:31 1 CAP Carvedilol (Coreg Tab) 6.25 mg BID PO 06/20/16 09:00 07/20/16 08:59 06/23/16 08:14 6.25 MG Furosemide (Lasix Tab) 80 mg DAILY PO 06/20/16 09:00 07/20/16 08:59 06/22/16 11:13 80 MG Hydralazine HCl (Apresoline Tab) 25 mg TID PO 06/20/16 09:00 07/20/16 08:59 06/23/16 08:14 25 MG Acetaminophen/ Hydrocodone Bitart ([place] 5/325 Tab) 1 tab Q4H PRN PO 06/19/16 23:15 07/03/16 23:14 06/22/16 13:21 1 TAB Isosorbide Dinitrate (Isordil Tab) 20 mg TID@0700,1200,1700 PO 06/20/16 07:00 07/20/16 06:59 06/23/16 06:39 20 MG Levothyroxine Sodium (Synthroid Tab) 50 mcg DAILYBB PO 06/20/16 06:00 07/20/16 05:59 06/23/16 06:39 50 MCG Losartan Potassium (coZAAR TAB) 25 mg DAILY PO 06/20/16 09:00 07/20/16 08:59 06/23/16 08:11 25 MG Aspirin (Ecotrin Tab) 81 mg QAM PO 06/20/16 09:00 07/20/16 08:59 06/23/16 08:13 81 MG Ipratropium [place] (Atrovent 0.02% 0.5MG/2.5ML Neb) 0.5 mg Q4H PRN INH 06/19/16 23:45 07/19/16 23:44 Levalbuterol (Xopenex 1.25MG/ 0.5ML Neb) 1.25 mg Q4H PRN INH 06/19/16 23:45 07/19/16 23:44 Hydromorphone HCl 0.5 mg 0.5 mg Q4H PRN IV 06/20/16 00:00 07/04/16 00:00 Pantoprazole Sodium/Syringe (Protonix Inj/ Syringe) 10 ml @ 5 mls/min BID@0900,2100 IV 06/21/16 09:00 07/21/16 08:59 06/23/16 08:12 5 MLS/MIN Bisacodyl (Dulcolax Supp) 10 mg DAILY PRN [place] 06/21/16 06:15 07/21/16 06:14 06/21/16 06:41 10 MG Cephalexin Monohydrate (Keflex Susp) 500 mg DAILY@2000 PO 06/23/16 20:00 07/07/16 19:59 Calcium Acetate (Phoslyra Soln) 2,001 mg AC PO 06/23/16 07:00 07/23/16 06:59 06/23/16 06:36 2,001 MG Calcium Acetate (Phoslyra Soln) 667 mg UD PRN PO 06/22/16 17:30 07/22/16 17:29 Heparin Sodium (Porcine) (Heparin Iv Bolus) 1,000 unit TODAY@0800 IV 06/23/16 08:00 06/23/16 23:59 Heparin Sodium (Porcine) (Heparin Iv Bolus) 400 unit TODAY@0800,0900,1000 IV 06/23/16 08:00 06/23/16 23:59 Lidocaine/ Prilocaine (Emla 2.5% Crm) 1 ea UD PRN EXT 06/23/16 09:45 07/23/16 09:44 Last 24 Hours Test 06/22/16 11:24 06/22/16 15:56 06/22/16 20:09 06/23/16 06:17 Bedside Glucose 78 mg/dl 91 mg/dl 98 mg/dl White Blood Count 5.06 K/uL Red Blood Count 3.76 M/uL Hemoglobin 10.7 g/dL Hematocrit 36.9 % Mean Corpuscular Volume 98.1 fL Mean Corpuscular Hemoglobin 28.5 pg Mean Corpuscular Hemoglobin Concent 29.0 g/dl Platelet Count 148 K/uL Mean Platelet Volume 9.5 fL Neutrophils (%) (Auto) 68.2 % Lymphocytes (%) (Auto) 13.2 % Monocytes (%) (Auto) 12.5 % Eosinophils (%) (Auto) 5.7 % Basophils (%) (Auto) 0.2 % Neutrophils # (Auto) 3.45 K/uL Lymphocytes # (Auto) 0.67 K/uL Monocytes # (Auto) 0.63 K/uL Eosinophils # (Auto) 0.29 K/uL Basophils # (Auto) 0.01 K/uL RDW Standard Deviation 62.6 fL RDW Coefficient of Variation 17.4 % Immature Granulocyte % (Auto) 0.2 % Immature Granulocyte # (Auto) 0.01 K/uL Sodium Level 137 mmol/L Potassium Level 4.8 mmol/L Chloride Level 102 mmol/L Carbon Dioxide Level 27 mmol/L Anion Gap 8.0 mmol/L Blood Urea Nitrogen 37 mg/dl Creatinine 5.70 mg/dl Est Creatinine Clear Calc Drug Dose 5.9 ml/min Estimated GFR () 7.4 Estimated GFR (Non- 6.3 BUN/Creatinine Ratio 6.6 Random Glucose 77 mg/dl Calcium Level 8.1 mg/dl Test 06/23/16 06:41 Bedside Glucose 80 mg/dl Assessment & Plan 81 y/o F w/ chronic systolic HF, recent endocarditis, COPD on 2L 02NC, ESRD recovering after emergent EGD to remove esophageal food bolus. ESRD -routine tx today w/ goal 1-1.5L uf -STEVE meds changed to liquid, renal vitamin appropriately continued -next HD tentatively for 06/25 after today or as clinical situation dictates -stopped lasix >>>need to see about getting liquid phoslo at d/c Anemia of chronic disease -no maintenance heparin w/ tx given recent procedure; hgb remains above criteria for epo but will monitor closely HTN -cont to hold norvasc and hydralazine for now; cont other bp meds from admission and monitor bp at HD Esophageal stenosis/esophagitis -futher recs per GI Recent endocarditis -primary service to ensure inf dzs has input on this > on po keflex Appreciate consult; will follow with you.
[2016-06-23 16:23] LABS: HEPATITIS B AB NEG
[2016-06-23] MEDS ORDERED: CEPHALEXIN SUSP 250 MG/5 ML UDP PO SCH (20:00)
[2016-06-23] MEDS ORDERED: CEPHALEXIN SUSP 250 MG/5 ML 100 ML PO SCH (20:00)
[2016-06-23] MEDS: NEPHROCAPS PO SCH (21:27)
[2016-06-23] MEDS: ATORVASTATIN 10 MG TAB PO SCH (21:27)
--- NOTE | 2016-06-23 22:30 | Progress Note ---
Medicine Progress Note Date & Time of Visit: June 23, 2016 at 22:28. Subjective s/p HD tolerated well seen resting in bed, watching tv states she feels fine overall tolerating diet well no abdominal pain, nausea no other complaints Objective Last 8 Hrs Date Time Temp Pulse Resp B/P Pulse Ox O2 Delivery O2 Flow Rate FiO2 06/23/16 19:57 37.3 82 16 129/57 99 Nasal Cannula 2.0 06/23/16 18:15 36.4 74 122/66 06/23/16 16:30 78 117/55 06/23/16 16:19 76 107/53 06/23/16 16:01 36.4 77 20 120/56 99 Nasal Cannula 3.0 06/23/16 16:00 Nasal Cannula 2.0 06/23/16 15:26 73 115/64 06/23/16 15:20 36.8 73 115/64 Physical Exam: General- oriented x 3, not in distress, speaks in sentences with no effort/acc muscles Lungs- clear breath sounds bilaterally Heart- normal rate, regular rhythm; no murmurs Abdomen- normal bowel sounds, non distended, soft, nontender Extremities- no pretibial edema, no calf tenderness Neuro- alert, oriented x 3; no gross focal neuro deficits Skin- warm & dry Laboratory Results: Last 24 Hours Test 06/23/16 06:17 06/23/16 06:41 06/23/16 11:39 06/23/16 15:10 White Blood Count 5.06 K/uL Red Blood Count 3.76 M/uL Hemoglobin 10.7 g/dL Hematocrit 36.9 % Mean Corpuscular Volume 98.1 fL Mean Corpuscular Hemoglobin 28.5 pg Mean Corpuscular Hemoglobin Concent 29.0 g/dl Platelet Count 148 K/uL Mean Platelet Volume 9.5 fL Neutrophils (%) (Auto) 68.2 % Lymphocytes (%) (Auto) 13.2 % Monocytes (%) (Auto) 12.5 % Eosinophils (%) (Auto) 5.7 % Basophils (%) (Auto) 0.2 % Neutrophils # (Auto) 3.45 K/uL Lymphocytes # (Auto) 0.67 K/uL Monocytes # (Auto) 0.63 K/uL Eosinophils # (Auto) 0.29 K/uL Basophils # (Auto) 0.01 K/uL RDW Standard Deviation 62.6 fL RDW Coefficient of Variation 17.4 % Immature Granulocyte % (Auto) 0.2 % Immature Granulocyte # (Auto) 0.01 K/uL Sodium Level 137 mmol/L Potassium Level 4.8 mmol/L Chloride Level 102 mmol/L Carbon Dioxide Level 27 mmol/L Anion Gap 8.0 mmol/L Blood Urea Nitrogen 37 mg/dl Creatinine 5.70 mg/dl Est Creatinine Clear Calc Drug Dose 5.9 ml/min Estimated GFR () 7.4 Estimated GFR (Non- 6.3 BUN/Creatinine Ratio 6.6 Random Glucose 77 mg/dl Calcium Level 8.1 mg/dl Bedside Glucose 80 mg/dl 88 mg/dl Hepatitis B Surface Antigen NEG Hepatitis B Surface Antibody NEG Test 06/23/16 16:22 06/23/16 20:32 Bedside Glucose 75 mg/dl 126 mg/dl Assessment & Plan 81 year old female with history of ESRD, CAD, CHF, DM, HTN, Chronic Respiratory Failure on Oxygen, COPD, presenting with PVCs. FOOD BOLUS IMPACTION, ESOPHAGEAL STENOSIS WITH GASTRITIS, DUODENITIS s/p EGD 06/19/16 - evaluated by Dr. Wang -Impression: - Food in the upper third of the esophagus, in the middle third of the esophagus and in the lower third of the esophagus. Removal was successful. - LA Grade C reflux esophagitis. - Esophageal stenosis. - Gastritis. - Duodenitis. Recommendation: - Discharge patient to home (with escort). - Full liquid diet for 2 weeks. No meat, no vegetables. Only pureed and foods that can be eaten with a spoon. - Use Prilosec (omeprazole) 40 mg PO BID. - Repeat procedure in 3-4 weeks for dilation, full inspection to eliminate possibility of mass that was masked by food particles and inflammation. -- had recurrence of symptoms 06/20/16 s/p repeat EGD with dilation no symptoms since -- continue mechanical soft diet -- will need to crush all medications PVC seen on initial EKG asymptomatic repeat EKG improved electrolytes ok -- continues to be asymptomatic Chronic systolic heart failure secondary to ischemic cardiomyopathy sp ICD EF 45-50% -- no signs of overt overload appears euvolemic -- continue usual medications HD per Nephrology today CAD/CVA -- no cardiac symptoms Chronic resp failure to COPD on home O2 past tobacco abuse -- no signs of exacerbation HTN stable PAF, px NSR off coumadin since 2010 due to occult GI bleed/px preference as per records Chronic left bundle branch block PE off coumadin ESRD HD per Nephrology DM2 diet well-controlled as of recent outpatient HgA1c (4.6 in December 2015) Recent hx MSSA endocarditis sp ICD/dialysis catheter removal (03/2016, [facility]) s/p completion of antibiotic rx - discussed with ID - recommend Cephalexin PO for suppressive therapy Disposition anticipate d/c home tomorrow Current Inpatient Medications: Current Inpatient Medications Medications (Trade) Dose Ordered Sig/Claudette Route Start Time Stop Time Status Last Admin Dose Admin Ondansetron HCl (Zofran Inj) 4 mg ONE PRN IV 06/19/16 22:45 Miscellaneous (Iv Fluids Completed) 1 ea PRN PRN N/A 06/19/16 22:45 06/19/17 22:44 Acetaminophen (Tylenol Tab) 650 mg Q4H PRN PO 06/19/16 23:15 07/19/16 23:14 Nitroglycerin (Nitrostat Tab) 0.4 mg UD PRN SL 06/19/16 23:15 07/19/16 23:14 Insulin Aspart (novoLOG ASPART) SLIDING SCALE If C... ACHS SC 06/20/16 07:00 07/20/16 06:59 Glucose (Glucose 40% Gel) 15-30 GRAMS 15 GRAMS... UD PRN PO 06/19/16 23:15 07/19/16 23:14 Glucose (Glucose Chew Tab) 4-8 Tablets 4 Tabl... UD PRN PO 06/19/16 23:15 07/19/16 23:14 Dextrose (Dextrose 50% 50ML Syringe) 25-50ML OF 50% DW IV FOR... UD PRN IV 06/19/16 23:15 07/19/16 23:14 06/21/16 13:43 50 ML Glucagon (Glucagon Inj) 1 mg UD PRN SQ 06/19/16 23:15 07/19/16 23:14 Ondansetron HCl (Zofran Inj) 4 mg Q6H PRN IV 06/19/16 23:15 07/19/16 23:14 06/20/16 16:34 4 MG Amlodipine Besylate (Norvasc Tab) 2.5 mg DAILY PO 06/20/16 09:00 07/20/16 08:59 06/23/16 08:13 2.5 MG Atorvastatin Calcium (Lipitor Tab) 10 mg HS PO 06/20/16 21:00 07/20/16 20:59 06/23/16 21:27 10 MG Vitamin B Complex/ Vit C/Folic Acid (Nephrocaps) 1 cap QPM PO 06/20/16 21:00 07/20/16 20:59 06/23/16 21:27 1 CAP Carvedilol (Coreg Tab) 6.25 mg BID PO 06/20/16 09:00 07/20/16 08:59 06/23/16 21:28 6.25 MG Hydralazine HCl (Apresoline Tab) 25 mg TID PO 06/20/16 09:00 07/20/16 08:59 06/23/16 21:28 25 MG Acetaminophen/ Hydrocodone Bitart ([place] 5/325 Tab) 1 tab Q4H PRN PO 06/19/16 23:15 07/03/16 23:14 06/22/16 13:21 1 TAB Isosorbide Dinitrate (Isordil Tab) 20 mg TID@0700,1200,1700 PO 06/20/16 07:00 07/20/16 06:59 06/23/16 21:31 20 MG Levothyroxine Sodium (Synthroid Tab) 50 mcg DAILYBB PO 06/20/16 06:00 07/20/16 05:59 06/23/16 06:39 50 MCG Losartan Potassium (coZAAR TAB) 25 mg DAILY PO 06/20/16 09:00 07/20/16 08:59 06/23/16 08:11 25 MG Aspirin (Ecotrin Tab) 81 mg QAM PO 06/20/16 09:00 07/20/16 08:59 06/23/16 08:13 81 MG Ipratropium [place] (Atrovent 0.02% 0.5MG/2.5ML Neb) 0.5 mg Q4H PRN INH 06/19/16 23:45 07/19/16 23:44 Levalbuterol (Xopenex 1.25MG/ 0.5ML Neb) 1.25 mg Q4H PRN INH 06/19/16 23:45 6/7/17 23:44 Hydromorphone HCl 0.5 mg 0.5 mg Q4H PRN IV 06/20/16 00:00 07/04/16 00:00 Pantoprazole Sodium/Syringe (Protonix Inj/ Syringe) 10 ml @ 5 mls/min BID@0900,2100 IV 06/21/16 09:00 07/21/16 08:59 06/23/16 21:26 5 MLS/MIN Bisacodyl (Dulcolax Supp) 10 mg DAILY PRN [place] 06/21/16 06:15 07/21/16 06:14 06/21/16 06:41 10 MG Calcium Acetate (Phoslyra Soln) 2,001 mg AC PO 06/23/16 07:00 07/23/16 06:59 06/23/16 06:36 2,001 MG Calcium Acetate (Phoslyra Soln) 667 mg UD PRN PO 06/22/16 17:30 07/22/16 17:29 Heparin Sodium (Porcine) (Heparin Iv Bolus) 1,000 unit TODAY@0800 IV 06/23/16 08:00 06/23/16 23:59 Heparin Sodium (Porcine) (Heparin Iv Bolus) 400 unit TODAY@0800,0900,1000 IV 06/23/16 08:00 06/23/16 23:59 Lidocaine/ Prilocaine (Emla 2.5% Crm) 1 ea UD PRN EXT 06/23/16 09:45 07/23/16 09:44 Cephalexin Monohydrate (Keflex Susp) 10 ml DAILY@2000 PO 06/23/16 20:00 07/07/16 19:59 06/23/16 20:00 10 ML
[2016-06-24] VITALS (7 sets, daily range): BP systolic 108–134; BP diastolic 53–71; PULSE 72–82; TEMP 36.4–37.3; O2SAT 94–100
[2016-06-24] MEDS ORDERED: CALCIUM ACETATE 667 MG/5 ML PO SCH
[2016-06-24] MEDS: ISOSORBIDE DINITRATE 20 MG TAB PO SCH ×2 (06:18→12:42)
[2016-06-24] MEDS: LEVOTHYROXINE 50 MCG TAB PO SCH (06:18)
[2016-06-24] MEDS: HEPARIN SOD (PORCINE) 1000 UNIT/ML 10 ML VIAL IV SCH ×2 (07:36→07:37)
[2016-06-24] MEDS: CALCIUM ACETATE 667 MG/5 ML PO SCH ×2 (07:41→12:42)
[2016-06-24] MEDS: INSULIN ASPART 100 UNITS/ML 3 ML PEN SC SCH ×2 (07:42→11:45)
[2016-06-24] MEDS: CARVEDILOL 6.25 MG TAB PO SCH (07:43)
[2016-06-24] MEDS: AMLODIPINE BESYLATE 5 MG TAB PO SCH (07:44)
[2016-06-24] MEDS: ASPIRIN 81 MG ECTAB PO SCH (07:44)
[2016-06-24 08:03] LABS: BUN/CREATININE RATIO 5.8 (10-20); CALCIUM 7.8 mg/dl (8.5-10.1); CREATININE 4.1 mg/dl (0.60-1.20); POTASSIUM 3.8 mmol/L (3.5-5.1)
[2016-06-24] MEDS: LOSARTAN POTASSIUM 25 MG TAB PO SCH (09:14)
[2016-06-24] MEDS: PANTOprazole INJ 40 MG in SYRINGE 0 ML IV SCH (09:14)
--- NOTE | 2016-06-24 10:53 | Progress Note ---
Medicine Progress Note Date & Time of Visit: June 24, 2016 at 10:46. Subjective seen resting in bed, comfortable, sleeping tolerating diet very well denies abdominal pain, chest pain no nausea denies chest pain, dyspnea, palpitations, dizziness no other symptoms states she is ready and would like to be discharged today Objective Last 8 Hrs Date Time Temp Pulse Resp B/P Pulse Ox O2 Delivery O2 Flow Rate FiO2 06/24/16 07:12 36.9 81 20 108/53 96 Nasal Cannula 2.0 06/24/16 04:11 37.0 72 18 121/59 100 Room Air 06/24/16 04:00 Nasal Cannula Physical Exam: General- oriented x 3, not in distress, speaks in sentences with no effort/acc muscles Lungs- clear breath sounds bilaterally, no rales or wheezing Heart- normal rate, regular rhythm; no murmurs Abdomen- normal bowel sounds, non distended, soft, nontender Extremities- no pretibial edema, no calf tenderness Neuro- alert, oriented x 3; no gross focal neuro deficits Skin- warm & dry Laboratory Results: Last 24 Hours Test 06/23/16 11:39 06/23/16 15:10 06/23/16 16:22 06/23/16 20:32 Bedside Glucose 88 mg/dl 75 mg/dl 126 mg/dl Hepatitis B Surface Antigen NEG Hepatitis B Surface Antibody NEG Test 06/24/16 06:45 06/24/16 06:59 Bedside Glucose 80 mg/dl Sodium Level 137 mmol/L Potassium Level 3.8 mmol/L Chloride Level 103 mmol/L Carbon Dioxide Level 27 mmol/L Anion Gap 7.0 mmol/L Blood Urea Nitrogen 24 mg/dl Creatinine 4.10 mg/dl Est Creatinine Clear Calc Drug Dose 8.2 ml/min Estimated GFR () 11.0 Estimated GFR (Non- 9.5 BUN/Creatinine Ratio 5.8 Random Glucose 94 mg/dl Calcium Level 7.8 mg/dl Assessment & Plan 81 year old female with history of ESRD, CAD, CHF, DM, HTN, Chronic Respiratory Failure on Oxygen, COPD, presenting with PVCs. FOOD BOLUS IMPACTION, ESOPHAGEAL STENOSIS WITH GASTRITIS, DUODENITIS ESOPHAGEAL DYSFUNCTION s/p EGD 06/19/16 - evaluated by Dr. Wang -Impression: - Food in the upper third of the esophagus, in the middle third of the esophagus and in the lower third of the esophagus. Removal was successful. - LA Grade C reflux esophagitis. - Esophageal stenosis. - Gastritis. - Duodenitis. Recommendation: - Discharge patient to home (with escort). - Full liquid diet for 2 weeks. No meat, no vegetables. Only pureed and foods that can be eaten with a spoon. - Use Prilosec (omeprazole) 40 mg PO BID. - Repeat procedure in 3-4 weeks for dilation, full inspection to eliminate possibility of mass that was masked by food particles and inflammation. -- had recurrence of symptoms 06/20/16 s/p repeat EGD with dilation 06/22/16 (+) reflux esophagitis, chronic gastritis no symptoms since, tolerating diet well -- GI recommendations: Protonix 40mg daily advance diet as tolerated ff up with GI PRN -- Speech Therapy Recommendations: 1. SLIPPERY DIET: choose loose, moist, slippery foods; avoid doughy, pasty, dry, thick foods; NO SOFT BREAD, pancakes, etc.; use condiments liberally to make foods slippery 2. SIT FULLY UPRIGHT for all oral intake and for 30-40 minutes after eating 3. Keep head of bed elevated AT LEAST 30-degrees at ALL times (even for sleep) 4. Alternate solids and liquids during meals; use warm beverages and avoid icy cold beverages 5. Eat small amounts more frequently through the day rather than three large meals -- crush all medications for now PVCs seen on initial EKG asymptomatic repeat EKG improved electrolytes ok -- continues to be asymptomatic Chronic systolic heart failure secondary to ischemic cardiomyopathy sp ICD EF 45-50% -- no signs of overt overload appears euvolemic -- continue usual medications HD per Nephrology CAD/CVA -- no cardiac symptoms Chronic resp failure to COPD on home O2 past tobacco abuse -- no signs of exacerbation HTN stable PAF, px NSR off coumadin since 2010 due to occult GI bleed/px preference as per records Chronic left bundle branch block PE off coumadin ESRD HD per Nephrology DM2 diet well-controlled as of recent outpatient HgA1c (4.6 in December 2015) Recent hx MSSA endocarditis sp ICD/dialysis catheter removal (03/2016, [facility]) s/p completion of antibiotic rx - discussed with ID DIONNE Walker - recommend Cephalexin PO daily for suppressive therapy Cephalexin 10ml po daily at 800pm Disposition d/c home today ff up with PCP in 1 week HD per Nephrology Current Inpatient Medications: Current Inpatient Medications Medications (Trade) Dose Ordered Sig/Claudette Route Start Time Stop Time Status Last Admin Dose Admin Ondansetron HCl (Zofran Inj) 4 mg ONE PRN IV 06/19/16 22:45 Miscellaneous (Iv Fluids Completed) 1 ea PRN PRN N/A 06/19/16 22:45 06/19/17 22:44 Acetaminophen (Tylenol Tab) 650 mg Q4H PRN PO 06/19/16 23:15 07/19/16 23:14 06/24/16 00:40 650 MG Nitroglycerin (Nitrostat Tab) 0.4 mg UD PRN SL 06/19/16 23:15 07/19/16 23:14 Insulin Aspart (novoLOG ASPART) SLIDING SCALE If C... ACHS SC 06/20/16 07:00 07/20/16 06:59 Glucose (Glucose 40% Gel) 15-30 GRAMS 15 GRAMS... UD PRN PO 06/19/16 23:15 07/19/16 23:14 Glucose (Glucose Chew Tab) 4-8 Tablets 4 Tabl... UD PRN PO 06/19/16 23:15 07/19/16 23:14 Dextrose (Dextrose 50% 50ML Syringe) 25-50ML OF 50% DW IV FOR... UD PRN IV 06/19/16 23:15 07/19/16 23:14 06/21/16 13:43 50 ML Glucagon (Glucagon Inj) 1 mg UD PRN SQ 06/19/16 23:15 07/19/16 23:14 Ondansetron HCl (Zofran Inj) 4 mg Q6H PRN IV 06/19/16 23:15 07/19/16 23:14 06/20/16 16:34 4 MG Amlodipine Besylate (Norvasc Tab) 2.5 mg DAILY PO 06/20/16 09:00 07/20/16 08:59 06/24/16 07:44 2.5 MG Atorvastatin Calcium (Lipitor Tab) 10 mg HS PO 06/20/16 21:00 07/20/16 20:59 06/23/16 21:27 10 MG Vitamin B Complex/ Vit C/Folic Acid (Nephrocaps) 1 cap QPM PO 06/20/16 21:00 07/20/16 20:59 06/23/16 21:27 1 CAP Carvedilol (Coreg Tab) 6.25 mg BID PO 06/20/16 09:00 07/20/16 08:59 06/24/16 07:43 6.25 MG Hydralazine HCl (Apresoline Tab) 25 mg TID PO 06/20/16 09:00 07/20/16 08:59 06/24/16 07:43 25 MG Acetaminophen/ Hydrocodone Bitart ([place] 5/325 Tab) 1 tab Q4H PRN PO 06/19/16 23:15 07/03/16 23:14 06/22/16 13:21 1 TAB Isosorbide Dinitrate (Isordil Tab) 20 mg TID@0700,1200,1700 PO 06/20/16 07:00 07/20/16 06:59 06/24/16 06:18 20 MG Levothyroxine Sodium (Synthroid Tab) 50 mcg DAILYBB PO 06/20/16 06:00 07/20/16 05:59 06/24/16 06:18 50 MCG Losartan Potassium (coZAAR TAB) 25 mg DAILY PO 06/20/16 09:00 07/20/16 08:59 06/24/16 09:14 25 MG Aspirin (Ecotrin Tab) 81 mg QAM PO 06/20/16 09:00 07/20/16 08:59 06/24/16 07:44 81 MG Ipratropium [place] (Atrovent 0.02% 0.5MG/2.5ML Neb) 0.5 mg Q4H PRN INH 06/19/16 23:45 07/19/16 23:44 Levalbuterol (Xopenex 1.25MG/ 0.5ML Neb) 1.25 mg Q4H PRN INH 06/19/16 23:45 07/19/16 23:44 Hydromorphone HCl 0.5 mg 0.5 mg Q4H PRN IV 06/20/16 00:00 07/04/16 00:00 Pantoprazole Sodium/Syringe (Protonix Inj/ Syringe) 10 ml @ 5 mls/min BID@0900,2100 IV 06/21/16 09:00 07/21/16 08:59 06/24/16 09:14 5 MLS/MIN Bisacodyl (Dulcolax Supp) 10 mg DAILY PRN [place] 06/21/16 06:15 07/21/16 06:14 06/21/16 06:41 10 MG Calcium Acetate (Phoslyra Soln) 2,001 mg AC PO 06/23/16 07:00 07/23/16 06:59 06/24/16 07:41 2,001 MG Calcium Acetate (Phoslyra Soln) 667 mg UD PRN PO 06/22/16 17:30 07/22/16 17:29 Lidocaine/ Prilocaine (Emla 2.5% Crm) 1 ea UD PRN EXT 06/23/16 09:45 07/23/16 09:44 Cephalexin Monohydrate (Keflex Susp) 10 ml DAILY@2000 PO 06/23/16 20:00 07/07/16 19:59 06/23/16 20:00 10 ML
[2016-06-24] MEDS ORDERED: [UNRECOGNIZED DRUG - CODE] PO ×2 (11:12)
[2016-06-24] MEDS ORDERED: LANS30TA3 PO (11:12)
[2016-06-24] MEDS ORDERED: ASPEC81 PO (11:12)
[2016-06-24] MEDS ORDERED: KFLS250100 PO (11:12)
--- NOTE | 2016-06-24 11:24 | Discharge Instructions ---
Discharge Instructions Date of Service June 24, 2016. Admission Reason for Admission: Atrial Ectopy, Weakness Discharge Discharge Diagnosis / Problem: FOOD BOLUS IMPACTION, ESOPHAGEAL STENOSIS Discharge Goals Goal(s): Diagnostic testing, Therapeutic intervention Activity Recommendations Activity Limitations: as noted below (NO HEAVY EXERTION UNTIL RE- EVALUATED BY PRIMARY CARE PHYSICIAN) . Instructions / Follow-Up Instructions / Follow-Up PLEASE REVIEW YOUR NEW MEDICATION LIST AND FOLLOW INSTRUCTIONS CAREFULLY. PLEASE FOLLOW SPEECH THERAPY RECOMMENDATIONS: 1. SLIPPERY DIET: choose loose, moist, slippery foods; avoid doughy, pasty, dry, thick foods; NO SOFT BREAD, pancakes, etc.; use condiments liberally to make foods slippery 2. SIT FULLY UPRIGHT for all oral intake and for 30-40 minutes after eating 3. Keep head of bed elevated AT LEAST 30-degrees at ALL times (even for sleep) 4. Alternate solids and liquids during meals; use warm beverages and avoid icy cold beverages 5. Eat small amounts more frequently through the day rather than three large meals CRUSH ALL MEDICATIONS FOR NOW. FOLLOW UP WITH DR. BOO ON TUESDAY JUNE 28, 2016 AT 11:00AM. FOLLOW UP WITH NEPHROLOGY FOR HEMODIALYSIS. FOLLOW UP WITH GASTROENTROLOGIST NEEDED. Current Hospital Diet Patient's current hospital diet: Renal Diet Discharge Diet Recommended Diet: Renal Diet Diet Texture: Mechanical Soft (ground) Procedures Procedures Performed: Esophagogastroduodenoscopy Pending Studies Studies pending at discharge: no Medical Emergencies . Who to Call and When: Medical Emergencies: If at any time you feel your situation is an emergency, please call 911 immediately. . Non-Emergent Contact Non-Emergency issues call your: Primary Care Provider Call Non-Emergent contact if: you have a fever, you have any medication questions . Past History Medical & Surgical History: (1) Dysphagia (2) Atrial ectopy (3) Weakness (4) Nausea (5) Esophageal stenosis (6) Pacemaker (7) Ischemic cardiomyopathy (8) HTN (hypertension) (9) ESRD (end stage renal disease) on dialysis (10) CHF (congestive heart failure), NYHA class II (11) DM2 (diabetes mellitus, type 2) (12) WANDA (obstructive sleep apnea) (13) LBBB (left bundle branch block) (14) Hypothyroidism (15) HLD (hyperlipidemia) (16) CAD (coronary artery disease) (17) History of TIA/CVA (18) History of atrial fibrillation (19) Head injury due to trauma (20) Hypoxia (21) Generalized weakness (22) S/P cholecystectomy (23) S/P T&A (status post tonsillectomy and adenoidectomy) (24) S/p removal of pelvic structures (25) Reduction of SBO . "Provider Documentation" section prepared by Adolfo Mosher. . VTE Core Measure Inpt VTE Proph given/why not?: SCD's
--- NOTE | 2016-06-24 11:35 | Discharge Summary ---
Discharge Summary Date of Service June 24, 2016. Discharge Summary Admission Date: June 20, 2016 at 18:59 Discharge Date: June 24, 2016 Discharge Disposition: Home with services Principal Diagnosis: FOOD BOLUS IMPACTION, ESOPHAGEAL STENOSIS WITH GASTRITIS, DUODENITIS; ESOPHAGEAL DYSFUNCTION Secondary Diagnoses/Problems: Please refer to hospital course below. Procedures: s/p EGD 06/19/16 and 06/23/16 Consultations: Straw Hat Presser Dr. Payne/Dr. Wang; Decal Applier Dr. Mendes Pending Studies/Follow-Up: Will need follow up with ID ; Please refer to hospital course below. Medication Reconciliation New Medications: Pantoprazole (Protonix) 40 Mg Tab 40 MG PO DAILY for 30 Days, #30 TAB 2 Refills 30 minutes before breakfast Aspirin (Aspirin EC Low Dose) 81 Mg Ectab 81 MG PO QAM for 30 Days, #30 TABS Calcium Acetate (Phoslyra) 667 Mg/5 Ml Soln 2001 MG PO AC for 30 Days, #1350 ML 2 Refills Calcium Acetate (Phoslyra) 667 Mg/5 Ml Soln 5 ML PO UD PRN for WITH SNACKS for 30 Days, #300 ML 2 Refills Cephalexin Monohydrate (Keflex Susp) 250 Mg/5 Ml Susp 10 ML PO DAILY@2000 for 30 Days, #300 ML 2 Refills Continued Medications: Amlodipine Besylate (Amlodipine Besylate) 5 Mg Tab 2.5 MG PO DAILY, TAB Atorvastatin (Lipitor) 10 Mg Tab 10 MG PO HS, TAB B-Complex W/ C & Folic Acid (Reymundo Caps) 1 Cap Cap 1 CAP PO QPM, #30 Carvedilol (Carvedilol) 6.25 Mg Tab 6.25 MG PO BID Hydralazine Hcl (Apresoline) 25 Mg Tab 25 MG PO TID, #90 Hydrocodone/Acetaminophen 5MG/325MG ([place] 5MG/325MG) Tab 1 TAB PO Q4H PRN for Pain, #90 Isosorbide Dinitrate (Isosorbide Dinitrate) 10 Mg Tab 20 MG PO TID, #240 Levothyroxine Sodium (Levothyroxine Sodium) 50 Mcg Tab 50 MCG PO DAILY Losartan Potassium (Losartan Potassium) 25 Mg Tab 25 MG PO DAILY, #90 Discontinued Medications: Furosemide (Furosemide) 80 Mg Tab 80 MG PO DAILY, #30 Lisinopril (Lisinopril) 10 Mg Tab 10 MG PO BID, #180 Sevelamer Carbonate (Renvela) 800 Mg Tab 2400 MG PO TIDM for 90 Days, TAB 3 Refills Admission Information HPI (per Admitting provider): DATE OF ADMISSION: 06/19/2016 PRIMARY CARE DOCTOR: Dr. Willie Oliver obtained from px and records. CHIEF COMPLAINT: Ham stuck in the throat. HISTORY OF PRESENT ILLNESS: Medical history is significant for chronic respiratory failure secondary to COPD on home O2, chronic systolic heart failure secondary to ischemic cardiomyopathy (improved recent EF of 45%, TTE 2015) sp ICD, chronic left bundle branch block, hx PAF/PE off anticoagulation because of occult GI bleed/patient preference as per records, HTN, DM2, diet controlled. ESRD on HD, WANDA as per records, past tobacco abuse, hx MSSA endocarditis sp ICD/dialysis catheter removal ([facility], 03/2016) sp antibiotic rx, Recent confinement last February 2016 for malfunctioning, dialysis femoral fistula. Px transferred to [facility]. Recent confinement at [facility] for MSSA endocarditis. Large vegetation found on atrial lead of biventricular ICD. ICD and dialysis catheter removed. Px completed outpx antibiotic regimen under [facility] (Dr. Kinsey) supervision. Tonight, the patient was eating when she noted food getting stuck in the middle of her chest. Some achy chest discomfort. No unusual shortness of breath. She has trouble swallowing. She was brought to the Emergency Room. She had an EGD which disclosed food impaction in the upper third of the esophagus. Reflux esophagitis, esophageal stenosis and gastroduodenitis noted. Food bolus was removed. As per anesthesiologist, atrial/ventricular ectopy noted on the monitor. Overnight observation recommended. MEDICAL HISTORY: As above. Hemodialysis MWF 2D echo from October 2015 showed EF of 45%, moderate size wall motion abnormality involving the mid apical septum, apical inferior wall segments, moderate valvular stenosis, aortic stenosis, mild MR, PASP was 60 mmHg, severe TR, dilated IVC. Physical Exam (per Admitting): VITAL SIGNS: Blood pressure was noted to be 126/60, pulse rate 84, RR 19, temperature 36.8 and sats 97 on two liters. GENERAL: Noted to be comfortable. Occasionally coughing; hoarse. no respiratory distress, chronically ill. SKIN: Pallor. HEENT: Pale palpebral conjunctivae. Dry mucosa. NECK: No JVD , supple CHEST: Decreased breath sounds. HEART: Systolic murmur. ABDOMEN: Soft. NT EXTREMITIES: No edema, no tenderness. NEUROLOGIC: No gross focality except for mild hearing impairment. Hospital Course 81 year old female with history of ESRD, CAD, CHF, DM, HTN, Chronic Respiratory Failure on Oxygen, COPD, presenting with PVCs. FOOD BOLUS IMPACTION, ESOPHAGEAL STENOSIS WITH GASTRITIS, DUODENITIS ESOPHAGEAL DYSFUNCTION - presented with food bolus impaction - s/p EGD 06/19/16 - evaluated by Dr. Wang -Impression: - Food in the upper third of the esophagus, in the middle third of the esophagus and in the lower third of the esophagus. Removal was successful. - LA Grade C reflux esophagitis. - Esophageal stenosis. - Gastritis. - Duodenitis. Recommendation: - Discharge patient to home (with escort). - Full liquid diet for 2 weeks. No meat, no vegetables. Only pureed and foods that can be eaten with a spoon. - Use Prilosec (omeprazole) 40 mg PO BID. - Repeat procedure in 3-4 weeks for dilation, full inspection to eliminate possibility of mass that was masked by food particles and inflammation. -- however, had recurrence of symptoms on Hospital Day 2 s/p repeat EGD with esophageal dilation 06/22/[address] Payne; (+) reflux esophagitis, chronic gastritis no symptoms since, tolerating diet well -- GI recommendations: Protonix 40mg daily advance diet as tolerated ff up with GI PRN -- Speech Therapy Recommendations: 1. SLIPPERY DIET: choose loose, moist, slippery foods; avoid doughy, pasty, dry, thick foods; NO SOFT BREAD, pancakes, etc.; use condiments liberally to make foods slippery 2. SIT FULLY UPRIGHT for all oral intake and for 30-40 minutes after eating 3. Keep head of bed elevated AT LEAST 30-degrees at ALL times (even for sleep) 4. Alternate solids and liquids during meals; use warm beverages and avoid icy cold beverages 5. Eat small amounts more frequently through the day rather than three large meals -- crush all medications for now PVCs seen on initial EKG asymptomatic repeat EKG improved electrolytes ok -- continues to be asymptomatic Recent hx MSSA endocarditis sp ICD/dialysis catheter removal (03/2016, [facility]) s/p completion of antibiotic rx - discussed with ID DIONNE Walker - recommend Cephalexin PO daily for suppressive therapy Cephalexin 10ml po daily at 800pm Chronic systolic heart failure secondary to ischemic cardiomyopathy sp ICD EF 45-50% -- no signs of overt overload appears euvolemic -- continue usual medications HD per Nephrology CAD/CVA -- no cardiac symptoms Chronic resp failure to COPD on home O2 past tobacco abuse -- no signs of exacerbation HTN stable PAF, px NSR off coumadin since 2010 due to occult GI bleed/px preference as per records Chronic left bundle branch block PE off coumadin ESRD HD per Nephrology DM2 diet well-controlled as of recent outpatient HgA1c (4.6 in December 2015) Disposition d/c home today ff up with PCP in 1 week HD per Nephrology ID follow up in 1-2 weeks Total time spent on discharge = 45 minutes This includes examination of the patient, discharge planning, medication reconciliation, and communication with other providers. Discharge Instructions Discharge Instructions Date of Service June 24, 2016. Admission Reason for Admission: Atrial Ectopy, Weakness Discharge Discharge Diagnosis / Problem: FOOD BOLUS IMPACTION, ESOPHAGEAL STENOSIS Discharge Goals Goal(s): Diagnostic testing, Therapeutic intervention Activity Recommendations Activity Limitations: as noted below (NO HEAVY EXERTION UNTIL RE- EVALUATED BY PRIMARY CARE PHYSICIAN) . Instructions / Follow-Up Instructions / Follow-Up PLEASE REVIEW YOUR NEW MEDICATION LIST AND FOLLOW INSTRUCTIONS CAREFULLY. PLEASE FOLLOW SPEECH THERAPY RECOMMENDATIONS: 1. SLIPPERY DIET: choose loose, moist, slippery foods; avoid doughy, pasty, dry, thick foods; NO SOFT BREAD, pancakes, etc.; use condiments liberally to make foods slippery 2. SIT FULLY UPRIGHT for all oral intake and for 30-40 minutes after eating 3. Keep head of bed elevated AT LEAST 30-degrees at ALL times (even for sleep) 4. Alternate solids and liquids during meals; use warm beverages and avoid icy cold beverages 5. Eat small amounts more frequently through the day rather than three large meals CRUSH ALL MEDICATIONS FOR NOW. FOLLOW UP WITH DR. BOO ON TUESDAY JUNE 28, 2016 AT 11:00AM. FOLLOW UP WITH NEPHROLOGY FOR HEMODIALYSIS. FOLLOW UP WITH GASTROENTROLOGIST NEEDED. Current Hospital Diet Patient's current hospital diet: Renal Diet Discharge Diet Recommended Diet: Renal Diet Diet Texture: Mechanical Soft (ground) Procedures Procedures Performed: Esophagogastroduodenoscopy Pending Studies Studies pending at discharge: no Medical Emergencies . Who to Call and When: Medical Emergencies: If at any time you feel your situation is an emergency, please call 911 immediately. . Non-Emergent Contact Non-Emergency issues call your: Primary Care Provider Call Non-Emergent contact if: you have a fever, you have any medication questions . Past History Medical & Surgical History: (1) Dysphagia (2) Atrial ectopy (3) Weakness (4) Nausea (5) Esophageal stenosis (6) Pacemaker (7) Ischemic cardiomyopathy (8) HTN (hypertension) (9) ESRD (end stage renal disease) on dialysis (10) CHF (congestive heart failure), NYHA class II (11) DM2 (diabetes mellitus, type 2) (12) WANDA (obstructive sleep apnea) (13) LBBB (left bundle branch block) (14) Hypothyroidism (15) HLD (hyperlipidemia) (16) CAD (coronary artery disease) (17) History of TIA/CVA (18) History of atrial fibrillation (19) Head injury due to trauma (20) Hypoxia (21) Generalized weakness (22) S/P cholecystectomy (23) S/P T&A (status post tonsillectomy and adenoidectomy) (24) S/p removal of pelvic structures (25) Reduction of SBO . "Provider Documentation" section prepared by Adolfo Mosher. . VTE Core Measure Inpt VTE Proph given/why not?: SCD's
[2016-06-24] MEDS ORDERED: PANT1TAB48 PO (12:59)
[2016-08-01] MEDS ORDERED: CLOP1TAB15 PO (11:07)
[2016-08-01] MEDS ORDERED: SEVE800T7 PO (11:07)
[2016-08-01] MEDS ORDERED: OXGN (11:11)
[2016-08-01] MEDS ORDERED: IPRASOL4 INH (11:11)
[2016-08-01] MEDS ORDERED: NTRGSL/4 UT (11:12)
[2016-08-01] MEDS ORDERED: ERGO500011 PO (11:13)
[2016-08-01] MEDS ORDERED: BENZ100C84 PO (11:13)
[2016-08-31] MEDS ORDERED: PANT40TA PO (11:04)
[2016-08-31] MEDS ORDERED: CZR25 PO (11:04)
== END 2016-06-24 14:01 | disposition home or self-care (01) | DRG 393 ==
LOC: ENRESERVTM → ENRESERVDT → C.EDB 17:00 → C.2E 22:31 → OBSVTOIN 06-20 18:59
PROVIDERS: ADMIT Hospitalist; ATTEND Internal Medicine
PROC: 0DC58ZZ Extirpation of Matter from Esophagus, Via Natural or Artificial Opening Endoscopic (ICD-10-PCS; principal; 2016-06-19 19:15)
PROC: 0D758ZZ Dilation of Esophagus, Via Natural or Artificial Opening Endoscopic (ICD-10-PCS; 2016-06-22)
PROC: 0DB68ZX Excision of Stomach, Via Natural or Artificial Opening Endoscopic, Diagnostic (ICD-10-PCS; 2016-06-22)
DX: T18.128A Food in esophagus causing other injury, initial encounter (principal); Y92.009 Unspecified place in unspecified non-institutional (private) residence as the place of occurrence of the external cause; N18.6 End stage renal disease; I12.0 Hypertensive chronic kidney disease with stage 5 chronic kidney disease or end stage renal disease; I50.22 Chronic systolic (congestive) heart failure; J96.10 Chronic respiratory failure, unspecified whether with hypoxia or hypercapnia; I25.10 Atherosclerotic heart disease of native coronary artery without angina pectoris; I48.0 Paroxysmal atrial fibrillation; E78.5 Hyperlipidemia, unspecified; E03.9 Hypothyroidism, unspecified; I25.5 Ischemic cardiomyopathy; I44.7 Left bundle-branch block, unspecified; G47.33 Obstructive sleep apnea (adult) (pediatric); Z95.810 Presence of automatic (implantable) cardiac defibrillator; J44.9 Chronic obstructive pulmonary disease, unspecified; E11.21 Type 2 diabetes mellitus with diabetic nephropathy; K21.0 Gastro-esophageal reflux disease with esophagitis; Z86.73 Personal history of transient ischemic attack (TIA), and cerebral infarction without residual deficits; K22.2 Esophageal obstruction; K29.80 Duodenitis without bleeding; Z87.891 Personal history of nicotine dependence; D63.8 Anemia in other chronic diseases classified elsewhere; Z99.81 Dependence on supplemental oxygen; K29.50 Unspecified chronic gastritis without bleeding

== ENCOUNTER → 2016-08-03 | Day surgery (SDC) | payer OTHER, MEDICARE ==
[~2016-08-03] VITALS: Ht 162.6 cm; Wt 54.5 kg
[~2016-08-03] MED LIST changes: +BENZ100C84 PO; -CRG25 PO; +CRG625 PO; +CZR25 PO; +ERGO500011 PO; +FENTANYL CITRATE INJ 50 MCG/1 ML 2 ML VIAL ONE; +IPRASOL4 INH; -ISOS20TA15 PO; +ISR10 PO; -LIDO1CRE16 TOP; +LIDOCAINE HCL 2% 2 ML VIAL (20MG/ML) ONE; -LSX80 PO; +NTRGSL/4 UT; +PANT40TA PO; +PROPOFOL IV EMULSION 10 MG/ML 20 ML VIAL IV ONE; -VTMD PO
[2016-08-03 11:13] VITALS: Ht 162.6 cm; Wt 54.5 kg
== END | disposition home or self-care (01) ==
LOC: C.GI 10:56
PROVIDERS: ATTEND Internal Medicine Gastroenterology
DX: K22.2 Esophageal obstruction (principal); Z53.09 Procedure and treatment not carried out because of other contraindication

== ENCOUNTER → 2016-09-05 | Day surgery (SDC) | payer OTHER, MEDICARE ==
[2016-08-31 11:13] VITALS: Ht 162.6 cm; Wt 54.5 kg
[~2016-09-05] VITALS: Ht 162.6 cm; Wt 54.5 kg
[~2016-09-05] MED LIST changes: -ATOR10TA82 PO; +ATOR10TA88 PO; +ERGO1CAP41 PO; -ERGO500011 PO; -FENTANYL CITRATE INJ 50 MCG/1 ML 2 ML VIAL ONE; +SODIUM CHLORIDE 0.9% 500ML 500 ML IV ONE
--- NOTE | 2016-09-05 08:29 | Endo History and Physical ---
History & Physical Date of Service: Sep 05, 2016. Chief Complaint: Esophageal stricture Referring Physician: Willie History of Present Illness 81 yo who has had a food bolus with severe esophagitis and stricture in June, presents today for follow up. No complaints Past Medical History Diabetes, Arthritis, Pacemaker, Reflux, High Cholesterol, Heart Disease, CHF, Hypertension, Implantable Defibrillator, Kidney Disease, PA Past Surgical History Hx Cardiac Surgery: Yes Hx Internal Defibrillator: No Hx Pacemaker: Yes (PACEMAKER, REPLACEMENT OF PACEMAKER,REMOVAL OF PACEMAKER) Hx Abdominal Surgery: Yes (DARRION) Hx of Implantable Prosthesis: No Hx Post-Op Nausea and Vomiting: No Hx Cancer Surgery: No Hx Thoracic Surgery: No Hx Orthopedic: No Hx Urinary Tract Surgery: No Family History None Social History Smoking Status: Former Smoker Hx Substance Use: No Hx Alcohol Use: No Allergies Coded Allergies: BEE STING (Verified Allergy, Severe, ANAPHYLAXIS, 09/05/16) MELLO Inhibitors (Verified Allergy, Unknown, UNKNOWN, 09/05/16) Baclofen (Verified Adverse Reaction, Severe, PSYCHOSIS, 09/05/16) Current Medications Reported Home Medications Medications Dose Route/Sig Max Daily Dose Days Date Category Losartan Potassium 25 Mg Tab 1 Tab PO QAM 08/31/16 Reported Protonix (Pantoprazole Sodium) 40 Mg Tab 40 Mg PO QAM 08/31/16 Reported Vitamin D 37506 Unit (Ergocalciferol) 50,000 Unit Cap 1 Tab PO 1MONTH 08/01/16 Reported Tessalon Perles (Benzonatate) 100 Mg Cap 100 Mg PO TID PRN 08/01/16 Reported Nitrostat (Nitroglycerin) 0.4 Mg Tab 0.4 Mg UT PRN 08/01/16 Reported Oxygen Gas 3 Liters NA CONTINOUS 08/01/16 Reported Duoneb (Ipratropium-Albuterol) 3 Ml Nebu 1 Treatment INH Q6H PRN 08/01/16 Reported Renvela (Sevelamer Carbonate) 800 Mg Tab 3 Tab PO TIDM 90 08/01/16 Reported Plavix (Clopidogrel Bisulfate) 75 Mg Tab 75 Mg PO QPM 08/01/16 Reported [place] 5MG/325MG (Acetaminophen/Hydrocodone Bitart) Tab 1 Tab PO Q4H PRN 06/19/16 Reported Isosorbide Dinitrate 10 Mg Tab 20 Mg PO TID 06/19/16 Reported Carvedilol 6.25 Mg Tab 6.25 Mg PO BID 06/19/16 Reported [place] Caps (B-Complex W/ C & Folic Acid) 1 Cap Cap 1 Cap PO QPM 03/01/16 Reported Apresoline (Hydralazine Hcl) 25 Mg Tab 25 Mg PO TID 03/01/16 Reported Amlodipine Besylate 5 Mg Tab 2.5 Mg PO QAM 10/17/15 Reported Lipitor (Atorvastatin Calcium) 10 Mg Tab 10 Mg PO HS 08/08/13 Reported Levothyroxine Sodium 50 Mcg Tab 50 Mcg PO QAM 09/02/12 Reported Vital Signs Weight (Kilograms): 54.55 Height (Feet): 5 Height (Inches): 4 Date Time Temp Pulse Resp B/P (MAP) Pulse Ox O2 Delivery O2 Flow Rate FiO2 09/05/16 08:14 36.7 73 18 118/62 (80) 95 Room Air Physical Exam General Appearance: WD/WN, no apparent distress Respiratory/Chest: Respiratory effort: no dyspnea Auscultation: breath sounds normal, CTA except as noted, no wheezing Cardiovascular: Apical Impulse: not displaced Heart Auscultation: RRR, normal S1 Abdomen: Inspection & Palpation: soft, non-distended, no tenderness, guarding & rebound Assessment and Plan 81 yo presenting here for follow up EGD for dysphagia
--- NOTE | 2016-09-05 08:58 | Discharge Instructions ---
Endoscopy Patient Instructions Date / Procedure(s) Performed Sep 05, 2016. EGD Allergy Information Coded Allergies: BEE STING (Verified Allergy, Severe, ANAPHYLAXIS, 09/05/16) MELLO Inhibitors (Verified Allergy, Unknown, UNKNOWN, 09/05/16) Baclofen (Verified Adverse Reaction, Severe, PSYCHOSIS, 09/05/16) Discharge Date / Findings Sep 05, 2016. Small Hiatal Hernia Otherwise normal Medication Instructions Stopped Medication(s): Plavix last taken 08/29/16 Provider Instructions Activity Restrictions - No exercising or heavy lifting for 24 hours. - Do not drink alcohol the day of the procedure. - Do not drive a car or operate machinery until the day after the procedure. - Do not make any important decisions or sign important papers in 24 hours after the procedure. Following Day: - Return to full activity which may include returning to work/school. Diet Start your diet with liquids and light foods (jello, soup, juice, toast). Then eat your usual diet if not nauseated. Treatment For Common After Affects For mild abdominal pain, bloating, or excessive gas: - Rest - Eat lightly - Lie on right side Follow-Up Information Follow-up with Willie as scheduled Anesthesia Information What You Should Know You have had a procedure that required some medicine to reduce anxiety and discomfort. This treatment is called moderate sedation. After receiving the treatment, you may be sleepy, but you will be able to breathe on your own. The effects of the treatment may last for several hours. Follow these instructions along with Activity/Diet recommendations noted above: * Do NOT do anything where dizziness or clumsiness would be dangerous. * Rest quietly at home today, then you can be up and about tomorrow. * Have a responsible person stay with you the rest of today. * You may have had an I.V. today. If so, you may take the dressing off later today. Recommendations Call your doctor if: * Trouble breathing * Continuous vomiting for more than 24 hours * Temperature above 101 degrees * Severe abdominal pain or bloating * Pain not relieved by pain medicine ordered * There is increased drainage or redness from any incision * A large amount of rectal bleeding greater than 2-3 tablespoons. (If you had a polyp/s removed or have hemorrhoids, a small amount of blood - from the rectum is to be expected.) * You have any unanswered questions or concerns. IN THE EVENT OF A SERIOUS EMERGENCY, GO TO THE NEAREST EMERGENCY ROOM Your discharge instructions were prepared by provider Shreyas Wang. Patient Instructions Signature Page Heidi Noonan Patient (or Guardian) Signature/Date: I have read and understand the instructions given to me by my caregivers. Caregiver/RN/Doctor Signature/Date: The above-named patient and/or guardian has received patient instructions on this date. + Original Patient Signature Page (only) stays with chart. Please make copy for patient.
[2016-09-05 09:24] VITALS: BP 161/86; PULSE 72; O2SAT 97
--- NOTE | 2016-09-05 09:34 | Anesthesiology Progress Note ---
Anesthesia Post Op Note Date & Time Sep 05, 2016 at 09:34 Vital Signs Pain Intensity: 0 Vital Signs Past 12 Hours Date Time Temp Pulse Resp B/P (MAP) Pulse Ox O2 Delivery O2 Flow Rate FiO2 09/05/16 09:24 72 18 161/86 (111) 97 Room Air 09/05/16 09:14 69 18 145/70 (95) 97 Room Air 09/05/16 09:02 70 16 114/60 (78) 100 Room Air 09/05/16 08:14 36.7 73 18 118/62 (80) 95 Room Air Notes Mental Status: alert / awake / arousable, participated in evaluation Pt Amnestic to Procedure: Yes Nausea / Vomiting: adequately controlled Pain: adequately controlled Airway Patency, RR, SpO2: stable & adequate BP & HR: stable & adequate Hydration State: stable & adequate Anesthetic Complications: no major complications apparent
--- NOTE | 2016-09-05 09:36 | GI REPORT ---
Procedure Date: 09/05/2016 8:30 AM Procedure: Upper GI endoscopy Indications: Dysphagia, Follow-up of reflux esophagitis Medicines: General Anesthesia Complications: No immediate complications. Estimated blood loss: None. Estimated Blood Loss: Estimated blood loss: none. Procedure: Pre-Anesthesia Assessment: - Pre-Anesthesia Assessment: - Prior to the procedure, a History and Physical was performed, and patient medications, allergies and sensitivities were reviewed. The patient's tolerance of previous anesthesia was reviewed. Please see [employer] for complete details. - The risks and benefits of the procedure and the sedation options and risks were discussed with the patient. All questions were answered and informed consent was obtained. - Patient identification and proposed procedure were verified prior to the procedure by the physician and the nurse. The procedure was verified in the pre-procedure area in the procedure room. After obtaining informed consent, the endoscope was passed carefully and meticuously under direct vision and only advanced when the lumen was clearly identified, C02 insuflation was utilized throughout the entirity of the procedure. Throughout the procedure, the patient's blood pressure, pulse, and oxygen saturations were monitored continuously. After obtaining informed consent, the endoscope was passed under direct vision. Throughout the procedure, the patient's blood pressure, pulse, and oxygen saturations were monitored continuously. The scope was introduced through the mouth, and advanced to the second part of duodenum. The upper GI endoscopy was accomplished without difficulty. The patient tolerated the procedure well. Findings: A small hiatus hernia was present. No other significant abnormalities were identified in a careful examination of the esophagus. The entire examined stomach was normal. The examined duodenum was normal. Impression: - Small hiatus hernia. - Normal stomach. - Normal examined duodenum. - No specimens collected. Recommendation: - Discharge patient to home (with escort). - Return to referring physician as previously scheduled. - Continue present medications. Shreyas Wang MD 09/05/2016 8:57:21 AM This report has been signed electronically. Note Initiated On: 09/05/2016 8:30 AM I attest to the content of the Intraoperative Record and orders documented therein, exceptions below
== END | disposition home or self-care (01) ==
LOC: C.GI 07:40
PROVIDERS: ATTEND Internal Medicine
DX: R13.10 Dysphagia, unspecified (principal); K21.0 Gastro-esophageal reflux disease with esophagitis; K44.9 Diaphragmatic hernia without obstruction or gangrene; E11.9 Type 2 diabetes mellitus without complications; M19.90 Unspecified osteoarthritis, unspecified site; K21.9 Gastro-esophageal reflux disease without esophagitis; E78.00 Pure hypercholesterolemia, unspecified; I25.2 Old myocardial infarction; J44.9 Chronic obstructive pulmonary disease, unspecified; G47.33 Obstructive sleep apnea (adult) (pediatric); I25.10 Atherosclerotic heart disease of native coronary artery without angina pectoris; E78.5 Hyperlipidemia, unspecified; E03.9 Hypothyroidism, unspecified; I48.91 Unspecified atrial fibrillation; I12.0 Hypertensive chronic kidney disease with stage 5 chronic kidney disease or end stage renal disease; Z95.0 Presence of cardiac pacemaker; Z95.810 Presence of automatic (implantable) cardiac defibrillator; Z90.49 Acquired absence of other specified parts of digestive tract; Z87.891 Personal history of nicotine dependence; Z86.711 Personal history of pulmonary embolism; Z99.2 Dependence on renal dialysis

== ENCOUNTER → 2017-08-30 | Outpatient (CLI) | payer OTHER, MEDICARE ==
[~2017-08-30] MED LIST changes: +AMLO2.5T PO; -ATOR10TA88 PO; -B-COCAP21 PO; -BENZ100C84 PO; +CALC667C PO; +DOCU-94 PO; -ERGO1CAP41 PO; +ERGO500011 PO; -IPRASOL4 INH; +LDDP5 TD; -LIDOCAINE HCL 2% 2 ML VIAL (20MG/ML) ONE; +LPT10 PO; +LSX80 PO; -NRV5 PO; +ONDA4TAB9 PO; -OXGN; +OXYC-737 PO; -PANT40TA PO; +PANT40TA2 PO; -PROPOFOL IV EMULSION 10 MG/ML 20 ML VIAL IV ONE; +SENN1TAB77 PO; -SEVE800T7 PO; -SODIUM CHLORIDE 0.9% 500ML 500 ML IV ONE
--- NOTE | 2017-08-30 16:47 | DIAGNOSTIC IMAGING REPORT ---
PELVIS NO IV/ORAL CONT (CT) HISTORY: 82 years-old Female R/O FRACTRE FEMORAL NECK, RT SIDE acute right groin and right hip pain status post trauma COMPARISON: Right femur and pelvis radiographs 08/21/2017, CT abdomen and pelvis 03/16/2014 TECHNIQUE: Multiple axial CT images of the pelvis were obtained without the use of IV contrast. Coronal and sagittal reformatted images were obtained from the axial data set and were submitted for review. A dose lowering technique was used consistent with the principals of STU. FINDINGS: The bones appear at least moderately demineralized which limits evaluation for subtle acute nondisplaced fractures. There are degenerative changes with partial bony fusion about the bilateral SI joints. No sacral insufficiency fractures identified. Moderate degenerative changes about the pubic symphysis. There is a subacute to chronic appearing fracture involving the inferior right pubic ramus, image 624 series 2 with marginal cortication about the fracture fragments. No acute pelvic fracture identified. Bilateral iliac wing appear intact. 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 The right femur specifically appears intact without acute fracture or subluxation identified. Imaged lower lumbar spine appears intact. Severe facet arthropathy with spondylitic spurring. Severe intervertebral disc space narrowing at L5-S1 with circumferential disc osteophyte complex. Imaged intrapelvic structures demonstrate no acute abnormality. Colonic diverticulosis without diverticulitis. Diastases recti with small fat filled periumbilical hernia. Midline ventral abdominal wall infraumbilical hernia containing fat is also noted, diastases 1.6 cm. Since of calcification of the aorta, iliac and femoral arteries. Partially imaged stent graft about the left superficial femoral artery with an ovoid 2.2 x 1.6 cm intermediate attenuating collection noted superficial to the stent graft. Small right hip joint effusion. Subcutaneous induration about the sacral soft tissues may reflect a decubitus ulcer. IMPRESSION: 1. Moderate bone demineralization without acute fracture or dislocation identified, specifically the imaged right femur appears intact. 2. Subacute to chronic appearing nondisplaced fracture of the inferior right pubic ramus. 3. Extensive arterial calcifications with left superficial femoral arterial stent graft partially imaged. 2.2 cm intermediate attenuating collection is noted superficial to the stent graft which may reflect a postprocedural fluid collection. Correlate with clinical exam. 4. Colonic diverticulosis without diverticulitis. The above report was generated using voice recognition software. It may contain grammatical, syntax or spelling errors. Electronically signed by: Sadi Berg M.D. 08/30/2017 4:46 PM Dictated Date/Time: 08/30/2017 4:35 PM
== END | disposition home or self-care (01) ==
LOC: C.CTS 16:24
PROVIDERS: ATTEND Physical Medicine & Rehabilitation
DX: R10.2 Pelvic and perineal pain (principal); I70.201 Unspecified atherosclerosis of native arteries of extremities, right leg; S32.591A Other specified fracture of right pubis, initial encounter for closed fracture; X58.XXXA Exposure to other specified factors, initial encounter